=== PATIENT | male | born 1945 | race Caucasian/White ===

== ENCOUNTER 2016-03-20 11:33 | Emergency (ER) | payer OTHER ==
[~2016-03-20] VITALS: Ht 190.5 cm; Wt 101.6 kg
[~2016-03-20 11:33] MED LIST: ALL300 PO; ATOR-26 PO; CARB25TA16 PO; DILT180C9 PO; FISH1CAP3 PO; FURO-85 PO; GABA-112 PO; MCRK20 PO; MULT-506 PO; PRLSR20 PO; SPIR25TA PO; [UNRECOGNIZED DRUG - CODE] PO
[2016-03-20 11:39] VITALS: TEMP 36.5; Ht 190.5 cm; Wt 101.6 kg
--- NOTE | 2016-03-20 12:37 | EMERGENCY ROOM VISIT NOTE ---
History Report prepared by Ayala: Jesusita Petty Under the Supervision of: Dr. Lachelle Bull D.O. First contact with patient: 12:10 Chief Complaint: LEG PAIN,LEG INJURY Stated Complaint: SWELLING/PAIN TO LEGS HX: EDEMA History of Present Illness The patient is a 70 year old male who presents to the Emergency Room with complaints of worsened bilateral leg swelling over the past 4-5 days. The swelling is worse on the right leg to the point that he had trouble putting on his right shoe. He also complains of some bilateral leg pain. The patient has a history of neuropathy and edema. [facility], he told them about his symptoms and they recommended that he be seen at a hospital. Denies cough, chest pain, shortness of breath, or other complaints. Source of History: patient Onset: 4-5 days ago Position: leg (bilateral, right worse than left) Timing: worsening Associated Symptoms: No SOB, No chest pain, No cough Note: Other symptoms: leg swelling Review of Systems See HPI for pertinent positives & negatives. A total of 10 systems reviewed and were otherwise negative. Past Medical & Surgical Medical Problems: (1) Hypertension Family History Diabetes mellitus Social History Smoking Status: Former Smoker Alcohol Use: occasionally Marital Status: Housing Status: lives with family Occupation Status: retired Current/Historical Medications Scheduled Allopurinol (Allopurinol), 300 MG PO DAILY Amantadine Hcl (Amantadine Hcl), 100 MG PO BID Atorvastatin (Lipitor), 40 MG PO DAILY Carbidopa/Levodopa (Sinemet 25MG/100MG), 1 TAB PO DAILY Diltiazem Hcl (Tiazac), 180 MG PO BID Fish Oil-Cholecalciferol (Fish Oil + D3), 1 CAP PO DAILY Furosemide (Lasix), 20 MG PO DAILY Gabapentin (Neurontin), 300 MG PO TID Multivitamin (Multivitamin), 1 TAB PO DAILY Omeprazole (Prilosec), 20 MG PO DAILY Potassium Ext Rel (Klor-Con), 20 MEQ PO BID Rosuvastatin Calcium (Crestor), 20 MG PO DAILY Spironolactone (Aldactone), 25 MG PO DAILY Allergies Coded Allergies: No Known Allergies (Verified , 03/20/16) Physical Exam Vital Signs Date Time Temp Pulse Resp B/P Pulse Ox O2 Delivery O2 Flow Rate FiO2 03/20/16 14:35 65 18 134/78 98 03/20/16 13:29 65 17 131/87 97 Room Air 03/20/16 12:47 73 03/20/16 11:39 36.5 91 20 126/76 95 Room Air Physical Exam HEENT: Head - normocephalic and atraumatic Pupils are equal, round, and reactive to light. Extraocular eye muscles are intact, and sclera are anicteric. Nose - moist nasal mucosa without discharge. Mouth - moist buccal mucosa. Oropharynx is nonerythematous and there is no tonsillar exudate or edema noted. Neck: Supple; no JVD, nuchal rigidity, cervical lymphadenopathy. Heart: Regular rate and rhythm. There is a normal S1 and S2 with no murmurs, clicks, or gallops appreciated. Lungs: Clear to auscultation bilaterally with no wheezes, rales, or rhonchi. Abdomen: Soft, completely nontender, nondistended, with good bowel sounds. There are no palpable pulsatile masses or hepatosplenomegaly. There is no guarding, rigidity, or rebound noted. Extremities: No evidence of cyanosis or clubbing. Swelling to both legs, right worse than left. Small red area proximal right lateral fibula. This is on the anterior surface of the right lower extremity and does not appear cellulitic. There are easily palpable peripheral pulses. Skin: warm and dry with good turgor. Medical Decision & Procedures ER Provider Diagnostic Interpretation: Radiology results as stated below per my review and the radiologist's interpretation: ULTRASOUND RIGHT VENOUS DOPP LOWER EXT UNILAT CLINICAL HISTORY: Right leg swelling COMPARISON STUDY: No previous studies for comparison. FINDINGS: Real-time and color flow Doppler imaging were performed. Flow was seen within the femoral, popliteal and calf veins with no intraluminal thrombus demonstrated. The saphenous vein is patent. IMPRESSION: No evidence of right lower extremity DVT. Electronically signed by: Anup Dempsey M.D. 03/20/2016 1:27 PM Dictated Date/Time: 03/20/2016 1:27 PM ECG Indication: other (leg swelling) Rate (beats per minute): 69 Rhythm: normal sinus Findings: no acute ischemic change, no ectopy ED Course 1229: Past medical records reviewed. The patient was evaluated in room C7. A complete history and physical exam was performed. The patient will go for ultrasound of the right lower extremity to rule out DVT. 1349: Upon reevaluation, the patient was doing well. I discussed findings and results with the patient. I strongly encouraged him to use a walker or a cane due to the pain and neuropathy in his legs. He verbalized agreement of the treatment plan. The patient was discharged home. Medical Decision The patient is a 70 year old male who presents to the ED with leg swelling. Differential diagnosis includes DVT, CHF, peripheral artery disease, venostasis. The patient does have some increased swelling of the right leg. Ultrasound of that extremity shows no evidence of DVT. I've encouraged the patient to keep the leg elevated to minimize swelling. He should watch his salt intake. I've asked him to please use his cane or walker because of his neuropathy. He can follow-up with his PCP if symptoms persist. Impression Primary Impression: Lower extremity edema Scribe Attestation The scribe's documentation has been prepared under my direction and personally reviewed by me in its entirety. I confirm that the note above accurately reflects all work, treatment, procedures, and medical decision making performed by me. Departure Information Dispostion Home / Self-Care Referrals Diana Witt (PCP) Patient Instructions My [facility] Additional Instructions Rest with your legs elevated. Use your walker or cane to avoid falls Follow up with PCP if symptoms are worsening. Problem Qualifiers Primary Impression: Lower extremity edema Laterality: bilateral Qualified Codes: R60.0 - Localized edema
[2016-03-20] MEDS ORDERED: CARB25TA12 PO (12:42)
[2016-03-20] MEDS ORDERED: ALL300 PO (12:42)
[2016-03-20] MEDS ORDERED: ROSU20TA PO (12:42)
[2016-03-20] MEDS ORDERED: POTA20TA16 PO (12:45)
[2016-03-20] MEDS ORDERED: AMAN100C18 PO (12:46)
--- NOTE | 2016-03-20 13:29 | DIAGNOSTIC IMAGING REPORT ---
ULTRASOUND RIGHT VENOUS DOPP LOWER EXT UNILAT CLINICAL HISTORY: Right leg swelling COMPARISON STUDY: No previous studies for comparison. FINDINGS: Real-time and color flow Doppler imaging were performed. Flow was seen within the femoral, popliteal and calf veins with no intraluminal thrombus demonstrated. The saphenous vein is patent. IMPRESSION: No evidence of right lower extremity DVT. Electronically signed by: Anup Dempsey M.D. 03/20/2016 1:27 PM Dictated Date/Time: 03/20/2016 1:27 PM
[2016-03-20 14:35] VITALS: BP 134/78; PULSE 65; O2SAT 98
== END 2016-03-20 14:35 | disposition home or self-care (01) ==
LOC: C.EDB 11:37 → C.EDC 14:35
DX: R60.0 Localized edema (principal); M79.604 Pain in right leg; M79.605 Pain in left leg; L53.9 Erythematous condition, unspecified; G62.9 Polyneuropathy, unspecified; I10 Essential (primary) hypertension; Z83.3 Family history of diabetes mellitus; Z87.891 Personal history of nicotine dependence

== ENCOUNTER 2016-12-12 04:37 | Inpatient (IN) | payer OTHER ==
[2016-12-12] VITALS (7 sets, daily range): BP systolic 124–156; BP diastolic 89–95; PULSE 83–117; TEMP 36.7–37.2; O2SAT 94–98; Ht 190.5 cm; Wt 99.8 kg
[~2016-12-12] VITALS: Ht 190.5 cm; Wt 99.8 kg
[~2016-12-12 04:37] MED LIST changes: +AMAN100C18 PO; +CARB25TA12 PO; -CARB25TA16 PO; -MCRK20 PO; +POTA20TA16 PO; +ROSU20TA PO; -[UNRECOGNIZED DRUG - CODE] PO
--- NOTE | 2016-12-12 05:10 | EMERGENCY ROOM VISIT NOTE ---
History Report prepared by Ayala: Papito Antonio Under the Supervision of: Dr. Lachelle Bull D.O. First contact with patient: 04:54 Chief Complaint: ABDOMINAL PAIN Stated Complaint: ABD PAIN,DIARRHEA Nursing Triage Summary: mid upper abdominal pain. 12/09. started this evening around 2100 History of Present Illness The patient is a 71 year old male who presents to the Emergency Room with complaints of worsening abdominal pain that started at 1800. He rates his pain as a 10/10 in severity. The patient states that he did not feel well yesterday. He reports that he started to experience diarrhea, a cough, and abdominal pain that worsened throughout the day. He reports that it feels "like a gallbladder attack", even though he had a cholecystectomy 4 years ago. The patient states that he also has a history of C. Diff. and is worried that is what is causing his symptoms. Source of History: patient Onset: 1800 yesterday Position: abdomen Symptom Intensity: 12/09 Timing: worsening Associated Symptoms: + cough, + diarrhea Review of Systems See HPI for pertinent positives & negatives. A total of 10 systems reviewed and were otherwise negative. Past Medical & Surgical Medical Problems: (1) Hypertension Family History Diabetes mellitus Social History Smoking Status: Never Smoker Alcohol Use: occasionally Marital Status: Housing Status: lives with family Occupation Status: retired Current/Historical Medications Scheduled Allopurinol (Allopurinol), 300 MG PO DAILY Amantadine Hcl (Amantadine Hcl), 100 MG PO BID Atorvastatin (Lipitor), 40 MG PO DAILY Carbidopa-Levodopa (Sinemet Cr 50-200 mg), 1 TAB PO HS Carbidopa/Levodopa (Sinemet 25MG/100MG), 3 TABS PO BID AT 0600 & 1100 Carbidopa/Levodopa (Sinemet 25MG/100MG), 2 TABS DAILY AT 1600 Diltiazem Hcl (Tiazac), 180 MG PO BID Fish Oil-Cholecalciferol (Fish Oil + D3), 1 CAP PO DAILY Furosemide (Lasix), 20 MG PO DAILY Gabapentin (Neurontin), 300 MG PO TID Multivitamin (Multivitamin), 1 TAB PO DAILY Omeprazole (Prilosec), 20 MG PO DAILY Potassium Ext Rel (Klor-Con), 20 MEQ PO BID Rosuvastatin Calcium (Crestor), 20 MG PO DAILY Spironolactone (Aldactone), 25 MG PO DAILY Allergies Coded Allergies: No Known Allergies (Verified , 12/12/16) Physical Exam Vital Signs Date Time Temp Pulse Resp B/P (MAP) Pulse Ox O2 Delivery O2 Flow Rate FiO2 12/12/16 05:03 92 18 128/99 95 Room Air 12/12/16 05:00 93 12/12/16 04:40 36.7 106 18 112/73 95 Room Air Physical Exam HEENT: Head - normocephalic and atraumatic Pupils are equal, round, and reactive to light. Extraocular eye muscles are intact, and sclera are anicteric. Nose - moist nasal mucosa without discharge. Mouth - moist buccal mucosa. Oropharynx is nonerythematous and there is no tonsillar exudate or edema noted. Neck: Supple; no JVD, nuchal rigidity, cervical lymphadenopathy. Heart: Regular rate and rhythm. There is a normal S1 and S2 with no murmurs, clicks, or gallops appreciated. Lungs: Clear to auscultation bilaterally with no wheezes, rales, or rhonchi. Abdomen: Completely nontender, significantly distended, with absent bowel sounds. There are no palpable pulsatile masses or hepatosplenomegaly. There is no guarding, rigidity, or rebound noted. Extremities: No evidence of cyanosis, clubbing, or edema. There are easily palpable peripheral pulses. Skin: warm and dry with good turgor and no rashes. Medical Decision & Procedures ER Provider Diagnostic Interpretation: X-ray results as stated below per interpretation by me: OBSTRUCTION SERIES Multiple dilated loops of small bowel with air fluid levels. Laboratory Results 12/12/16 04:55 Red Blood Count 5.25, Mean Corpuscular Volume 92.8, Mean Corpuscular Hemoglobin 33.3, Mean Corpuscular Hemoglobin Concent 35.9, Mean Platelet Volume 11.7, Neutrophils (%) (Auto) 77.3, Lymphocytes (%) (Auto) 14.4, Monocytes (%) (Auto) 7.3, Eosinophils (%) (Auto) 0.5, Basophils (%) (Auto) 0.2, Neutrophils # (Auto) 11.57, Lymphocytes # (Auto) 2.16, Monocytes # (Auto) 1.09, Eosinophils # (Auto) 0.08, Basophils # (Auto) 0.03 12/12/16 04:55 Test 12/12/16 04:55 12/12/16 05:35 White Blood Count 14.98 K/uL (4.8-10.8) Red Blood Count 5.25 M/uL (4.7-6.1) Hemoglobin 17.5 g/dL (14.0-18.0) Hematocrit 48.7 % (42-52) Mean Corpuscular Volume 92.8 fL (80-100) Mean Corpuscular Hemoglobin 33.3 pg (25-34) Mean Corpuscular Hemoglobin Concent 35.9 g/dl (32-36) Platelet Count 211 K/uL (130-400) Mean Platelet Volume 11.7 fL (7.4-10.4) Neutrophils (%) (Auto) 77.3 % Lymphocytes (%) (Auto) 14.4 % Monocytes (%) (Auto) 7.3 % Eosinophils (%) (Auto) 0.5 % Basophils (%) (Auto) 0.2 % Neutrophils # (Auto) 11.57 K/uL (1.4-6.5) Lymphocytes # (Auto) 2.16 K/uL (1.2-3.4) Monocytes # (Auto) 1.09 K/uL (0.11-0.59) Eosinophils # (Auto) 0.08 K/uL (0-0.5) Basophils # (Auto) 0.03 K/uL (0-0.2) RDW Standard Deviation 45.8 fL (36.4-46.3) RDW Coefficient of Variation 13.5 % (11.5-14.5) Immature Granulocyte % (Auto) 0.3 % Immature Granulocyte # (Auto) 0.05 K/uL (0.00-0.02) Anion Gap 9.0 mmol/L (3-11) Est Creatinine Clear Calc Drug Dose 59.4 ml/min Estimated GFR () 53.9 Estimated GFR (Non- 46.5 BUN/Creatinine Ratio 15.4 (10-20) Calcium Level 9.0 mg/dl (8.5-10.1) Total Bilirubin 1.4 mg/dl (0.2-1) Direct Bilirubin 0.4 mg/dl (0-0.2) Aspartate Amino Transf (AST/SGOT) 51 U/L (15-37) Alanine Aminotransferase (ALT/SGPT) 52 U/L (12-78) Alkaline Phosphatase 159 U/L (45-117) Total Protein 7.9 gm/dl (6.4-8.2) Albumin 4.0 gm/dl (3.4-5.0) Lipase 280 U/L (73-393) Urine Color ORANGE Urine Appearance CLOUDY (CLEAR) Urine pH 5.0 (4.5-7.5) Urine Specific [place] 1.039 (1.000-1.030) Urine Protein 1+ (NEG) Urine Glucose (UA) NEG (NEG) Urine Ketones 1+ (NEG) Urine Occult Blood NEG (NEG) Urine Nitrite POS (NEG) Urine Bilirubin NEG (NEG) Urine Urobilinogen NEG (NEG) Urine Leukocyte Esterase SMALL (NEG) Urine WBC (Auto) 5-10 /hpf (0-5) Urine RBC (Auto) 0-4 /hpf (0-4) Urine Hyaline Casts (Auto) 10-30 /lpf (0-5) Urine Epithelial Cells (Auto) >30 /lpf (0-5) Urine Bacteria (Auto) NEG (NEG) Urine Pathogenic Casts 0-3 GRANULAR CASTS /lpf (0) Urine Mucus PRESENT (NONE PRSENT) Laboratory results per my review. Medications Administered Medications (Trade) Dose Ordered Sig/Sylvia Route Start Time Stop Time Status Last Admin Dose Admin Sodium Chloride 1,000 ml @ 200 mls/hr Q5H STAT IV 12/12/16 05:36 12/12/16 10:35 12/12/16 06:29 200 MLS/HR Procedure Medications administered include: Sodium Chloride 1000 ml @ 200 mls/hr IV. ECG Indication: abdominal pain (epigastric) Rate (beats per minute): 96 Rhythm: normal sinus Findings: no acute ischemic change, no ectopy ED Course 0501: The patient was evaluated in room B09. A complete history and physical examination were performed. Nursing notes and previous electronic medical records were reviewed. IV lock was established and labs were drawn as above. A urine specimen was collected. 0536: Ordered Sodium Chloride 1000 ml @ 200 mls/hr IV. The patient declined wanting anything for pain. He went for CT of the abdomen/pelvis an obstruction series. This showed evidence of a small bowel obstruction with dilated loops of small bowel and air-fluid levels. 0542: I reevaluated the patient and updated him on his results. I discussed the treatment plan. He will be receiving an NG tube. The patient agrees to the plan and will be further evaluated. 0546: I discussed the patient's case with Joaquin Centeno. He understands the patient's condition and agrees to accept the patient. The patient will be further evaluated. 0631: Nursing informed me that the patient was unable to tolerate the NG tube placement. Medical Decision The patient is a 71 year old male who presents to the ED with worsening abdominal pain that began at 1800 yesterday. Differential diagnosis includes pancreatitis, SBO, Clostridium Difficile, colitis, urinary obstruction. Lab results show: White blood count14.9 stable H&H, BUN 23, Creatinine 1.5 elevated compared to previous labs, Glucose 146, total bilirubin 1.4, Direct bilirubin 0.4. alkaline phosphatase 159, 1+ ketones, positive nitrite, small leukocyte esterase, 5-10 WBC, negative bacteria. This is a 71-year-old male patient presents to the emergency department with epigastric and right upper quadrant abdominal pain since last evening. His abdomen is significantly distended and tender to palpation. Obstruction series shows no evidence of free air but does reveal dilated loops of small bowel with air-fluid levels consistent with a bowel obstruction. Patient has had an episode of stooling. The stool is partially formed and was not diarrhea. I do not suspect C. difficile. [facility] will [facility] for further management. Medication Reconcilliation Current Medication List: was personally reviewed by me Blood Pressure Screening Patient's blood pressure: Normal blood pressure Consults Time Called: 05 Consulting Physician: Joaquin Centeno Returned Call: [phone] [facility] understands the patient's condition and agrees to accept the patient. The patient will be further evaluated. Impression Primary Impression: Partial small bowel obstruction Scribe Attestation The scribe's documentation has been prepared under my direction and personally reviewed by me in its entirety. I confirm that the note above accurately reflects all work, treatment, procedures, and medical decision making performed by me. Departure Information Dispostion Being Evaluated By Hospitalist Referrals No Doctor, Assigned (PCP) Patient Instructions My [facility] [address]
[2016-12-12] MEDS ORDERED: CARB1TAB59 PO (05:12)
[2016-12-12] MEDS ORDERED: NRN/300 PO (05:12)
[2016-12-12] MEDS ORDERED: CARB25TA12 (05:12)
[2016-12-12 05:28] LABS: BASO % 0.2 %; BASO ABS # 0.03 K/uL (0-0.2); COMPLETE YES; EOS % 0.5 %; HEMATOCRIT 48.7 % (42-52); IG% 0.3 %; LYMPH % 14.4 %; LYMPH ABS # 2.16 K/uL (1.2-3.4); MEAN CELL VOLUME 92.8 fL (80-100); MEAN CORPUSCULAR HEMOGLOBIN 33.3 pg (25-34); MEAN CORPUSCULAR HGB CONC 35.9 g/dl (32-36); MEAN PLATELET VOLUME 11.7 fL (7.4-10.4); MONO % 7.3 %; NEUT % 77.3 %; PLATELET COUNT 211 K/uL (130-400); RED BLOOD COUNT 5.25 M/uL (4.7-6.1); WHITE BLOOD COUNT 14.98 K/uL (4.8-10.8)
[2016-12-12 05:35] LABS: BUN/CREATININE RATIO 15.4 (10-20); CREATININE 1.5 mg/dl (0.60-1.40); POTASSIUM 4.2 mmol/L (3.5-5.1)
[2016-12-12] MEDS ORDERED: SODIUM CHLORIDE 0.9% 1000ML 1,000 ML IV STA (05:36)
[2016-12-12] MEDS ORDERED: ONDANSETRON INJ 2 MG/ML 2 ML VIAL IV PRN (06:30)
[2016-12-12] MEDS ORDERED: ACETAMINOPHEN 325 MG TAB PO PRN (06:30)
[2016-12-12 06:33] LABS: URINE APPEARANCE CLOUDY (CLEAR); URINE COLOR ORANGE; URINE EPITHELIAL CELL AUTO >30 /lpf (0-5); URINE NITRITE POS (NEG); URINE SPECIFIC GRAVITY 1.039 (1.000-1.030); UROBILINOGEN NEG (NEG)
[2016-12-12 06:34] LABS: MANUAL MICROSCOPIC REQUIRED? NO; REVIEW REQ? YES
[2016-12-12 06:35] LABS: URINE BILIRUBIN NEG (NEG)
[2016-12-12] MEDS ORDERED: MoRPHine SULFATE 2 MG/ML CARP IV PRN (06:45)
[2016-12-12 06:47] LABS: URINE PATH CASTS 0-3 GRANULAR CASTS /lpf (0)
[2016-12-12 06:49] LABS: URINE MUCUS PRESENT (NONE PRSENT)
--- NOTE | 2016-12-12 06:53 | DIAGNOSTIC IMAGING REPORT ---
PA CHEST RADIOGRAPH AND UPRIGHT AND SUPINE AP RADIOGRAPHS OF THE ABDOMEN CLINICAL HISTORY: Nausea and vomiting. Evaluate for small bowel obstruction. COMPARISON STUDY: Chest radiograph June 03, [address] of the abdomen and pelvis July 18, 2014. FINDINGS: Moderate elevation of the right hemidiaphragm is unchanged. Linear bibasilar opacities suggest atelectasis. There is no evidence of pulmonary edema. No pneumothorax or pleural effusion is present. There is no free air. Numerous loops of moderately dilated small bowel measure up to 4.8 cm in caliber. These are clustered within the right aspect of the abdomen. There are pelvic surgical clips. There are cholecystectomy clips. IMPRESSION: 1. Numerous loops of moderately dilated small bowel consistent with a small bowel obstruction. 2. No free air. 3. No acute cardiopulmonary findings. Electronically signed by: Jaiden Diggs M.D. 12/12/2016 6:52 AM Dictated Date/Time: 12/12/2016 6:49 AM
--- NOTE | 2016-12-12 07:16 | History and Physical ---
History & Physical Date & Time of Service: Dec 12, 2016 at 06:50 Chief Complaint: Abd Pain,Diarrhea Primary Care Physician: Diana Witt History of Present Illness Source: patient Patient is a 71 yr male with PMH of Parkinson's disease, HTN, HLP, Gout, GERD, peripheral Neuropathy, SBO and history of C.diff presents with history of worsening abdominal pain associated with nausea, vomiting and diarrhea since yesterday. Reports abdominal pain is diffuse, constant, sharp to dull, 9/10, non radiating and with out any aggravating/relieving factors. Also reports diarrhea, non bloody yesterday which has subsided today after use of pepto- bismol. States he had 2 episodes of watery, non bloody vomitus as well and has intermittent dizziness. He had cholecystectomy, prostatectomy and appendectomy in the past. Denies any history of fever, chills, chest pain, SOB, headache, change in vision, dysuria, cough, wheezing, recent change in medications. Past Medical/Surgical History Medical Problems: (1) Hypertension Status: Chronic Family History Diabetes mellitus Reviewed, Not contributory Social History Smoking Status: Former Smoker Alcohol Use: socially Drug Use: none Marital Status: Housing status: lives with family Occupational Status: retired Immunizations History of Influenza Vaccine: Yes Influenza Vaccine Date: Dec 06, 2009 History of Tetanus Vaccine?: Yes Tetanus Immunization Date: Dec 07, 2002 History of Pneumococcal: No History of Hepatitis B Vaccine: No Multi-Drug Resistant Organisms History of MDRO: No Allergies Coded Allergies: No Known Allergies (Verified , 12/12/16) Home Medications Scheduled Allopurinol (Allopurinol), 300 MG PO DAILY Amantadine Hcl (Amantadine Hcl), 100 MG PO BID Atorvastatin (Lipitor), 40 MG PO DAILY Carbidopa-Levodopa (Sinemet Cr 50-200 mg), 1 TAB PO HS Carbidopa/Levodopa (Sinemet 25MG/100MG), 3 TABS PO BID AT 0600 & 1100 Carbidopa/Levodopa (Sinemet 25MG/100MG), 2 TABS DAILY AT 1600 Diltiazem Hcl (Tiazac), 180 MG PO BID Fish Oil-Cholecalciferol (Fish Oil + D3), 1 CAP PO DAILY Furosemide (Lasix), 20 MG PO DAILY Gabapentin (Neurontin), 300 MG PO TID Multivitamin (Multivitamin), 1 TAB PO DAILY Omeprazole (Prilosec), 20 MG PO DAILY Potassium Ext Rel (Klor-Con), 20 MEQ PO BID Rosuvastatin Calcium (Crestor), 20 MG PO DAILY Spironolactone (Aldactone), 25 MG PO DAILY Review of Systems See HPI for pertinent positives & negatives. A total of 10 systems reviewed and were otherwise negative. Physical Exam Vital Signs Date Time Temp Pulse Resp B/P (MAP) Pulse Ox O2 Delivery O2 Flow Rate FiO2 12/12/16 05:03 92 18 128/99 95 Room Air 12/12/16 05:00 93 12/12/16 04:40 36.7 106 18 112/73 95 Room Air General Appearance: WD/WN, no apparent distress Head: normocephalic, atraumatic Eyes: normal inspection, PERRL, EOMI, sclerae normal ENT: normal ENT inspection, hearing grossly normal Neck: supple, no JVD, trachea midline Respiratory/Chest: chest non-tender, lungs clear, no accessory muscle use, + decreased breath sounds Cardiovascular: regular rate, rhythm, no edema, no JVD, no murmur Abdomen/GI: soft, + tenderness (Epigastric, LUQ), + pertinent finding ( Distended, decreased bowel sounds) Back: normal inspection Extremities/Musculoskelatal: normal inspection, no pedal edema 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, no motor/sensory deficits, alert, normal mood/affect, oriented x 3 Skin: normal color, warm/dry Diagnostics Laboratory Results Results Past 24 Hours Test 12/12/16 04:55 12/12/16 05:35 Range/Units White Blood Count 14.98 4.8-10.8 K/uL Red Blood Count 5.25 4.7-6.1 M/uL Hemoglobin 17.5 14.0-18.0 g/dL Hematocrit 48.7 42-52 % Mean Corpuscular Volume 92.8 80-100 fL Mean Corpuscular Hemoglobin 33.3 25-34 pg Mean Corpuscular Hemoglobin Concent 35.9 32-36 g/dl Platelet Count 211 130-400 K/uL Mean Platelet Volume 11.7 7.4-10.4 fL Neutrophils (%) (Auto) 77.3 % Lymphocytes (%) (Auto) 14.4 % Monocytes (%) (Auto) 7.3 % Eosinophils (%) (Auto) 0.5 % Basophils (%) (Auto) 0.2 % Neutrophils # (Auto) 11.57 1.4-6.5 K/uL Lymphocytes # (Auto) 2.16 1.2-3.4 K/uL Monocytes # (Auto) 1.09 0.11-0.59 K/uL Eosinophils # (Auto) 0.08 0-0.5 K/uL Basophils # (Auto) 0.03 0-0.2 K/uL RDW Standard Deviation 45.8 36.4-46.3 fL RDW Coefficient of Variation 13.5 11.5-14.5 % Immature Granulocyte % (Auto) 0.3 % Immature Granulocyte # (Auto) 0.05 0.00-0.02 K/uL Sodium Level 139 136-145 mmol/L Potassium Level 4.2 3.5-5.1 mmol/L Chloride Level 105 98-107 mmol/L Carbon Dioxide Level 25 21-32 mmol/L Anion Gap 9.0 3-11 mmol/L Blood Urea Nitrogen 23 7-18 mg/dl Creatinine 1.50 0.60-1.40 mg/dl Est Creatinine Clear Calc Drug Dose 59.4 ml/min Estimated GFR () 53.9 Estimated GFR (Non- 46.5 BUN/Creatinine Ratio 15.4 10-20 Random Glucose 146 70-99 mg/dl Calcium Level 9.0 8.5-10.1 mg/dl Total Bilirubin 1.4 0.2-1 mg/dl Direct Bilirubin 0.4 0-0.2 mg/dl Aspartate Amino Transf (AST/SGOT) 51 15-37 U/L Alanine Aminotransferase (ALT/SGPT) 52 12-78 U/L Alkaline Phosphatase 159 45-117 U/L Total Protein 7.9 6.4-8.2 gm/dl Albumin 4.0 3.4-5.0 gm/dl Lipase 280 73-393 U/L Urine Color ORANGE Urine Appearance CLOUDY CLEAR Urine pH 5.0 4.5-7.5 Urine Specific [place] 1.039 1.000-1.030 Urine Protein 1+ NEG Urine Glucose (UA) NEG NEG Urine Ketones 1+ NEG Urine Occult Blood NEG NEG Urine Nitrite POS NEG Urine Bilirubin NEG NEG Urine Urobilinogen NEG NEG Urine Leukocyte Esterase SMALL NEG Urine WBC (Auto) 5-10 0-5 /hpf Urine RBC (Auto) 0-4 0-4 /hpf Urine Hyaline Casts (Auto) 10-30 0-5 /lpf Urine Epithelial Cells (Auto) >30 0-5 /lpf Urine Bacteria (Auto) NEG NEG Urine Pathogenic Casts 0-3 GRANULAR CASTS 0 /lpf Urine Mucus PRESENT NONE PRSENT Microbiology Results 12/12/16 C.difficile Toxin B Gene (PCR), Received Pending Diagnostic Radiology Abdominal X ray: findings showed Multiple dilated loops of small bowel with air fluid levels suggestive of SBO Official read is pending EKG EKG: NSR, LAFB Impression Assessment and Plan Abdominal pain secondary to SBO: h/o SBO and cholecystectomy, prostatectomy and appendectomy NG tube, IV fluids, pain control Surgery consulted NPO for now Diarrhea: Likely secondary to above H/O C.diff Check stool for C.diff LLUVIA: likely prerenal Cr: 1.5 on admission IV fluids Hold diuretics for now monitor renal function avoid nephrotoxic meds as able Leukocytosis: Likely reactive Contaminated Urine sample Afebrile, denies dysuria Urine culture Hold Abx for now check lactate, procalcitonin Parkinson's disease: continue home meds HTN: Continue BB Diuretics held secondary to LLUVIA monitor Gout: on allopurinol GERD: continue PPI Peripheral Neuropathy: continue gabapentin DVT Px: Heparin SQ Code Status: Full Code VTE Prophylaxis VTE Risk Assessment Done? Y/N: Yes Risk Level: Low
[2016-12-12 08:27] LABS: INR 1.1 (0.9-1.1); PROTHROMBIN TIME (PATIENT) 11.3 SECONDS (9.0-12.0)
[2016-12-12] MEDS ORDERED: INFLUENZA VACCINE HIGH DOSE 65+ 0.5 ML SYR IM. ONE (08:45)
[2016-12-12] MEDS ORDERED: INFLUENZA ADMINISTRATION CHARGE ONE (08:45)
[2016-12-12] MEDS ORDERED: DILTIAZEM HCL (TIAzac) 180 MG CAPCR PO SCH (09:00)
[2016-12-12] MEDS ORDERED: ALLOPURINOL 300 MG TAB PO SCH (09:00)
[2016-12-12] MEDS: SODIUM CHLORIDE 0.9% 1000ML 1,000 ML IV SCH ×3 (09:02→23:33)
--- NOTE | 2016-12-12 09:05 | SURGICAL CONSULTATION ---
DATE OF ADMISSION: 12/12/2016 REASON FOR CONSULTATION: Bowel obstruction. HISTORY OF PRESENT ILLNESS: The patient is a 71-year-old male who has had prior surgeries including cholecystectomy, prostatectomy and appendectomy who presents to the Emergency Room with abdominal pain, nausea and vomiting and some diarrhea. He has a remote history of C. difficile also on note is that he is dehydrated with elevated white blood cell count, H&H, and BUN and creatinine. He did have an abdominal film which does show dilated loops of small bowel. I did attempt NG tube placement in the Emergency Room with no success apparently and it was coming out of his mouth. REVIEW OF SYSTEMS: He does not have any evidence of fever, chills, chest pain, shortness of breath, headache, change in vision, dysuria, cough, wheezing. Other review of systems including 10 systems is negative. FAMILY AND SOCIAL HISTORY: Noncontributory. ALLERGIES: He has no known drug allergies. MEDICATIONS: Please see list for his medications. PHYSICAL EXAMINATION: GENERAL: He is well-developed, well-nourished male. HEAD: His head is atraumatic. EYES: His sclerae are normal. NECK: Supple. SKIN: Normal color without rashes. CHEST: Clear. HEART: Regular rate and rhythm. ABDOMEN: Distended. He has minimal tenderness, some to deep palpation in the upper abdomen. He does have some bowel sounds but diminished. EXTREMITIES: Without significant edema. SKIN: Normal color. IMAGING DATA: I did review his abdominal film. ASSESSMENT AND PLAN: A 71-year-old male with what appears to be a partial small bowel obstruction. He would benefit from an NG tube and we will try to place the tube. I have also discussed with ENT helping us if we could not place it. We will try to see how the patient does with nonoperative management; however, if he does worsen, he may need a laparotomy with lysis of adhesions.
[2016-12-12] MEDS ORDERED: RASPBERRY SYRUP 5 ML UDP PO SCH (10:30)
[2016-12-12] MEDS ORDERED: VANCOMYCIN HCL 125 MG/2.5ML SOLN PO SCH (10:30)
[2016-12-12] MEDS: CARBIDOPA/LEVODOPA 25/100MG TAB PO SCH ×3 (11:00→15:36)
[2016-12-12] MEDS: AMANTADINE HCL 100 MG CAP PO SCH ×2 (11:12→21:31)
[2016-12-12] MEDS: GABAPENTIN 300 MG CAP PO SCH ×3 (11:12→21:31)
[2016-12-12] MEDS: PANTOprazole INJ 40 MG in SYRINGE 0 ML IV SCH (11:13)
[2016-12-12] MEDS ORDERED: DILTIAZEM HCL 60 MG TAB NG SCH (14:00)
[2016-12-12] MEDS: HEPARIN SOD 5000 UNIT/0.5 ML CARP SQ SCH ×2 (14:42→21:40)
[2016-12-12] MEDS: VANCOMYCIN HCL 125 MG/2.5ML SOLN NG SCH ×2 (15:35→21:40)
[2016-12-12] MEDS: RASPBERRY SYRUP 5 ML UDP NG SCH ×2 (15:36→21:40)
[2016-12-12 16:35] LABS: BUN/CREATININE RATIO 22.4 (10-20); CALCIUM 8.4 mg/dl (8.5-10.1); CREATININE 1.1 mg/dl (0.60-1.40); POTASSIUM 3.8 mmol/L (3.5-5.1)
[2016-12-12] MEDS: DILTIAZEM HCL 60 MG TAB NG SCH ×2 (18:27→23:35)
--- NOTE | 2016-12-12 18:49 | Progress Note ---
Medicine Progress Note Date & Time of Visit: Dec 12, 2016 at 18:33. Subjective Patient reports feeling miserable; states his throat is sore from the NG tube and wants to know when he can have it removed and drink some water. Family at the bedside and updated. No overnight events noted. It took several attempts to get NG tube placed this AM. Patient states he has not been passing flatus but has been burping. He also reports having a small BM. Objective Last 8 Hrs Date Time Temp Pulse Resp B/P (MAP) Pulse Ox O2 Delivery O2 Flow Rate FiO2 12/12/16 18:25 109 156/95 (115) 12/12/16 15:16 37.2 117 18 134/91 (105) 94 Room Air 12/12/16 14:38 108 95 Room Air 12/12/16 12:54 115 22 147/92 (110) 94 Room Air Physical Exam: GENERAL: Patient is in no acute distress. HEENT: No acute trauma, normocephalic atraumatic, mucous membranes moist, no nasal congestion, no scleral icterus. Hearing grossly intact. Conjunctivae clear. NECK: No stridor, trachea is midline. LUNGS: Clear to auscultation bilaterally, no wheeze, no rhonchi, breath sounds equal. HEART: Without murmurs gallops or rubs, regular rate and rhythm. ABDOMEN: Soft, nontender, bowel sounds hypoactive, slightly distended EXTREMITIES: No cyanosis or edema, no joint swelling, moving all 4 extremities NEUROLOGIC: Oriented x 3, no acute motor or sensory deficits, no focal weakness. SKIN: No rash, no jaundice, no diaphoresis. Laboratory Results: Last 24 Hours Test 12/12/16 04:55 12/12/16 05:35 12/12/16 07:53 12/12/16 08:00 White Blood Count 14.98 K/uL Red Blood Count 5.25 M/uL Hemoglobin 17.5 g/dL Hematocrit 48.7 % Mean Corpuscular Volume 92.8 fL Mean Corpuscular Hemoglobin 33.3 pg Mean Corpuscular Hemoglobin Concent 35.9 g/dl Platelet Count 211 K/uL Mean Platelet Volume 11.7 fL Neutrophils (%) (Auto) 77.3 % Lymphocytes (%) (Auto) 14.4 % Monocytes (%) (Auto) 7.3 % Eosinophils (%) (Auto) 0.5 % Basophils (%) (Auto) 0.2 % Neutrophils # (Auto) 11.57 K/uL Lymphocytes # (Auto) 2.16 K/uL Monocytes # (Auto) 1.09 K/uL Eosinophils # (Auto) 0.08 K/uL Basophils # (Auto) 0.03 K/uL RDW Standard Deviation 45.8 fL RDW Coefficient of Variation 13.5 % Immature Granulocyte % (Auto) 0.3 % Immature Granulocyte # (Auto) 0.05 K/uL Sodium Level 139 mmol/L Potassium Level 4.2 mmol/L Chloride Level 105 mmol/L Carbon Dioxide Level 25 mmol/L Anion Gap 9.0 mmol/L Blood Urea Nitrogen 23 mg/dl Creatinine 1.50 mg/dl Est Creatinine Clear Calc Drug Dose 59.4 ml/min Estimated GFR () 53.9 Estimated GFR (Non- 46.5 BUN/Creatinine Ratio 15.4 Random Glucose 146 mg/dl Calcium Level 9.0 mg/dl Total Bilirubin 1.4 mg/dl Direct Bilirubin 0.4 mg/dl Aspartate Amino Transf (AST/SGOT) 51 U/L Alanine Aminotransferase (ALT/SGPT) 52 U/L Alkaline Phosphatase 159 U/L Total Protein 7.9 gm/dl Albumin 4.0 gm/dl Lipase 280 U/L Urine Color ORANGE Urine Appearance CLOUDY Urine pH 5.0 Urine Specific [place] 1.039 Urine Protein 1+ Urine Glucose (UA) NEG Urine Ketones 1+ Urine Occult Blood NEG Urine Nitrite POS Urine Bilirubin NEG Urine Urobilinogen NEG Urine Leukocyte Esterase SMALL Urine WBC (Auto) 5-10 /hpf Urine RBC (Auto) 0-4 /hpf Urine Hyaline Casts (Auto) 10-30 /lpf Urine Epithelial Cells (Auto) >30 /lpf Urine Bacteria (Auto) NEG Urine Pathogenic Casts 0-3 GRANULAR CASTS /lpf Urine Mucus PRESENT Lactic Acid Level 1.9 mmol/L Procalcitonin 0.12 ng/ml Prothrombin Time 11.3 SECONDS Prothromb Time International Ratio 1.1 Activated Partial Thromboplast Time 26.4 SECONDS Partial Thromboplastin Ratio 1.0 Test 12/12/16 16:06 Sodium Level 140 mmol/L Potassium Level 3.8 mmol/L Chloride Level 108 mmol/L Carbon Dioxide Level 22 mmol/L Anion Gap 10.0 mmol/L Blood Urea Nitrogen 25 mg/dl Creatinine 1.10 mg/dl Est Creatinine Clear Calc Drug Dose 74.7 ml/min Estimated GFR () 78.4 Estimated GFR (Non- 67.7 BUN/Creatinine Ratio 22.4 Random Glucose 115 mg/dl Calcium Level 8.4 mg/dl Date/Time Source Procedure Growth Status 12/12/16 05:35 Stool C.difficile Toxin B Gene (PCR) - Final Positive for C. difficile toxin B gene Complete 12/12/16 10:02 Urine , Clean Catch Urine Culture Pending Received Assessment & Plan PARTIAL SBO: -has prior hx of SBO -surgical history: cholecystectomy, prostatectomy and appendectomy -NG tube placed this AM, draining moderate amounts of bilious gastric contents -IV fluids -PRN pain control and anti emetics -Surgery consulted, appreciate recs -NPO for now -meds being given via NG with clamping NG afterwards C DIFF COLITIS: -started PO vancomycin day #1 (administer via NG) -2nd lifetime occurrence -patient with diarrhea prior to SBO; could also be the cause of patients SBO LLUVIA: -likely prerenal from hypovolemia and above -Cr: 1.5 on admission; now 1.1 -continued on IV fluids -hold diuretics -avoid nephrotoxic meds POSSIBLE UTI: -has leukocytosis which could just be due to the C diff colitis -Urine sample appears contaminated; obtain culture -afebrile, asymptomatic -await culture to decide whether abx are truly needed -lactate and procalcitonin negative PARKINSONS DISEASE: -continue home meds; if unable to crush sinemet, can hold until NG tube out HTN: -continue cardizem -diuretics on hold for now; secondary to LLUVIA GOUT: -continue on allopurinol GERD: -continue PPI IV PERIPHERAL NEUROPATHY: -continue gabapentin -ok to open capsules and give this medication via NG tube Current Inpatient Medications: Current Inpatient Medications Medications (Trade) Dose Ordered Sig/Sylvia Route Start Time Stop Time Status Last Admin Dose Admin Heparin Sodium (Porcine) (Heparin Sq 5000 Unit/0.5ml) 5,000 unit Q8H SQ 12/12/16 14:00 01/11/17 13:59 12/12/16 14:42 5,000 UNIT Acetaminophen (Tylenol Tab) 650 mg Q4H PRN PO 12/12/16 06:30 01/11/17 06:29 12/12/16 18:27 650 MG Ondansetron HCl (Zofran Inj) 4 mg Q6H PRN IV 12/12/16 06:30 01/11/17 06:29 Sodium Chloride 1,000 ml @ 125 mls/hr Q8H IV 12/12/16 08:00 01/11/17 07:59 12/12/16 15:38 125 MLS/HR Morphine Sulfate (MoRPHine SULFATE INJ) 2 mg Q3H PRN IV 12/12/16 06:45 12/26/16 06:44 Pantoprazole Sodium 40 mg/ Syringe 10 ml @ 5 mls/min DAILY@11 IV 12/12/16 11:00 01/11/17 10:59 12/12/16 11:13 5 MLS/MIN Amantadine HCl (Symmetrel Cap) 100 mg BID PO 12/12/16 09:00 01/11/17 08:59 Diltiazem HCl (TIAzac CAP) 180 mg BID PO 12/12/16 09:00 01/11/17 08:59 Future Hold Gabapentin (Neurontin Cap) 300 mg TID PO 12/12/16 09:00 01/11/17 08:59 12/12/16 14:40 300 MG Carbidopa/Levodopa (Sinemet Cr 50/ 200MG Tab) 1 tab HS PO 12/12/16 21:00 01/11/17 20:59 Carbidopa/Levodopa (Sinemet 25/ 100MG Tab) 3 tab BID@0600,1100 PO 12/12/16 07:00 01/11/17 06:59 Carbidopa/Levodopa (Sinemet 25/ 100MG Tab) 2 tab DAILY@1600 PO 12/12/16 16:00 01/11/17 15:59 12/12/16 15:36 2 TAB Vancomycin HCl (Vancomycin Oral Soln) 125 mg Q6@0400,1000,1600,2200 NG 12/12/16 16:00 12/22/16 15:59 12/12/16 15:35 125 MG Allopurinol (Zyloprim Tab) 300 mg DAILY NG 12/13/16 09:00 01/11/17 08:59 Raspberry (Raspberry Syrup 5ml Cup) 5 ml Q6@0400,1000,1600,2200 NG 12/12/16 16:00 12/26/16 15:59 Diltiazem HCl (Cardizem Tab) 60 mg Q6 NG 12/12/16 18:00 01/11/17 13:59 12/12/16 18:27 60 MG
[2016-12-12] MEDS: CARBIDOPA/LEVODOPA 50/200MG EXT REL TAB PO SCH (21:31)
[2016-12-13] VITALS (7 sets, daily range): BP systolic 151–172; BP diastolic 88–103; PULSE 76–88; TEMP 36.6–36.9; O2SAT 96–97
[2016-12-13] MEDS: RASPBERRY SYRUP 5 ML UDP NG SCH (03:18)
[2016-12-13] MEDS: VANCOMYCIN HCL 125 MG/2.5ML SOLN NG SCH ×4 (03:19→21:21)
[2016-12-13] MEDS: METRONIDAZOLE / NSS 500 MG in PREMIXED NSS 100 ML IV SCH ×3 (05:39→21:21)
[2016-12-13] MEDS: DILTIAZEM HCL 60 MG TAB NG SCH ×3 (05:40→18:33)
[2016-12-13] MEDS: HEPARIN SOD 5000 UNIT/0.5 ML CARP SQ SCH ×3 (05:49→21:23)
[2016-12-13] MEDS: CARBIDOPA/LEVODOPA 25/100MG TAB PO SCH ×3 (05:50→16:35)
[2016-12-13 06:19] LABS: BASO % 0.6 %; BASO ABS # 0.04 K/uL (0-0.2); COMPLETE YES; EOS % 3.6 %; HEMATOCRIT 40.5 % (42-52); IG% 0.2 %; LYMPH ABS # 1.65 K/uL (1.2-3.4); MEAN CELL VOLUME 94.2 fL (80-100); MEAN CORPUSCULAR HEMOGLOBIN 33.5 pg (25-34); MEAN CORPUSCULAR HGB CONC 35.6 g/dl (32-36); MEAN PLATELET VOLUME 11.1 fL (7.4-10.4); MONO % 10.6 %; PLATELET COUNT 145 K/uL (130-400)
[2016-12-13 06:40] LABS: BUN/CREATININE RATIO 24.1 (10-20); CREATININE 0.88 mg/dl (0.60-1.40); MAGNESIUM 2.1 mg/dl (1.8-2.4); PHOSPHORUS 2.3 mg/dl (2.5-4.9); POTASSIUM 3.7 mmol/L (3.5-5.1)
--- NOTE | 2016-12-13 07:12 | DIAGNOSTIC IMAGING REPORT ---
ABDOMEN 2 VIEWS CLINICAL HISTORY: Small bowel obstruction. FINDINGS: Portable supine and decubitus abdominal radiographs are compared to study dated 12/12/2016 and correlated with abdominal CT dated 07/18/2014. An enteric tube has been placed and projects over the proximal stomach. Cholecystectomy clips are noted. Surgical clips are also seen in the pelvis. Again seen are distended and gas-filled loops of small bowel. These measure up to 4.7 cm in diameter. The appearance remains consistent with a small bowel obstruction. No evidence of intraperitoneal free air is seen on the decubitus view. There are no abnormal abdominal calcifications. Bibasilar airspace opacities likely represent atelectasis. The skeletal structures are osteopenic. Lumbosacral spondylosis is observed. IMPRESSION: 1. An enteric tube has been placed. The tip projects over the proximal stomach. 2. There is evidence of persistent small bowel obstruction. Electronically signed by: Ti Mathews M.D. 12/13/2016 7:11 AM Dictated Date/Time: 12/13/2016 7:09 AM
[2016-12-13] MEDS: SODIUM CHLORIDE 0.9% 1000ML 1,000 ML IV SCH ×2 (08:08→16:33)
--- NOTE | 2016-12-13 08:34 | Surgery Progress Note ---
Surgery Progress Note Date of Service Dec 13, 2016. Subjective had 2 normal bms last pm and yesterday, less pain NG output much less, labs ok, wbc normal film shows dilated sm bowel- not worse Objective Vital Signs: Date Time Temp Pulse Resp B/P (MAP) Pulse Ox O2 Delivery O2 Flow Rate FiO2 12/13/16 07:45 36.7 80 16 157/88 (111) 96 Room Air 12/12/16 23:35 37.0 83 16 151/89 (109) 95 Room Air 12/12/16 23:29 Room Air 12/12/16 18:25 109 156/95 (115) 12/12/16 15:50 Room Air 12/12/16 15:16 37.2 117 18 134/91 (105) 94 Room Air 12/12/16 14:38 108 95 Room Air 12/12/16 12:54 115 22 147/92 (110) 94 Room Air General Appearance: no apparent distress Respiratory/Chest: no respiratory distress Abdomen: soft (some bowel ounds) Laboratory Results: Results Past 24 Hours Test 12/12/16 16:06 12/13/16 05:57 Range/Units Sodium Level 140 141 136-145 mmol/L Potassium Level 3.8 3.7 3.5-5.1 mmol/L Chloride Level 108 110 98-107 mmol/L Carbon Dioxide Level 22 25 21-32 mmol/L Anion Gap 10.0 6.0 3-11 mmol/L Blood Urea Nitrogen 25 21 7-18 mg/dl Creatinine 1.10 0.88 0.60-1.40 mg/dl Est Creatinine Clear Calc Drug Dose 74.7 93.4 ml/min Estimated GFR () 78.4 100.9 Estimated GFR (Non- 67.7 87.0 BUN/Creatinine Ratio 22.4 24.1 10-20 Random Glucose 115 91 70-99 mg/dl Calcium Level 8.4 8.0 8.5-10.1 mg/dl White Blood Count 6.60 4.8-10.8 K/uL Red Blood Count 4.30 4.7-6.1 M/uL Hemoglobin 14.4 14.0-18.0 g/dL Hematocrit 40.5 42-52 % Mean Corpuscular Volume 94.2 80-100 fL Mean Corpuscular Hemoglobin 33.5 25-34 pg Mean Corpuscular Hemoglobin Concent 35.6 32-36 g/dl Platelet Count 145 130-400 K/uL Mean Platelet Volume 11.1 7.4-10.4 fL Neutrophils (%) (Auto) 60.0 % Lymphocytes (%) (Auto) 25.0 % Monocytes (%) (Auto) 10.6 % Eosinophils (%) (Auto) 3.6 % Basophils (%) (Auto) 0.6 % Neutrophils # (Auto) 3.96 1.4-6.5 K/uL Lymphocytes # (Auto) 1.65 1.2-3.4 K/uL Monocytes # (Auto) 0.70 0.11-0.59 K/uL Eosinophils # (Auto) 0.24 0-0.5 K/uL Basophils # (Auto) 0.04 0-0.2 K/uL RDW Standard Deviation 46.4 36.4-46.3 fL RDW Coefficient of Variation 13.5 11.5-14.5 % Immature Granulocyte % (Auto) 0.2 % Immature Granulocyte # (Auto) 0.01 0.00-0.02 K/uL Phosphorus Level 2.3 2.5-4.9 mg/dl Magnesium Level 2.1 1.8-2.4 mg/dl Microbiology Results 12/12/16 Urine Culture - Final, Complete THREE TYPES OF ORGANSIMS PRESENT, ALL... Assessment & Plan 12/13/16- will continue with nonoperative mgt- NG, IV fluids add IV flagyl for c diff- with sbo , don't know how much Vanco absorbed- depending on progress- may consider CT w/ contrast tomorrow am.
[2016-12-13] MEDS ORDERED: POTASSIUM PHOSPHATE INJ 15 MMOL in SODIUM CHLORIDE 0.9% 250ML 250 ML IV ONE (09:00)
[2016-12-13] MEDS: GABAPENTIN 300 MG CAP PO SCH ×3 (09:32→21:20)
[2016-12-13] MEDS: AMANTADINE HCL 100 MG CAP PO SCH ×2 (09:33→21:21)
[2016-12-13] MEDS: ALLOPURINOL 300 MG TAB NG SCH (09:37)
[2016-12-13] MEDS: PANTOprazole INJ 40 MG in SYRINGE 0 ML IV SCH (12:06)
--- NOTE | 2016-12-13 17:42 | Progress Note ---
Medicine Progress Note Date & Time of Visit: Dec 13, 2016 at 17:42. Subjective Patient states his pain is better today. States he had a formed BM this AM and continues to pass flatus without difficulty. No overnight events noted. Still has discomfort related to the NG tube but the abdominal pain is better. He has been requesting pain medication as well. Objective Last 8 Hrs Date Time Temp Pulse Resp B/P (MAP) Pulse Ox O2 Delivery O2 Flow Rate FiO2 12/13/16 16:00 Room Air 12/13/16 15:06 151/99 (116) 12/13/16 15:05 36.6 88 20 170/103 (125) 97 Room Air Physical Exam: GENERAL: Patient is in no acute distress. NG tube present HEENT: No acute trauma, normocephalic atraumatic, mucous membranes moist, no nasal congestion, no scleral icterus. Hearing grossly intact. Conjunctivae clear. NECK: No stridor, trachea is midline. LUNGS: Clear to auscultation bilaterally, no wheeze, no rhonchi, breath sounds equal. HEART: Without murmurs gallops or rubs, regular rate and rhythm. ABDOMEN: Soft, nontender, bowel sounds hypoactive, slightly distended EXTREMITIES: No cyanosis or edema, no joint swelling, moving all 4 extremities NEUROLOGIC: Oriented x 3, no acute motor or sensory deficits, no focal weakness. SKIN: No rash, no jaundice, no diaphoresis. Laboratory Results: Last 24 Hours Test 12/13/16 05:57 White Blood Count 6.60 K/uL Red Blood Count 4.30 M/uL Hemoglobin 14.4 g/dL Hematocrit 40.5 % Mean Corpuscular Volume 94.2 fL Mean Corpuscular Hemoglobin 33.5 pg Mean Corpuscular Hemoglobin Concent 35.6 g/dl Platelet Count 145 K/uL Mean Platelet Volume 11.1 fL Neutrophils (%) (Auto) 60.0 % Lymphocytes (%) (Auto) 25.0 % Monocytes (%) (Auto) 10.6 % Eosinophils (%) (Auto) 3.6 % Basophils (%) (Auto) 0.6 % Neutrophils # (Auto) 3.96 K/uL Lymphocytes # (Auto) 1.65 K/uL Monocytes # (Auto) 0.70 K/uL Eosinophils # (Auto) 0.24 K/uL Basophils # (Auto) 0.04 K/uL RDW Standard Deviation 46.4 fL RDW Coefficient of Variation 13.5 % Immature Granulocyte % (Auto) 0.2 % Immature Granulocyte # (Auto) 0.01 K/uL Sodium Level 141 mmol/L Potassium Level 3.7 mmol/L Chloride Level 110 mmol/L Carbon Dioxide Level 25 mmol/L Anion Gap 6.0 mmol/L Blood Urea Nitrogen 21 mg/dl Creatinine 0.88 mg/dl Est Creatinine Clear Calc Drug Dose 93.4 ml/min Estimated GFR () 100.9 Estimated GFR (Non- 87.0 BUN/Creatinine Ratio 24.1 Random Glucose 91 mg/dl Calcium Level 8.0 mg/dl Phosphorus Level 2.3 mg/dl Magnesium Level 2.1 mg/dl Assessment & Plan PARTIAL SBO: -has prior hx of SBO -surgical history: cholecystectomy, prostatectomy and appendectomy -NG tube present, draining bilious gastric contents -IV fluids continued, can decrease the rate -PRN pain control and anti emetics -Surgery consulted, appreciate recs -NPO for now -meds being given via NG with clamping NG afterwards C DIFF COLITIS: -started PO vancomycin day #2 (administer via NG) -2nd lifetime occurrence -patient with diarrhea prior to SBO; could also be the cause of patients SBO -Surgery added IV flagyl -if unable to take the vanco via NG, vanco enemas can be administered LLUVIA: -likely prerenal from hypovolemia and above -Cr: 1.5 on admission; now 0.88 -continued on IV fluids -hold diuretics -avoid nephrotoxic meds POSSIBLE UTI: -has leukocytosis which could just be due to the C diff colitis -Urine sample appears contaminated; obtain culture -afebrile, asymptomatic -await culture to decide whether abx are truly needed -lactate and procalcitonin negative PARKINSONS DISEASE: -continue home meds; if unable to crush sinemet, can hold until NG tube out HTN: -continue cardizem -diuretics on hold for now; secondary to LLUVIA GOUT: -continue on allopurinol GERD: -continue PPI IV PERIPHERAL NEUROPATHY: -continue gabapentin -ok to open capsules and give this medication via NG tube Current Inpatient Medications: Current Inpatient Medications Medications (Trade) Dose Ordered Sig/Sylvia Route Start Time Stop Time Status Last Admin Dose Admin Heparin Sodium (Porcine) (Heparin Sq 5000 Unit/0.5ml) 5,000 unit Q8H SQ 12/12/16 14:00 01/11/17 13:59 12/13/16 13:54 5,000 UNIT Acetaminophen (Tylenol Tab) 650 mg Q4H PRN PO 12/12/16 06:30 01/11/17 06:29 12/12/16 18:27 650 MG Ondansetron HCl (Zofran Inj) 4 mg Q6H PRN IV 12/12/16 06:30 01/11/17 06:29 Sodium Chloride 1,000 ml @ 125 mls/hr Q8H IV 12/12/16 08:00 01/11/17 07:59 12/13/16 16:33 125 MLS/HR Morphine Sulfate (MoRPHine SULFATE INJ) 2 mg Q3H PRN IV 12/12/16 06:45 12/26/16 06:44 Pantoprazole Sodium 40 mg/ Syringe 10 ml @ 5 mls/min DAILY@11 IV 12/12/16 11:00 01/11/17 10:59 12/13/16 12:06 5 MLS/MIN Amantadine HCl (Symmetrel Cap) 100 mg BID PO 12/12/16 09:00 01/11/17 08:59 12/13/16 09:33 100 MG Diltiazem HCl (TIAzac CAP) 180 mg BID PO 12/12/16 09:00 01/11/17 08:59 Future Hold Gabapentin (Neurontin Cap) 300 mg TID PO 12/12/16 09:00 01/11/17 08:59 12/13/16 13:51 300 MG Carbidopa/Levodopa (Sinemet Cr 50/ 200MG Tab) 1 tab HS PO 12/12/16 21:00 01/11/17 20:59 12/12/16 21:31 1 TAB Carbidopa/Levodopa (Sinemet 25/ 100MG Tab) 3 tab BID@0600,1100 PO 12/12/16 07:00 01/11/17 06:59 12/13/16 12:05 3 TAB Carbidopa/Levodopa (Sinemet 25/ 100MG Tab) 2 tab DAILY@1600 PO 12/12/16 16:00 01/11/17 15:59 12/13/16 16:35 2 TAB Vancomycin HCl (Vancomycin Oral Soln) 125 mg Q6@0400,1000,1600,2200 NG 12/12/16 16:00 12/22/16 15:59 12/13/16 16:41 125 MG Allopurinol (Zyloprim Tab) 300 mg DAILY NG 12/13/16 09:00 01/11/17 08:59 12/13/16 09:37 300 MG Diltiazem HCl (Cardizem Tab) 60 mg Q6 NG 12/12/16 18:00 01/11/17 13:59 12/13/16 12:06 60 MG Metronidazole 500 mg/Prmx 100 ml @ 100 mls/hr Q8H IV 12/13/16 06:00 12/27/16 05:59 12/13/16 13:51 100 MLS/HR
[2016-12-13] MEDS: CARBIDOPA/LEVODOPA 50/200MG EXT REL TAB PO SCH (21:20)
[2016-12-14] VITALS (7 sets, daily range): BP systolic 152–175; BP diastolic 78–96; PULSE 72–81; TEMP 36.5–36.8; O2SAT 96–98
[2016-12-14] MEDS: SODIUM CHLORIDE 0.9% 1000ML 1,000 ML IV SCH ×3 (00:02→15:31)
[2016-12-14] MEDS: DILTIAZEM HCL 60 MG TAB NG SCH ×4 (00:02→17:51)
[2016-12-14] MEDS: HEPARIN SOD 5000 UNIT/0.5 ML CARP SQ SCH ×3 (05:19→21:23)
[2016-12-14] MEDS: METRONIDAZOLE / NSS 500 MG in PREMIXED NSS 100 ML IV SCH ×3 (05:21→21:24)
[2016-12-14] MEDS: VANCOMYCIN HCL 125 MG/2.5ML SOLN NG SCH ×4 (05:21→21:24)
[2016-12-14] MEDS: CARBIDOPA/LEVODOPA 25/100MG TAB PO SCH ×3 (05:22→15:31)
--- NOTE | 2016-12-14 05:40 | Surgery Progress Note ---
Surgery Progress Note Date of Service Dec 14, 2016. Subjective loose bm- passing flatus NG- clear bilious output- moderate- some ice Objective Vital Signs: Date Time Temp Pulse Resp B/P (MAP) Pulse Ox O2 Delivery O2 Flow Rate FiO2 12/14/16 05:23 81 152/92 (112) 12/13/16 23:58 Room Air 12/13/16 22:58 36.9 77 16 163/90 (114) 96 Room Air 12/13/16 22:27 76 163/91 (115) 12/13/16 21:30 172/91 (118) 12/13/16 18:32 85 165/97 (119) 12/13/16 16:00 Room Air 12/13/16 15:06 151/99 (116) 12/13/16 15:05 36.6 88 20 170/103 (125) 97 Room Air 12/13/16 08:00 Room Air 12/13/16 07:45 36.7 80 16 157/88 (111) 96 Room Air General Appearance: no apparent distress Respiratory/Chest: no respiratory distress Abdomen: + pertinent finding (some bowel sounds, mild distention) Laboratory Results: Results Past 24 Hours Test 12/13/16 05:57 12/14/16 05:11 Range/Units White Blood Count 6.60 4.8-10.8 K/uL Red Blood Count 4.30 4.7-6.1 M/uL Hemoglobin 14.4 14.0-18.0 g/dL Hematocrit 40.5 42-52 % Mean Corpuscular Volume 94.2 80-100 fL Mean Corpuscular Hemoglobin 33.5 25-34 pg Mean Corpuscular Hemoglobin Concent 35.6 32-36 g/dl Platelet Count 145 130-400 K/uL Mean Platelet Volume 11.1 7.4-10.4 fL Neutrophils (%) (Auto) 60.0 % Lymphocytes (%) (Auto) 25.0 % Monocytes (%) (Auto) 10.6 % Eosinophils (%) (Auto) 3.6 % Basophils (%) (Auto) 0.6 % Neutrophils # (Auto) 3.96 1.4-6.5 K/uL Lymphocytes # (Auto) 1.65 1.2-3.4 K/uL Monocytes # (Auto) 0.70 0.11-0.59 K/uL Eosinophils # (Auto) 0.24 0-0.5 K/uL Basophils # (Auto) 0.04 0-0.2 K/uL RDW Standard Deviation 46.4 36.4-46.3 fL RDW Coefficient of Variation 13.5 11.5-14.5 % Immature Granulocyte % (Auto) 0.2 % Immature Granulocyte # (Auto) 0.01 0.00-0.02 K/uL Sodium Level 141 136-145 mmol/L Potassium Level 3.7 3.5-5.1 mmol/L Chloride Level 110 98-107 mmol/L Carbon Dioxide Level 25 21-32 mmol/L Anion Gap 6.0 3-11 mmol/L Blood Urea Nitrogen 21 7-18 mg/dl Creatinine 0.88 0.60-1.40 mg/dl Est Creatinine Clear Calc Drug Dose 93.4 ml/min Estimated GFR () 100.9 Estimated GFR (Non- 87.0 BUN/Creatinine Ratio 24.1 10-20 Random Glucose 91 70-99 mg/dl Calcium Level 8.0 8.5-10.1 mg/dl Phosphorus Level 2.3 2.5-4.9 mg/dl Magnesium Level 2.1 1.8-2.4 mg/dl Assessment & Plan 12/14/16- diarrhea/ c diff- on vanco per NG and flagyl IV will check CT w/ contrast via NG to assess transit. consider [facility] eval to help with c diff mgt 12/13/16- will continue with nonoperative mgt- NG, IV fluids add IV flagyl for c diff- with sbo , don't know how much Vanco absorbed- depending on progress- may consider CT w/ contrast tomorrow am. 12/13/16- will continue with nonoperative mgt- NG, IV fluids add IV flagyl for c diff- with sbo , don't know how much Vanco absorbed- depending on progress- may consider CT w/ contrast tomorrow am.
[2016-12-14 06:25] LABS: BASO % 0.7 %; BASO ABS # 0.04 K/uL (0-0.2); COMPLETE YES; EOS % 3.4 %; HEMATOCRIT 38.9 % (42-52); IG% 0.2 %; LYMPH % 24.5 %; LYMPH ABS # 1.49 K/uL (1.2-3.4); MEAN CELL VOLUME 93.5 fL (80-100); MEAN CORPUSCULAR HEMOGLOBIN 32.2 pg (25-34); MEAN CORPUSCULAR HGB CONC 34.4 g/dl (32-36); MEAN PLATELET VOLUME 11.4 fL (7.4-10.4); NEUT % 61.2 %; PLATELET COUNT 143 K/uL (130-400); RED BLOOD COUNT 4.16 M/uL (4.7-6.1); WHITE BLOOD COUNT 6.09 K/uL (4.8-10.8)
[2016-12-14] MEDS ORDERED: OPTIRAY 320 IV PRN (06:45)
[2016-12-14 06:57] LABS: BUN/CREATININE RATIO 16.8 (10-20); CALCIUM 8.2 mg/dl (8.5-10.1); CREATININE 0.73 mg/dl (0.60-1.40); MAGNESIUM 1.8 mg/dl (1.8-2.4); POTASSIUM 3.6 mmol/L (3.5-5.1)
[2016-12-14] MEDS: AMANTADINE HCL 100 MG CAP PO SCH ×2 (09:40→21:20)
[2016-12-14] MEDS: GABAPENTIN 300 MG CAP PO SCH ×3 (09:40→21:21)
[2016-12-14] MEDS: ALLOPURINOL 300 MG TAB NG SCH (09:40)
--- NOTE | 2016-12-14 09:46 | DIAGNOSTIC IMAGING REPORT ---
ABDOMEN AND PELVIS CT WITH IV AND ORAL CONTRAST CT DOSE: 828.57 mGy.cm HISTORY: Abnormal abdominal series. Small bowel obstruction. Nausea. Vomiting. r/o sbo, contrast via NG, this am please TECHNIQUE: Multiaxial CT images of the abdomen and pelvis were performed following the use of intravenous and oral contrast. A dose lowering technique was utilized adhering to the principles of ALARA. COMPARISON STUDY: Abdomen and pelvis CT 07/18/2014. FINDINGS: Bibasilar linear densities consistent with subsegmental atelectasis. No pneumoperitoneum. No pneumatosis. Nasogastric tube terminates in the stomach. Tiny diverticulum at the second portion of the duodenum. Multiple distended loops of mid to distal small bowel within the abdomen. These measure up to 4.2 cm in diameter. The distal ileal loops within the right lower quadrant are decompressed. However, contrast extends through the distal ileal loops and into the colon. Therefore, these findings favor a partial small bowel obstruction. Possible transition point seen within the right lower quadrant on image 350. Bladder is mildly thickened. Trace fluid within the right lower quadrant. The prostate gland is surgically absent. Trace fluid within the deep pelvis. Extensive colonic diverticulosis. No bowel wall thickening. Mild hepatic steatosis. Cholecystectomy. The spleen, adrenal glands, and pancreas are unremarkable. Stable bilateral renal hypodense lesions. These likely represent cysts. No hydronephrosis. IMPRESSION: 1. Above findings consistent with a partial small bowel obstruction. There may be a transition point within the right lower quadrant within the distal ileum as described above. 2. Mild bladder wall thickening. Recommend correlation with urinalysis to exclude a cystitis. 3. Trace pelvic free fluid. 4. Colonic diverticulosis. 5. Nasogastric tube terminates in the stomach. 6. Additional findings as described above. Electronically signed by: Erick Nina M.D. 12/14/2016 9:44 AM Dictated Date/Time: 12/14/2016 8:59 AM
[2016-12-14] MEDS: PANTOprazole INJ 40 MG in SYRINGE 0 ML IV SCH (11:44)
--- NOTE | 2016-12-14 17:47 | Progress Note ---
Medicine Progress Note Date & Time of Visit: Dec 14, 2016 at 17:47. Subjective Patient complains of some residual abdominal pain, but most of his discomfort is directed at the NG tube. He also states he developed frequent watery diarrhea last night and it has continued today. Has been sitting with NG tube clamped and no reports of nausea or worsening pain. No other overnight events noted. Objective Last 8 Hrs Date Time Temp Pulse Resp B/P (MAP) Pulse Ox O2 Delivery O2 Flow Rate FiO2 12/14/16 15:30 Room Air 12/14/16 15:04 36.6 73 18 165/89 (114) 97 Room Air 12/14/16 12:38 167/78 (107) Physical Exam: GENERAL: Patient is in no acute distress. NG tube present HEENT: No acute trauma, normocephalic atraumatic, mucous membranes moist, no nasal congestion, no scleral icterus. Hearing grossly intact. Conjunctivae clear. NECK: No stridor, trachea is midline. LUNGS: Clear to auscultation bilaterally, no wheeze, no rhonchi, breath sounds equal. HEART: Without murmurs gallops or rubs, regular rate and rhythm. ABDOMEN: Soft, nontender, bowel sounds hypoactive, slightly distended EXTREMITIES: No cyanosis or edema, no joint swelling, moving all 4 extremities NEUROLOGIC: Oriented x 3, no acute motor or sensory deficits, no focal weakness. SKIN: No rash, no jaundice, no diaphoresis. Laboratory Results: Last 24 Hours Test 12/14/16 05:11 White Blood Count 6.09 K/uL Red Blood Count 4.16 M/uL Hemoglobin 13.4 g/dL Hematocrit 38.9 % Mean Corpuscular Volume 93.5 fL Mean Corpuscular Hemoglobin 32.2 pg Mean Corpuscular Hemoglobin Concent 34.4 g/dl Platelet Count 143 K/uL Mean Platelet Volume 11.4 fL Neutrophils (%) (Auto) 61.2 % Lymphocytes (%) (Auto) 24.5 % Monocytes (%) (Auto) 10.0 % Eosinophils (%) (Auto) 3.4 % Basophils (%) (Auto) 0.7 % Neutrophils # (Auto) 3.73 K/uL Lymphocytes # (Auto) 1.49 K/uL Monocytes # (Auto) 0.61 K/uL Eosinophils # (Auto) 0.21 K/uL Basophils # (Auto) 0.04 K/uL RDW Standard Deviation 45.2 fL RDW Coefficient of Variation 13.1 % Immature Granulocyte % (Auto) 0.2 % Immature Granulocyte # (Auto) 0.01 K/uL Sodium Level 140 mmol/L Potassium Level 3.6 mmol/L Chloride Level 108 mmol/L Carbon Dioxide Level 23 mmol/L Anion Gap 9.0 mmol/L Blood Urea Nitrogen 12 mg/dl Creatinine 0.73 mg/dl Est Creatinine Clear Calc Drug Dose 112.5 ml/min Estimated GFR () 108.9 Estimated GFR (Non- 94.0 BUN/Creatinine Ratio 16.8 Random Glucose 73 mg/dl Calcium Level 8.2 mg/dl Magnesium Level 1.8 mg/dl Assessment & Plan PARTIAL SBO: -has prior hx of SBO -surgical history: cholecystectomy, prostatectomy and appendectomy -NG tube present, draining bilious gastric contents -IV fluids continued, can decrease the rate -PRN pain control and anti emetics -Surgery consulted, appreciate recs -NPO for now except meds and ice chips -meds being given via NG with clamping NG afterwards -CT scan results show some contrast distal to the point of obstruction but still showing signs of a partial small bowel obstruction C DIFF COLITIS: -started PO vancomycin day #3 (administered via NG) -2nd lifetime occurrence -patient with diarrhea prior to SBO, now again has started with diarrhea even before barium contrast was given -Surgery added IV flagyl -if unable to take the vanco via NG, vanco enemas can be administered -GI consulted per Surgery LLUVIA: -likely prerenal from hypovolemia and above -Cr: 1.5 on admission; now 0.73 -continued on IV fluids, will decrease rate -hold diuretics -avoid nephrotoxic meds POSSIBLE UTI: -has leukocytosis which could just be due to the C diff colitis -Urine sample appears contaminated; obtain culture -afebrile, asymptomatic -await culture to decide whether abx are truly needed -lactate and procalcitonin negative PARKINSONS DISEASE: -continue home meds; if unable to crush sinemet, can hold until NG tube out HTN: -continue cardizem -diuretics on hold for now; secondary to LLUVIA GOUT: -continue on allopurinol GERD: -continue PPI IV PERIPHERAL NEUROPATHY: -continue gabapentin -ok to open capsules and give this medication via NG tube Current Inpatient Medications: Current Inpatient Medications Medications (Trade) Dose Ordered Sig/Sylvia Route Start Time Stop Time Status Last Admin Dose Admin Heparin Sodium (Porcine) (Heparin Sq 5000 Unit/0.5ml) 5,000 unit Q8H SQ 12/12/16 14:00 01/11/17 13:59 12/13/16 21:23 5,000 UNIT Acetaminophen (Tylenol Tab) 650 mg Q4H PRN PO 12/12/16 06:30 01/11/17 06:29 12/12/16 18:27 650 MG Ondansetron HCl (Zofran Inj) 4 mg Q6H PRN IV 12/12/16 06:30 01/11/17 06:29 Sodium Chloride 1,000 ml @ 125 mls/hr Q8H IV 12/12/16 08:00 01/11/17 07:59 12/14/16 15:31 125 MLS/HR Morphine Sulfate (MoRPHine SULFATE INJ) 2 mg Q3H PRN IV 12/12/16 06:45 12/26/16 06:44 Pantoprazole Sodium 40 mg/ Syringe 10 ml @ 5 mls/min DAILY@11 IV 12/12/16 11:00 01/11/17 10:59 12/14/16 11:44 5 MLS/MIN Amantadine HCl (Symmetrel Cap) 100 mg BID PO 12/12/16 09:00 01/11/17 08:59 12/14/16 09:40 100 MG Diltiazem HCl (TIAzac CAP) 180 mg BID PO 12/12/16 09:00 01/11/17 08:59 Future Hold Gabapentin (Neurontin Cap) 300 mg TID PO 12/12/16 09:00 01/11/17 08:59 12/14/16 13:32 300 MG Carbidopa/Levodopa (Sinemet Cr 50/ 200MG Tab) 1 tab HS PO 12/12/16 21:00 01/11/17 20:59 12/13/16 21:20 1 TAB Carbidopa/Levodopa (Sinemet 25/ 100MG Tab) 3 tab BID@0600,1100 PO 12/12/16 07:00 01/11/17 06:59 12/14/16 11:44 3 TAB Carbidopa/Levodopa (Sinemet 25/ 100MG Tab) 2 tab DAILY@1600 PO 12/12/16 16:00 01/11/17 15:59 12/14/16 15:31 2 TAB Vancomycin HCl (Vancomycin Oral Soln) 125 mg Q6@0400,1000,1600,2200 NG 12/12/16 16:00 12/22/16 15:59 12/14/16 15:31 125 MG Allopurinol (Zyloprim Tab) 300 mg DAILY NG 12/13/16 09:00 01/11/17 08:59 12/14/16 09:40 300 MG Diltiazem HCl (Cardizem Tab) 60 mg Q6 NG 12/12/16 18:00 01/11/17 13:59 12/14/16 11:44 60 MG Metronidazole 500 mg/Prmx 100 ml @ 100 mls/hr Q8H IV 12/13/16 06:00 12/27/16 05:59 12/14/16 13:32 100 MLS/HR Ioversol (Optiray 320) 100 ml UD PRN IV 12/14/16 06:45 12/18/16 06:44
[2016-12-14] MEDS: CARBIDOPA/LEVODOPA 50/200MG EXT REL TAB PO SCH (21:21)
[2016-12-15] MEDS: VANCOMYCIN HCL 125 MG/2.5ML SOLN NG SCH ×3 (03:58→16:11)
[2016-12-15 04:00] VITALS: BP 164/83
--- NOTE | 2016-12-15 05:15 | Surgery Progress Note ---
Surgery Progress Note Date of Service Dec 15, 2016. Subjective loose bowel movements CT- showed mildly dilated small bowel- contrast went into colon relatively quickly NG clamped- chun well- minimal output Objective Vital Signs: Date Time Temp Pulse Resp B/P (MAP) Pulse Ox O2 Delivery O2 Flow Rate FiO2 12/14/16 23:55 Room Air 12/14/16 23:24 36.5 74 16 171/92 (118) 96 Room Air 12/14/16 19:24 76 163/83 (109) 12/14/16 17:45 79 169/96 (120) 12/14/16 15:30 Room Air 12/14/16 15:04 36.6 73 18 165/89 (114) 97 Room Air 12/14/16 12:38 167/78 (107) 12/14/16 08:00 Room Air 12/14/16 07:15 36.8 72 18 175/84 (114) 98 Room Air 12/14/16 05:23 81 152/92 (112) General Appearance: no apparent distress Respiratory/Chest: no respiratory distress Abdomen: soft Laboratory Results: Results Past 24 Hours Test 12/15/16 04:44 Range/Units Assessment & Plan 12/15/16- will d/c NG and try liquids- If he fails trial of po- will need abd exploration- likely adhesions- also will ask [facility] to see re- recurrent c diff 12/14/16- diarrhea/ c diff- on vanco per NG and flagyl IV will check CT w/ contrast via NG to assess transit. consider [facility] eval to help with c diff mgt 12/13/16- will continue with nonoperative mgt- NG, IV fluids add IV flagyl for c diff- with sbo , don't know how much Vanco absorbed- depending on progress- may consider CT w/ contrast tomorrow am. 12/14/16- diarrhea/ c diff- on vanco per NG and flagyl IV will check CT w/ contrast via NG to assess transit. consider [facility] eval to help with c diff mgt 12/13/16- will continue with nonoperative mgt- NG, IV fluids add IV flagyl for c diff- with sbo , don't know how much Vanco absorbed- depending on progress- may consider CT w/ contrast tomorrow am.
[2016-12-15] MEDS: METRONIDAZOLE / NSS 500 MG in PREMIXED NSS 100 ML IV SCH ×3 (05:24→21:43)
[2016-12-15] MEDS: DILTIAZEM HCL 60 MG TAB NG SCH ×4 (05:25→18:40)
[2016-12-15] MEDS: CARBIDOPA/LEVODOPA 25/100MG TAB PO SCH ×3 (05:26→16:12)
[2016-12-15] MEDS: HEPARIN SOD 5000 UNIT/0.5 ML CARP SQ SCH ×3 (05:26→21:42)
[2016-12-15 06:10] LABS: HEMATOCRIT 39.4 % (42-52); MEAN CELL VOLUME 92.5 fL (80-100); MEAN CORPUSCULAR HEMOGLOBIN 34.3 pg (25-34); MEAN CORPUSCULAR HGB CONC 37.1 g/dl (32-36); MEAN PLATELET VOLUME 11.4 fL (7.4-10.4); PLATELET COUNT 144 K/uL (130-400); RED BLOOD COUNT 4.26 M/uL (4.7-6.1); WHITE BLOOD COUNT 5.77 K/uL (4.8-10.8)
[2016-12-15 06:48] LABS: BUN/CREATININE RATIO 10.5 (10-20); CALCIUM 8.2 mg/dl (8.5-10.1); CREATININE 0.76 mg/dl (0.60-1.40); MAGNESIUM 1.8 mg/dl (1.8-2.4); POTASSIUM 3.6 mmol/L (3.5-5.1)
[2016-12-15 07:25] VITALS: BP 167/83; PULSE 79; TEMP 36.8; O2SAT 95
[2016-12-15] MEDS: ALLOPURINOL 300 MG TAB NG SCH (08:15)
[2016-12-15] MEDS: SODIUM CHLORIDE 0.9% 1000ML 1,000 ML IV SCH ×3 (08:15→20:19)
[2016-12-15] MEDS: GABAPENTIN 300 MG CAP PO SCH ×3 (08:16→20:25)
[2016-12-15] MEDS: AMANTADINE HCL 100 MG CAP PO SCH ×2 (08:16→20:25)
[2016-12-15] MEDS: AMLODIPINE BESYLATE 5 MG TAB NG SCH (09:34)
[2016-12-15] MEDS: PANTOprazole INJ 40 MG in SYRINGE 0 ML IV SCH (12:19)
--- NOTE | 2016-12-15 12:22 | Gastrointestinal Consultation ---
Gastrointestinal Consultation Date of Consultation: Dec 15, 2016 Attending Physician: Dr. Priest Consulting Physician: Dr. Higginbotham Reason for Consultation: C-diff History of Present Illness Patient is a 71 year old male patient of MACARIO Dc who presented to [facility] on 12/12 for abdominal pain. GI is consulted for management of C-diff in partial SBO. The patient reports that he experienced about 1 1/2 days of "constipation," w/o a BM and with a large abdomin, stating that his " though he was ." This occurred prior to admission. While here, he developed diarrhea, up to 10 liquid BMs, occurring approx hourly through the night on Thursday night. Yesterday, treatment was started with IV Flagyl and Vanco po. Today, he is much improved, having passed just 2 BMs, both small and liquid since bedtime last night. His abdominal distention is also much improved. The pt has not had any blood in stools, nausea or vomiting. He is tolerating a full liquid diet. Dr. Logan is following for PSBO. Past Medical/Surgical History Medical Problems: (1) Lower extremity edema Status: Acute (2) Partial small bowel obstruction Status: Acute Past Medical History: 1. Parkinsons 2. HTN 3. Gout 4. GERD 5. Peripheral Neuropathy (pt suspects this is an effect of agent orange) 6. C-diff about 8 yrs ago Past Surgical History: 1. Appendectomy 2. Cholecystectomy 3. Prostatectomy 4. Knee surgery Family History Diabetes mellitus Social History Smoking Status: Never Smoker Alcohol Use: occasionally Drug Use: none Marital Status: Housing Status: lives with family Occupation Status: retired Allergies Coded Allergies: No Known Allergies (Verified , 12/12/16) Current Medications Home Meds and Scripts Medications Dose Route/Sig Max Daily Dose Days Date Category Sinemet Cr 50-200 mg (Carbidopa-Levodopa) 1 Tab Tab 1 Tab PO HS 12/12/16 Reported Sinemet 25MG/100MG (Carbidopa/Levodopa) Tab 2 Tabs DAILY AT 1600 12/12/16 Reported Neurontin (Gabapentin) 300 Mg Cap 300 Mg PO TID 12/12/16 Reported Amantadine Hcl (Amantadine HCl) 100 Mg Cap 100 Mg PO BID 03/20/16 Reported Klor-Con (Potassium Chloride) 20 Meq Tabcr 20 Meq PO BID 03/20/16 Reported Crestor (Rosuvastatin Calcium) 20 Mg Tab 20 Mg PO DAILY 03/20/16 Reported Sinemet 25MG/100MG (Carbidopa/Levodopa) Tab 3 Tabs PO BID AT 0600 & 1100 03/20/16 Reported Allopurinol 300 Mg Tab 300 Mg PO DAILY 03/20/16 Reported Prilosec (Omeprazole) 20 Mg Capcr 20 Mg PO DAILY 07/18/14 Reported Lasix (Furosemide) 20 Mg Tab 20 Mg PO DAILY 07/18/14 Reported Lipitor (Atorvastatin Calcium) 80 Mg Tab 40 Mg PO DAILY 07/18/14 Reported Aldactone (Spironolactone) 25 Mg Tab 25 Mg PO DAILY 07/18/14 Reported Fish Oil + D3 (Fish Oil-Cholecalciferol) 1 Cap Cap 1 Cap PO DAILY 06/04/13 Reported Tiazac (Diltiazem Hcl) 180 Mg Cap 180 Mg PO BID 06/04/13 Reported Multivitamin (Multivitamins) Tab 1 Tab PO DAILY 01/29/08 Reported Review of Systems Constitutional: No fever, No chills, No sweats, No weight loss, No weakness Eyes: No eye pain, No redness ENT: No sore throat, No trouble swallowing, No pain on swallowing Respiratory: No cough, No wheezing, No shortness of breath, No dyspnea on exertion Cardiac: No chest pain, No edema, No palpitations Abdomen: + see HPI Neuro: No memory loss, No weakness, No numbness/tingling, No vertigo, No balance problems Psych: No depression symptoms, No anxiety, No insomnia Heme: No abnormal bleeding/bruising, No night sweats Endo: No excessive thirst, No excessive urination Skin: No rash, No itch, No new/changing skin lesions, No jaundice Physical Exam Date Time Temp Pulse Resp B/P (MAP) Pulse Ox O2 Delivery O2 Flow Rate FiO2 12/15/16 08:00 Room Air 12/15/16 07:25 36.8 79 17 167/83 (111) 95 Room Air 12/15/16 04:00 164/83 (110) 12/14/16 23:55 Room Air 12/14/16 23:24 36.5 74 16 171/92 (118) 96 Room Air 12/14/16 19:24 76 163/83 (109) 12/14/16 17:45 79 169/96 (120) 12/14/16 15:30 Room Air 12/14/16 15:04 36.6 73 18 165/89 (114) 97 Room Air 12/14/16 12:38 167/78 (107) General Appearance: no apparent distress Eyes: normal inspection, EOMI Neck: supple, no adenopathy, thyroid normal Respiratory/Chest: chest non-tender, lungs clear, normal breath sounds, no accessory muscle use Cardiovascular: regular rate, rhythm, no JVD, no murmur Abdomen: normal bowel sounds, no organomegaly, + tenderness (mild diffuse abdominal tenderness and mild distention) Extremities: normal inspection, no pedal edema, normal capillary refill Neurologic/Psych: alert, normal mood/affect, oriented x 3 Skin: normal color, no jaundice, warm/dry, no rash Laboratory Results Last 24 Hours Test 12/15/16 05:34 White Blood Count 5.77 K/uL Red Blood Count 4.26 M/uL Hemoglobin 14.6 g/dL Hematocrit 39.4 % Mean Corpuscular Volume 92.5 fL Mean Corpuscular Hemoglobin 34.3 pg Mean Corpuscular Hemoglobin Concent 37.1 g/dl RDW Standard Deviation 43.7 fL RDW Coefficient of Variation 12.9 % Platelet Count 144 K/uL Mean Platelet Volume 11.4 fL Sodium Level 138 mmol/L Potassium Level 3.6 mmol/L Chloride Level 107 mmol/L Carbon Dioxide Level 21 mmol/L Anion Gap 11.0 mmol/L Blood Urea Nitrogen 8 mg/dl Creatinine 0.76 mg/dl Est Creatinine Clear Calc Drug Dose 108.1 ml/min Estimated GFR () 107.1 Estimated GFR (Non- 92.4 BUN/Creatinine Ratio 10.5 Random Glucose 72 mg/dl Calcium Level 8.2 mg/dl Magnesium Level 1.8 mg/dl Impression Patient is a 71 year old male with a partial SBO and C-diff diarrhea. C-diff diarrhea is improving on IV Flagyl and po Vancomycin. Plan 1. Tomorrow may stop the Flagyl and continue treating with po Vancomycin 125mg QID x total 10 days. 2. May continue full liquid diet. 3. Reviewed surgery plan and appreciate input. 4. If due for surveillance colonoscopy 5. Will continue to follow. I have seen, examined, and agree with the plan as outlined by MACARIO Zapata. -Improved -Continue oral vancomycin -Plan for outpatient colonoscopy -Continue symptomatic care
[2016-12-15 15:09] VITALS: BP 169/101; PULSE 82; TEMP 36.6; O2SAT 97
[2016-12-15 16:15] VITALS: O2SAT 100
[2016-12-15 16:23] VITALS: BP 162/90; PULSE 78; O2SAT 100
--- NOTE | 2016-12-15 18:52 | Progress Note ---
Medicine Progress Note Date & Time of Visit: Dec 15, 2016 at 18:50. Subjective Patient is doing well, he is tolerating a full liquid diet without any difficulty. No overnight events noted. Patient is still having diarrhea but is less frequent than yesterday. No other complaints at this time. Objective Last 8 Hrs Date Time Temp Pulse Resp B/P (MAP) Pulse Ox O2 Delivery O2 Flow Rate FiO2 12/15/16 16:23 78 162/90 (114) 100 Room Air 12/15/16 16:15 100 Room Air 12/15/16 15:09 36.6 82 18 169/101 (123) 97 Room Air Physical Exam: GENERAL: Patient is in no acute distress. HEENT: No acute trauma, normocephalic atraumatic, mucous membranes moist, no nasal congestion, no scleral icterus. Hearing grossly intact. Conjunctivae clear. NECK: No stridor, trachea is midline. LUNGS: Clear to auscultation bilaterally, no wheeze, no rhonchi, breath sounds equal. HEART: Without murmurs gallops or rubs, regular rate and rhythm. ABDOMEN: Soft, nontender, bowel sounds present, slightly distended EXTREMITIES: No cyanosis or edema, no joint swelling, moving all 4 extremities NEUROLOGIC: Oriented x 3, no acute motor or sensory deficits, no focal weakness. SKIN: No rash, no jaundice, no diaphoresis. Laboratory Results: Last 24 Hours Test 12/15/16 05:34 White Blood Count 5.77 K/uL Red Blood Count 4.26 M/uL Hemoglobin 14.6 g/dL Hematocrit 39.4 % Mean Corpuscular Volume 92.5 fL Mean Corpuscular Hemoglobin 34.3 pg Mean Corpuscular Hemoglobin Concent 37.1 g/dl RDW Standard Deviation 43.7 fL RDW Coefficient of Variation 12.9 % Platelet Count 144 K/uL Mean Platelet Volume 11.4 fL Sodium Level 138 mmol/L Potassium Level 3.6 mmol/L Chloride Level 107 mmol/L Carbon Dioxide Level 21 mmol/L Anion Gap 11.0 mmol/L Blood Urea Nitrogen 8 mg/dl Creatinine 0.76 mg/dl Est Creatinine Clear Calc Drug Dose 108.1 ml/min Estimated GFR () 107.1 Estimated GFR (Non- 92.4 BUN/Creatinine Ratio 10.5 Random Glucose 72 mg/dl Calcium Level 8.2 mg/dl Magnesium Level 1.8 mg/dl Assessment & Plan PARTIAL SBO: -has prior hx of SBO -surgical history: cholecystectomy, prostatectomy and appendectomy -NG tube removed -IV fluids continued, can decrease the rate -PRN pain control and anti emetics -Surgery consulted, appreciate recs -NPO initially, now on full liquids -CT scan 12/14 results show some contrast distal to the point of obstruction but still showing signs of a partial small bowel obstruction C DIFF COLITIS: -started PO vancomycin day #4 (administered via NG) -2nd lifetime occurrence -patient with diarrhea prior to SBO, now again has started with diarrhea even before barium contrast was given -Surgery added IV flagyl -if unable to take the vanco via NG, vanco enemas can be administered -GI consulted per Surgery LLUVIA: -likely prerenal from hypovolemia and above -Cr: 1.5 on admission; now resolved and stable -continued on IV fluids, will decrease rate, can d/c today now that taking PO -hold diuretics -avoid nephrotoxic meds PARKINSONS DISEASE: -continue home meds; if unable to crush sinemet, can hold until NG tube out; resume today as taking PO HTN: -continue cardizem, will need to transition back to cardizem ER -diuretics on hold for now; secondary to LLUVIA GOUT: -continue on allopurinol GERD: -continue PPI IV PERIPHERAL NEUROPATHY: -continue gabapentin -ok to open capsules and give this medication via NG tube Current Inpatient Medications: Current Inpatient Medications Medications (Trade) Dose Ordered Sig/Sylvia Route Start Time Stop Time Status Last Admin Dose Admin Heparin Sodium (Porcine) (Heparin Sq 5000 Unit/0.5ml) 5,000 unit Q8H SQ 12/12/16 14:00 01/11/17 13:59 12/13/16 21:23 5,000 UNIT Acetaminophen (Tylenol Tab) 650 mg Q4H PRN PO 12/12/16 06:30 01/11/17 06:29 12/12/16 18:27 650 MG Ondansetron HCl (Zofran Inj) 4 mg Q6H PRN IV 12/12/16 06:30 01/11/17 06:29 Sodium Chloride 1,000 ml @ 80 mls/hr [id number] IV 12/12/16 08:00 01/11/17 07:59 12/15/16 08:15 125 MLS/HR Morphine Sulfate (MoRPHine SULFATE INJ) 2 mg Q3H PRN IV 12/12/16 06:45 12/26/16 06:44 Amantadine HCl (Symmetrel Cap) 100 mg BID PO 12/12/16 09:00 01/11/17 08:59 12/15/16 08:16 100 MG Diltiazem HCl (TIAzac CAP) 180 mg BID PO 12/12/16 09:00 01/11/17 08:59 Future Hold Gabapentin (Neurontin Cap) 300 mg TID PO 12/12/16 09:00 01/11/17 08:59 12/15/16 14:01 300 MG Carbidopa/Levodopa (Sinemet Cr 50/ 200MG Tab) 1 tab HS PO 12/12/16 21:00 01/11/17 20:59 12/14/16 21:21 1 TAB Carbidopa/Levodopa (Sinemet 25/ 100MG Tab) 3 tab BID@0600,1100 PO 12/12/16 07:00 01/11/17 06:59 12/15/16 12:19 3 TAB Carbidopa/Levodopa (Sinemet 25/ 100MG Tab) 2 tab DAILY@1600 PO 12/12/16 16:00 01/11/17 15:59 12/15/16 16:12 2 TAB Vancomycin HCl (Vancomycin Oral Soln) 125 mg Q6@0400,1000,1600,2200 NG 12/12/16 16:00 12/22/16 15:59 12/15/16 16:11 125 MG Allopurinol (Zyloprim Tab) 300 mg DAILY NG 12/13/16 09:00 01/11/17 08:59 12/15/16 08:15 300 MG Diltiazem HCl (Cardizem Tab) 60 mg Q6 NG 12/12/16 18:00 01/11/17 13:59 12/15/16 18:40 60 MG Metronidazole 500 mg/Prmx 100 ml @ 100 mls/hr Q8H IV 12/13/16 06:00 12/27/16 05:59 12/15/16 14:06 100 MLS/HR Ioversol (Optiray 320) 100 ml UD PRN IV 12/14/16 06:45 12/18/16 06:44 Amlodipine Besylate (Norvasc Tab) 5 mg QAM NG 12/15/16 09:00 01/14/17 08:59 12/15/16 09:34 5 MG Pantoprazole Sodium (Protonix Tab) 40 mg QAM PO 12/16/16 09:00 01/15/17 08:59
[2016-12-15] MEDS ORDERED: NURSING DECISION MEDICATION ORDER SCH (20:00)
[2016-12-15] MEDS: CARBIDOPA/LEVODOPA 50/200MG EXT REL TAB PO SCH (20:25)
[2016-12-15] MEDS: VANCOMYCIN HCL 125 MG/2.5ML SOLN PO SCH (21:43)
[2016-12-15] MEDS: RASPBERRY SYRUP 5 ML UDP PO SCH (21:43)
[2016-12-15 23:25] VITALS: BP 157/89; PULSE 63; TEMP 36.7; O2SAT 96
[2016-12-16] MEDS: DILTIAZEM HCL 60 MG TAB NG SCH ×5 (00:11→23:41)
[2016-12-16] MEDS: RASPBERRY SYRUP 5 ML UDP PO SCH ×4 (04:24→21:00)
[2016-12-16] MEDS: VANCOMYCIN HCL 125 MG/2.5ML SOLN PO SCH ×4 (04:24→21:00)
[2016-12-16 05:51] LABS: HEMATOCRIT 39.3 % (42-52); MEAN CORPUSCULAR HEMOGLOBIN 32.6 pg (25-34); MEAN CORPUSCULAR HGB CONC 35.4 g/dl (32-36); MEAN PLATELET VOLUME 10.6 fL (7.4-10.4); PLATELET COUNT 166 K/uL (130-400); RED BLOOD COUNT 4.27 M/uL (4.7-6.1); WHITE BLOOD COUNT 4.52 K/uL (4.8-10.8)
[2016-12-16] MEDS: HEPARIN SOD 5000 UNIT/0.5 ML CARP SQ SCH ×3 (06:00→20:59)
[2016-12-16 06:12] VITALS: BP 168/91; PULSE 74
[2016-12-16] MEDS: CARBIDOPA/LEVODOPA 25/100MG TAB PO SCH ×3 (06:14→16:28)
[2016-12-16 06:16] LABS: BUN/CREATININE RATIO 7.5 (10-20); CALCIUM 7.9 mg/dl (8.5-10.1); CREATININE 0.76 mg/dl (0.60-1.40); MAGNESIUM 1.8 mg/dl (1.8-2.4); POTASSIUM 3.4 mmol/L (3.5-5.1)
--- NOTE | 2016-12-16 06:51 | Surgery Progress Note ---
Surgery Progress Note Date of Service Dec 16, 2016. Subjective " rumbling" in abd tolerating full liq Objective Vital Signs: Date Time Temp Pulse Resp B/P (MAP) Pulse Ox O2 Delivery O2 Flow Rate FiO2 12/16/16 06:12 74 168/91 (116) 12/16/16 00:15 Room Air 12/15/16 23:25 36.7 63 22 157/89 (111) 96 Room Air 12/15/16 16:23 78 162/90 (114) 100 Room Air 12/15/16 16:15 100 Room Air 12/15/16 15:09 36.6 82 18 169/101 (123) 97 Room Air 12/15/16 08:00 Room Air 12/15/16 07:25 36.8 79 17 167/83 (111) 95 Room Air General Appearance: no apparent distress Respiratory/Chest: no respiratory distress Abdomen: normal bowel sounds, soft Laboratory Results: Results Past 24 Hours Test 12/16/16 05:25 Range/Units White Blood Count 4.52 4.8-10.8 K/uL Red Blood Count 4.27 4.7-6.1 M/uL Hemoglobin 13.9 14.0-18.0 g/dL Hematocrit 39.3 42-52 % Mean Corpuscular Volume 92.0 80-100 fL Mean Corpuscular Hemoglobin 32.6 25-34 pg Mean Corpuscular Hemoglobin Concent 35.4 32-36 g/dl RDW Standard Deviation 43.7 36.4-46.3 fL RDW Coefficient of Variation 13.2 11.5-14.5 % Platelet Count 166 130-400 K/uL Mean Platelet Volume 10.6 7.4-10.4 fL Sodium Level 142 136-145 mmol/L Potassium Level 3.4 3.5-5.1 mmol/L Chloride Level 108 98-107 mmol/L Carbon Dioxide Level 24 21-32 mmol/L Anion Gap 10.0 3-11 mmol/L Blood Urea Nitrogen 6 7-18 mg/dl Creatinine 0.76 0.60-1.40 mg/dl Est Creatinine Clear Calc Drug Dose 108.1 ml/min Estimated GFR () 107.1 Estimated GFR (Non- 92.4 BUN/Creatinine Ratio 7.5 10-20 Random Glucose 102 70-99 mg/dl Calcium Level 7.9 8.5-10.1 mg/dl Magnesium Level 1.8 1.8-2.4 mg/dl Assessment & Plan 12/16/16- still some concern with adhesions but c diff likely exacerbated situation- try low fiber diet 12/15/16- will d/c NG and try liquids- If he fails trial of po- will need abd exploration- likely adhesions- also will ask [facility] to see re- recurrent c diff 12/14/16- diarrhea/ c diff- on vanco per NG and flagyl IV will check CT w/ contrast via NG to assess transit. consider [facility] eval to help with c diff mgt 12/13/16- will continue with nonoperative mgt- NG, IV fluids add IV flagyl for c diff- with sbo , don't know how much Vanco absorbed- depending on progress- may consider CT w/ contrast tomorrow am. 12/15/16- will d/c NG and try liquids- If he fails trial of po- will need abd exploration- likely adhesions- also will ask [facility] to see re- recurrent c diff 12/14/16- diarrhea/ c diff- on vanco per NG and flagyl IV will check CT w/ contrast via NG to assess transit. consider [facility] eval to help with c diff mgt 12/13/16- will continue with nonoperative mgt- NG, IV fluids add IV flagyl for c diff- with sbo , don't know how much Vanco absorbed- depending on progress- may consider CT w/ contrast tomorrow am.
[2016-12-16 07:18] VITALS: BP 154/87; PULSE 76; TEMP 36.6; O2SAT 92
[2016-12-16] MEDS: SODIUM CHLORIDE 0.9% 1000ML 1,000 ML IV SCH ×2 (08:02→20:58)
[2016-12-16] MEDS: PANTOprazole SOD 40 MG TAB PO SCH (08:51)
[2016-12-16] MEDS: AMLODIPINE BESYLATE 5 MG TAB NG SCH (08:51)
[2016-12-16] MEDS: AMANTADINE HCL 100 MG CAP PO SCH ×2 (08:51→20:59)
[2016-12-16] MEDS: GABAPENTIN 300 MG CAP PO SCH ×3 (08:52→20:59)
[2016-12-16] MEDS: ALLOPURINOL 300 MG TAB NG SCH (08:52)
[2016-12-16] MEDS ORDERED: POTASSIUM CHLORIDE 10 MEQ TABCR PO STA (10:00)
--- NOTE | 2016-12-16 11:22 | Gastroenterology Progress Note ---
Progress Note Date of Service: Dec 16, 2016 Subjective Pt evaluation today including: conversation w/ patient, physical exam, chart review, lab review, review of studies, review of inpatient medication list Mr. Lorenzo Liu is a 71 yr old male admitted for partial SBO with C-diff diarrhea. On Flagyl IV, Vanco 125QID, he has decreased BMs, now a "smear" of loose stool with most times that he urinates. Denies pain. Eating a regular consistency diet since last night. Review of Systems Constitutional: No fever Respiratory: No cough Cardiac: No chest pain Abdomen: + diarrhea, No pain, No nausea, No vomiting, No GI bleeding Musculoskeletal: No joint pain Male : No dysuria Neuro: No memory loss Psych: No depression symptoms Heme: No abnormal bleeding/bruising Endo: No fatigue Skin: No rash Medications Current Inpatient Medications Medications (Trade) Dose Ordered Sig/Sylvia Route Start Time Stop Time Status Last Admin Dose Admin Heparin Sodium (Porcine) (Heparin Sq 5000 Unit/0.5ml) 5,000 unit Q8H SQ 12/12/16 14:00 01/11/17 13:59 12/13/16 21:23 5,000 UNIT Acetaminophen (Tylenol Tab) 650 mg Q4H PRN PO 12/12/16 06:30 01/11/17 06:29 12/12/16 18:27 650 MG Ondansetron HCl (Zofran Inj) 4 mg Q6H PRN IV 12/12/16 06:30 01/11/17 06:29 Sodium Chloride 1,000 ml @ 80 mls/hr [id number] IV 12/12/16 08:00 01/11/17 07:59 12/16/16 08:02 80 MLS/HR Morphine Sulfate (MoRPHine SULFATE INJ) 2 mg Q3H PRN IV 12/12/16 06:45 12/26/16 06:44 Amantadine HCl (Symmetrel Cap) 100 mg BID PO 12/12/16 09:00 01/11/17 08:59 12/16/16 08:51 100 MG Diltiazem HCl (TIAzac CAP) 180 mg BID PO 12/12/16 09:00 01/11/17 08:59 Future Hold Gabapentin (Neurontin Cap) 300 mg TID PO 12/12/16 09:00 01/11/17 08:59 12/16/16 08:52 300 MG Carbidopa/Levodopa (Sinemet Cr 50/ 200MG Tab) 1 tab HS PO 12/12/16 21:00 01/11/17 20:59 12/15/16 20:25 1 TAB Carbidopa/Levodopa (Sinemet 25/ 100MG Tab) 3 tab BID@0600,1100 PO 12/12/16 07:00 01/11/17 06:59 12/16/16 11:01 3 TAB Carbidopa/Levodopa (Sinemet 25/ 100MG Tab) 2 tab DAILY@1600 PO 12/12/16 16:00 01/11/17 15:59 12/15/16 16:12 2 TAB Allopurinol (Zyloprim Tab) 300 mg DAILY NG 12/13/16 09:00 01/11/17 08:59 12/16/16 08:52 300 MG Diltiazem HCl (Cardizem Tab) 60 mg Q6 NG 12/12/16 18:00 01/11/17 13:59 12/16/16 06:14 60 MG Ioversol (Optiray 320) 100 ml UD PRN IV 12/14/16 06:45 12/18/16 06:44 Amlodipine Besylate (Norvasc Tab) 5 mg QAM NG 12/15/16 09:00 01/14/17 08:59 12/16/16 08:51 5 MG Pantoprazole Sodium (Protonix Tab) 40 mg QAM PO 12/16/16 09:00 01/15/17 08:59 12/16/16 08:51 40 MG Vancomycin HCl (Vancomycin Oral Soln) 125 mg Q6@0400,1000,1600,2200 PO 12/15/16 22:00 12/22/16 21:59 12/16/16 10:11 125 MG Raspberry (Raspberry Syrup 5ml Cup) 5 ml Q6H PO 12/15/16 22:00 12/25/16 21:59 12/16/16 10:12 5 ML Objective Vital Signs Date Time Temp Pulse Resp B/P (MAP) Pulse Ox O2 Delivery O2 Flow Rate FiO2 12/16/16 07:55 Room Air 12/16/16 07:18 36.6 76 15 154/87 (109) 92 Room Air 12/16/16 06:12 74 168/91 (116) 12/16/16 00:15 Room Air 12/15/16 23:25 36.7 63 22 157/89 (111) 96 Room Air 12/15/16 16:23 78 162/90 (114) 100 Room Air 12/15/16 16:15 100 Room Air 12/15/16 15:09 36.6 82 18 169/101 (123) 97 Room Air Physical Exam General Appearance: no apparent distress ENT: pharynx normal Neck: no JVD Respiratory/Chest: lungs clear Cardiovascular: regular rate, rhythm, no JVD, no murmur Abdomen: non tender, soft, + distended (minimal distention) Neurologic/Psych: alert ( mmmmmmmmmmmmmmmmmmmmmmmmmmmmmmmmmmmmmmmmmmmmmmmmmmmmmmmmmmmmmmmmmmmmmmmmmmmmmmmm mmmmmmmmmmmmmmmmmmmmmmmmmmmmmmmmmmmmmmmmmmmmmmmmmmmmmmmmmmmmmmmmmmmmmmmmmmmmmmmm mmmmmmmmmmmmmm ), normal mood/affect, oriented x 3 Skin: no jaundice Laboratory Results Last 24 Hours Test 12/16/16 05:25 White Blood Count 4.52 K/uL Red Blood Count 4.27 M/uL Hemoglobin 13.9 g/dL Hematocrit 39.3 % Mean Corpuscular Volume 92.0 fL Mean Corpuscular Hemoglobin 32.6 pg Mean Corpuscular Hemoglobin Concent 35.4 g/dl RDW Standard Deviation 43.7 fL RDW Coefficient of Variation 13.2 % Platelet Count 166 K/uL Mean Platelet Volume 10.6 fL Sodium Level 142 mmol/L Potassium Level 3.4 mmol/L Chloride Level 108 mmol/L Carbon Dioxide Level 24 mmol/L Anion Gap 10.0 mmol/L Blood Urea Nitrogen 6 mg/dl Creatinine 0.76 mg/dl Est Creatinine Clear Calc Drug Dose 108.1 ml/min Estimated GFR () 107.1 Estimated GFR (Non- 92.4 BUN/Creatinine Ratio 7.5 Random Glucose 102 mg/dl Calcium Level 7.9 mg/dl Magnesium Level 1.8 mg/dl Assessment and Plan Mr. Liu is a 71 yr old male with a partial SBO - now resolved, with c-diff diarrhea, improving on flagyl IV, vancomycin. Plan: 1. DC IV Flagyl today. 2. Continue Vancomycin 125mg QID x total of 10 - 14 days. 3. Continue regular consistency diet. 4. GI will sign off. I have seen, examined, and agree with the plan as outlined by MACARIO Zapata -Improved
--- NOTE | 2016-12-16 13:41 | Progress Note ---
Internal Med Progress Note Date of Service: Dec 16, 2016. Provider Documentation: SUBJECTIVE: The patient was seen and examined Minimal abdominal pain No Nausea and or vomiting Has hads a small amount of bowel movement OBJECTIVE: Vital Signs-as noted below Exam: General-NO distress at rest Eyes-Normal ENT-normal Neck-supple Lungs-clear to auscultate bilaterally Heart-Regular,no murmur Abdomen-Benign,no masses,bowel sound normal Extremities-no edema Neuro-AAOx3 Lab data as noted below. ASSESSMENT & PLAN: PARTIAL SBO: -has prior hx of SBO. Past surgical history: cholecystectomy, prostatectomy and appendectomy -NG tube was placed and removed later on -IV fluids continued -PRN pain control and anti emetics -Surgery consulted, appreciate recommendation -NPO initially, now on full liquids -CT scan 12/14 results show some contrast distal to the point of obstruction but still showing signs of a partial small bowel obstruction -Tolerating diet -Likely to be discharged tomorrow C DIFF COLITIS: -started PO vancomycin day #5 (administered via NG) -2nd lifetime occurrence -Surgery added IV Flagyl -GI consulted per Surgery -Will discontinue Flagyl LLUVIA: -likely prerenal from hypovolemia and above -Cr: 1.5 on admission; now resolved and stable -continued on IV fluids, will decrease rate, can d/c today now that taking PO -hold diuretics -avoid nephrotoxic meds -resolved PARKINSON DISEASE: -continue home meds; if unable to crush sinemet, can hold until NG tube out HTN: -continue cardizem -diuretics on hold for now; secondary to LLUVIA -remains on the upper side GOUT: -continue on allopurinol GERD: -continue PPI IV PERIPHERAL NEUROPATHY: -continue gabapentin DVT prophylaxis Heparin Disposition Likely discharge tomorrow Vital Signs: Date Time Temp Pulse Resp B/P (MAP) Pulse Ox O2 Delivery O2 Flow Rate FiO2 12/16/16 07:55 Room Air 12/16/16 07:18 36.6 76 15 154/87 (109) 92 Room Air 12/16/16 06:12 74 168/91 (116) 12/16/16 00:15 Room Air 12/15/16 23:25 36.7 63 22 157/89 (111) 96 Room Air 12/15/16 16:23 78 162/90 (114) 100 Room Air 12/15/16 16:15 100 Room Air 12/15/16 15:09 36.6 82 18 169/101 (123) 97 Room Air Lab Results: Results Past 24 Hours Test 12/16/16 05:25 Range/Units White Blood Count 4.52 4.8-10.8 K/uL Red Blood Count 4.27 4.7-6.1 M/uL Hemoglobin 13.9 14.0-18.0 g/dL Hematocrit 39.3 42-52 % Mean Corpuscular Volume 92.0 80-100 fL Mean Corpuscular Hemoglobin 32.6 25-34 pg Mean Corpuscular Hemoglobin Concent 35.4 32-36 g/dl RDW Standard Deviation 43.7 36.4-46.3 fL RDW Coefficient of Variation 13.2 11.5-14.5 % Platelet Count 166 130-400 K/uL Mean Platelet Volume 10.6 7.4-10.4 fL Sodium Level 142 136-145 mmol/L Potassium Level 3.4 3.5-5.1 mmol/L Chloride Level 108 98-107 mmol/L Carbon Dioxide Level 24 21-32 mmol/L Anion Gap 10.0 3-11 mmol/L Blood Urea Nitrogen 6 7-18 mg/dl Creatinine 0.76 0.60-1.40 mg/dl Est Creatinine Clear Calc Drug Dose 108.1 ml/min Estimated GFR () 107.1 Estimated GFR (Non- 92.4 BUN/Creatinine Ratio 7.5 10-20 Random Glucose 102 70-99 mg/dl Calcium Level 7.9 8.5-10.1 mg/dl Magnesium Level 1.8 1.8-2.4 mg/dl
[2016-12-16 15:25] VITALS: BP 162/97; PULSE 78; TEMP 36.7; O2SAT 97
[2016-12-16] MEDS: CARBIDOPA/LEVODOPA 50/200MG EXT REL TAB PO SCH (20:59)
[2016-12-16 23:44] VITALS: BP 157/91; PULSE 68; TEMP 36.5; O2SAT 96
[2016-12-17] MEDS: RASPBERRY SYRUP 5 ML UDP PO SCH ×4 (03:26→21:41)
[2016-12-17] MEDS: VANCOMYCIN HCL 125 MG/2.5ML SOLN PO SCH ×4 (03:26→21:41)
[2016-12-17] MEDS: CARBIDOPA/LEVODOPA 25/100MG TAB PO SCH ×3 (05:26→16:03)
[2016-12-17] MEDS: DILTIAZEM HCL 60 MG TAB NG SCH ×4 (05:26→23:48)
[2016-12-17] MEDS: HEPARIN SOD 5000 UNIT/0.5 ML CARP SQ SCH ×3 (05:26→21:44)
[2016-12-17 06:26] LABS: HEMATOCRIT 40.6 % (42-52); MEAN CELL VOLUME 92.9 fL (80-100); MEAN CORPUSCULAR HEMOGLOBIN 32.5 pg (25-34); MEAN PLATELET VOLUME 10.8 fL (7.4-10.4); PLATELET COUNT 160 K/uL (130-400); RED BLOOD COUNT 4.37 M/uL (4.7-6.1); WHITE BLOOD COUNT 6.29 K/uL (4.8-10.8)
--- NOTE | 2016-12-17 06:42 | Surgery Progress Note ---
Surgery Progress Note Date of Service Dec 17, 2016. Subjective doing ok- wants to go home no abd pain, N/V Objective Vital Signs: Date Time Temp Pulse Resp B/P (MAP) Pulse Ox O2 Delivery O2 Flow Rate FiO2 12/16/16 23:44 36.5 68 16 157/91 (113) 96 Room Air 12/16/16 19:45 Room Air 12/16/16 18:30 Room Air 12/16/16 15:25 36.7 78 17 162/97 (118) 97 Room Air 12/16/16 07:55 Room Air 12/16/16 07:18 36.6 76 15 154/87 (109) 92 Room Air Abdomen: normal bowel sounds Laboratory Results: Results Past 24 Hours Test 12/17/16 06:12 Range/Units White Blood Count 6.29 4.8-10.8 K/uL Red Blood Count 4.37 4.7-6.1 M/uL Hemoglobin 14.2 14.0-18.0 g/dL Hematocrit 40.6 42-52 % Mean Corpuscular Volume 92.9 80-100 fL Mean Corpuscular Hemoglobin 32.5 25-34 pg Mean Corpuscular Hemoglobin Concent 35.0 32-36 g/dl RDW Standard Deviation 44.7 36.4-46.3 fL RDW Coefficient of Variation 13.2 11.5-14.5 % Platelet Count 160 130-400 K/uL Mean Platelet Volume 10.8 7.4-10.4 fL Assessment & Plan 12/17/16- can d/c from surgical standpoint- should F/U with GI as outpt- they can refer back to surgery if workup warrants 12/16/16- still some concern with adhesions but c diff likely exacerbated situation- try low fiber diet 12/15/16- will d/c NG and try liquids- If he fails trial of po- will need abd exploration- likely adhesions- also will ask [facility] to see re- recurrent c diff 12/14/16- diarrhea/ c diff- on vanco per NG and flagyl IV will check CT w/ contrast via NG to assess transit. consider [facility] eval to help with c diff mgt 12/13/16- will continue with nonoperative mgt- NG, IV fluids add IV flagyl for c diff- with sbo , don't know how much Vanco absorbed- depending on progress- may consider CT w/ contrast tomorrow am. 12/16/16- still some concern with adhesions but c diff likely exacerbated situation- try low fiber diet 12/15/16- will d/c NG and try liquids- If he fails trial of po- will need abd exploration- likely adhesions- also will ask [facility] to see re- recurrent c diff 12/14/16- diarrhea/ c diff- on vanco per NG and flagyl IV will check CT w/ contrast via NG to assess transit. consider [facility] eval to help with c diff mgt 12/13/16- will continue with nonoperative mgt- NG, IV fluids add IV flagyl for c diff- with sbo , don't know how much Vanco absorbed- depending on progress- may consider CT w/ contrast tomorrow am.
[2016-12-17 06:59] LABS: BUN/CREATININE RATIO 8.6 (10-20); CREATININE 0.86 mg/dl (0.60-1.40); MAGNESIUM 1.7 mg/dl (1.8-2.4); PHOSPHORUS 2.6 mg/dl (2.5-4.9); POTASSIUM 3.6 mmol/L (3.5-5.1)
[2016-12-17 07:05] VITALS: BP 149/83; PULSE 62; TEMP 36.7; O2SAT 96
[2016-12-17] MEDS: AMLODIPINE BESYLATE 5 MG TAB NG SCH (07:36)
[2016-12-17] MEDS: GABAPENTIN 300 MG CAP PO SCH ×3 (07:37→21:42)
[2016-12-17] MEDS: AMANTADINE HCL 100 MG CAP PO SCH ×2 (07:37→21:43)
[2016-12-17] MEDS: ALLOPURINOL 300 MG TAB NG SCH (07:37)
[2016-12-17] MEDS: PANTOprazole SOD 40 MG TAB PO SCH (07:37)
[2016-12-17] MEDS ORDERED: BISACODYL 10 MG SUPP PR ONE (12:15)
[2016-12-17] MEDS ORDERED: SOD PHOSPHATE/SOD BIPHOSPHATE ENEMA 132 ML BTL PR PRN (14:30)
[2016-12-17 15:06] VITALS: BP 156/102; PULSE 74; TEMP 36.7; O2SAT 98
--- NOTE | 2016-12-17 16:02 | Progress Note ---
Internal Med Progress Note Date of Service: Dec 17, 2016. Provider Documentation: SUBJECTIVE: The patient was seen and examined Minimal abdominal pain No Nausea and or vomiting Has had a small amount of bowel movement Feels bloated today and bowel is not moved OBJECTIVE: Vital Signs-as noted below Exam: General-NO distress at rest Eyes-Normal ENT-normal Neck-supple Lungs-clear to auscultate bilaterally Heart-Regular,no murmur Abdomen-Benign,minimally distended,no masses,bowel sound decreased Extremities-no edema Neuro-AAOx3 Lab data as noted below. ASSESSMENT & PLAN: PARTIAL SBO: -has prior hx of SBO. Past surgical history: cholecystectomy, prostatectomy and appendectomy -NG tube was placed and removed later on -IV fluids continued -PRN pain control and anti emetics -Surgery consulted, appreciate recommendation -NPO initially, now on full liquids -CT scan 12/14 results show some contrast distal to the point of obstruction but still showing signs of a partial small bowel obstruction -Tolerating diet -early obstructive feature since this AM -Bowel not moved -Try suppository and Enema -discharge tomorrow if ok C DIFF COLITIS: -started PO vancomycin day #5 (administered via NG) -2nd lifetime occurrence -Surgery added IV Flagyl -GI consulted per Surgery -Will discontinue Flagyl LLUVIA: -likely prerenal from hypovolemia and above -Cr: 1.5 on admission; now resolved and stable -continued on IV fluids, will decrease rate, can d/c today now that taking PO -hold diuretics -avoid nephrotoxic meds -resolved PARKINSON DISEASE: -continue home meds; if unable to crush sinemet, can hold until NG tube out HTN: -continue cardizem -diuretics on hold for now; secondary to LLUVIA -remains on the upper side GOUT: -continue on allopurinol GERD: -continue PPI IV PERIPHERAL NEUROPATHY: -continue gabapentin DVT prophylaxis Heparin Disposition Likely discharge tomorrow Vital Signs: Date Time Temp Pulse Resp B/P (MAP) Pulse Ox O2 Delivery O2 Flow Rate FiO2 12/17/16 15:06 36.7 74 18 156/102 (120) 98 Room Air 12/17/16 07:45 Room Air 12/17/16 07:05 36.7 62 16 149/83 (105) 96 Room Air 12/16/16 23:44 36.5 68 16 157/91 (113) 96 Room Air 12/16/16 19:45 Room Air 12/16/16 18:30 Room Air Lab Results: Results Past 24 Hours Test 12/17/16 06:12 Range/Units White Blood Count 6.29 4.8-10.8 K/uL Red Blood Count 4.37 4.7-6.1 M/uL Hemoglobin 14.2 14.0-18.0 g/dL Hematocrit 40.6 42-52 % Mean Corpuscular Volume 92.9 80-100 fL Mean Corpuscular Hemoglobin 32.5 25-34 pg Mean Corpuscular Hemoglobin Concent 35.0 32-36 g/dl RDW Standard Deviation 44.7 36.4-46.3 fL RDW Coefficient of Variation 13.2 11.5-14.5 % Platelet Count 160 130-400 K/uL Mean Platelet Volume 10.8 7.4-10.4 fL Sodium Level 140 136-145 mmol/L Potassium Level 3.6 3.5-5.1 mmol/L Chloride Level 109 98-107 mmol/L Carbon Dioxide Level 23 21-32 mmol/L Anion Gap 8.0 3-11 mmol/L Blood Urea Nitrogen 7 7-18 mg/dl Creatinine 0.86 0.60-1.40 mg/dl Est Creatinine Clear Calc Drug Dose 95.5 ml/min Estimated GFR () 101.8 Estimated GFR (Non- 87.9 BUN/Creatinine Ratio 8.6 10-20 Random Glucose 98 70-99 mg/dl Calcium Level 8.0 8.5-10.1 mg/dl Phosphorus Level 2.6 2.5-4.9 mg/dl Magnesium Level 1.7 1.8-2.4 mg/dl
[2016-12-17] MEDS: CARBIDOPA/LEVODOPA 50/200MG EXT REL TAB PO SCH (21:42)
[2016-12-17 23:45] VITALS: BP 151/87; PULSE 73; TEMP 36.9; O2SAT 99
[2016-12-18] MEDS: RASPBERRY SYRUP 5 ML UDP PO SCH ×3 (03:58→15:38)
[2016-12-18] MEDS: VANCOMYCIN HCL 125 MG/2.5ML SOLN PO SCH ×3 (03:58→15:38)
[2016-12-18] MEDS: HEPARIN SOD 5000 UNIT/0.5 ML CARP SQ SCH ×2 (06:00→13:15)
[2016-12-18] MEDS: DILTIAZEM HCL 60 MG TAB NG SCH ×3 (06:02→17:56)
[2016-12-18] MEDS: CARBIDOPA/LEVODOPA 25/100MG TAB PO SCH ×3 (06:03→15:39)
--- NOTE | 2016-12-18 06:28 | Surgery Progress Note ---
Surgery Progress Note Date of Service Dec 18, 2016. Subjective had bm- passing flatus but feels he is "blocked up" no N/V Objective Vital Signs: Date Time Temp Pulse Resp B/P (MAP) Pulse Ox O2 Delivery O2 Flow Rate FiO2 12/17/16 23:45 36.9 73 16 151/87 (108) 99 Room Air 12/17/16 20:05 Room Air 12/17/16 15:06 36.7 74 18 156/102 (120) 98 Room Air 12/17/16 07:45 Room Air 12/17/16 07:05 36.7 62 16 149/83 (105) 96 Room Air General Appearance: no apparent distress Respiratory/Chest: no respiratory distress Abdomen: normal bowel sounds, + pertinent finding (has active bs, mild distention, min pain) Laboratory Results: Results Past 24 Hours Test 12/18/16 04:44 Range/Units Assessment & Plan 12/18/16- will check UGI/SBF- likely has adhesions and partial sbo interesting that his bowel sounds are active- may be some element related to c diff- may still need abd exploration, Lysis of adhesions depending on progress addendum- small bowel follow shows no small bowel obstruction will order regular diet and discuss with medical team- need for Senokot S and Miralax or similar to help with bowel function for now 12/17/16- can d/c from surgical standpoint- should F/U with GI as outpt- they can refer back to surgery if workup warrants 12/16/16- still some concern with adhesions but c diff likely exacerbated situation- try low fiber diet 12/15/16- will d/c NG and try liquids- If he fails trial of po- will need abd exploration- likely adhesions- also will ask [facility] to see re- recurrent c diff 12/14/16- diarrhea/ c diff- on vanco per NG and flagyl IV will check CT w/ contrast via NG to assess transit. consider [facility] eval to help with c diff mgt 12/13/16- will continue with nonoperative mgt- NG, IV fluids add IV flagyl for c diff- with sbo , don't know how much Vanco absorbed- depending on progress- may consider CT w/ contrast tomorrow am. 12/17/16- can d/c from surgical standpoint- should F/U with GI as outpt- they can refer back to surgery if workup warrants 12/16/16- still some concern with adhesions but c diff likely exacerbated situation- try low fiber diet 12/15/16- will d/c NG and try liquids- If he fails trial of po- will need abd exploration- likely adhesions- also will ask [facility] to see re- recurrent c diff 12/14/16- diarrhea/ c diff- on vanco per NG and flagyl IV will check CT w/ contrast via NG to assess transit. consider [facility] to help with c diff mgt 12/13/16- will continue with nonoperative mgt- NG, IV fluids add IV flagyl for c diff- with sbo , don't know how much Vanco absorbed- depending on progress- may consider CT w/ contrast tomorrow am.
[2016-12-18 06:45] LABS: HEMATOCRIT 41.8 % (42-52); MEAN CELL VOLUME 92.9 fL (80-100); MEAN CORPUSCULAR HEMOGLOBIN 33.6 pg (25-34); MEAN CORPUSCULAR HGB CONC 36.1 g/dl (32-36); MEAN PLATELET VOLUME 10.8 fL (7.4-10.4); PLATELET COUNT 183 K/uL (130-400); WHITE BLOOD COUNT 6.34 K/uL (4.8-10.8)
[2016-12-18 07:45] VITALS: BP 156/88; PULSE 73; TEMP 36.6; O2SAT 95
[2016-12-18] MEDS ORDERED: DOCUSATE SODIUM/SENNA 50/8.6MG TAB PO SCH (09:00)
[2016-12-18] MEDS: GABAPENTIN 300 MG CAP PO SCH ×2 (09:00→14:37)
[2016-12-18] MEDS: MAGNESIUM SULFATE 1GM / D5W 1 GM in PREMIXED IN D5W 100 ML IV SCH ×2 (13:10→14:35)
--- NOTE | 2016-12-18 13:15 | Progress Note ---
Internal Med Progress Note Date of Service: Dec 18, 2016. Provider Documentation: SUBJECTIVE: The patient was seen and examined More abdominal distention this AM Bowel moved -small amount Has had negative UGI Series OBJECTIVE: Vital Signs-as noted below Exam: General-N0 distress at rest Eyes-Normal ENT-normal Neck-supple Lungs-clear to auscultate bilaterally Heart-Regular,no murmur Abdomen-Benign,minimally distended,no masses,bowel sound decreased Soft and nontender Extremities-no edema Neuro-AAOx3 Lab data as noted below. ASSESSMENT & PLAN: PARTIAL SBO: -has prior hx of SBO. Past surgical history: cholecystectomy, prostatectomy and appendectomy -NG tube was placed and removed later on -IV fluids continued -PRN pain control and anti emetics -Surgery consulted, appreciate recommendation -NPO initially, now on full liquids and subsequently advanced -CT scan 12/14 results show some contrast distal to the point of obstruction but still showing signs of a partial small bowel obstruction -early obstructive feature since this AM 12/17 and on 12/18 -Try suppository and Enema 12/17/16 -UGI series OK this AM -Surgery advanced his diet and if tolerated will discharge this afternoon C DIFF COLITIS: -started PO vancomycin day #5 (administered via NG) -2nd lifetime occurrence -Surgery added IV Flagyl -GI consulted per Surgery -Will discontinue Flagyl Constipation Will give stool softener on discharge LLUVIA: -likely prerenal from hypovolemia and above -Cr: 1.5 on admission; now resolved and stable -continued on IV fluids, will decrease rate, can d/c today now that taking PO -hold diuretics -avoid nephrotoxic meds -resolved PARKINSON DISEASE: -continue home meds; if unable to crush sinemet, can hold until NG tube out HTN: -continue Cardizem -diuretics on hold for now; secondary to LLUVIA -remains on the upper side GOUT: -continue on allopurinol GERD: -continue PPI IV PERIPHERAL NEUROPATHY: -continue gabapentin DVT prophylaxis Heparin Disposition Likely discharge today Vital Signs: Date Time Temp Pulse Resp B/P (MAP) Pulse Ox O2 Delivery O2 Flow Rate FiO2 12/18/16 08:10 Room Air 12/18/16 07:45 36.6 73 15 156/88 (110) 95 Room Air 12/17/16 23:45 36.9 73 16 151/87 (108) 99 Room Air 12/17/16 20:05 Room Air 12/17/16 15:06 36.7 74 18 156/102 (120) 98 Room Air Lab Results: Results Past 24 Hours Test 12/18/16 06:29 Range/Units White Blood Count 6.34 4.8-10.8 K/uL Red Blood Count 4.50 4.7-6.1 M/uL Hemoglobin 15.1 14.0-18.0 g/dL Hematocrit 41.8 42-52 % Mean Corpuscular Volume 92.9 80-100 fL Mean Corpuscular Hemoglobin 33.6 25-34 pg Mean Corpuscular Hemoglobin Concent 36.1 32-36 g/dl RDW Standard Deviation 45.7 36.4-46.3 fL RDW Coefficient of Variation 13.4 11.5-14.5 % Platelet Count 183 130-400 K/uL Mean Platelet Volume 10.8 7.4-10.4 fL
--- NOTE | 2016-12-18 14:08 | DIAGNOSTIC IMAGING REPORT ---
SMALL BOWEL STUDY CLINICAL HISTORY: Abdominal pain and distention COMPARISON STUDY: CT scan dated 12/14/2016 FLUOROSCOPY TIME: 2.9 minutes. NUMBER OF FLUOROSCOPIC IMAGES: 20 FINDINGS: The patient was administered Enterovue a small bowel study was performed. Contrast reached the cecum in 3 hours and 45 minutes. There are no abnormally dilated loops of jejunum or ileum. There is no abnormal loop separation. No focal small bowel abnormalities are visualized on spot views. There is a small amount of formed fecal material within the distal small bowel. IMPRESSION: No obstructive changes identified. Electronically signed by: Anup Dempsey M.D. 12/18/2016 2:06 PM Dictated Date/Time: 12/18/2016 2:01 PM
[2016-12-18] MEDS: AMANTADINE HCL 100 MG CAP PO SCH (14:38)
[2016-12-18] MEDS: AMLODIPINE BESYLATE 5 MG TAB NG SCH (14:39)
[2016-12-18] MEDS: PANTOprazole SOD 40 MG TAB PO SCH (14:40)
[2016-12-18] MEDS: ALLOPURINOL 300 MG TAB NG SCH (14:40)
[2016-12-18 14:41] VITALS: BP 137/85; PULSE 73
[2016-12-18 15:14] VITALS: BP 147/88; PULSE 69; TEMP 36.6; O2SAT 96
[2016-12-18] MEDS ORDERED: SNK PO (16:27)
[2016-12-18] MEDS ORDERED: NRV5 NG (16:27)
[2016-12-18] MEDS ORDERED: VNCS125 PO (16:27)
--- NOTE | 2016-12-18 16:29 | Discharge Instructions ---
Discharge Instructions Date of Service Dec 18, 2016. Admission Reason for Admission: Partial Small Bowel Obstruction Discharge Discharge Diagnosis / Problem: SBO-resolved,C Diff Colitis Discharge Goals Goal(s): Prevent Disease Progression Activity Recommendations Activity Limitations: resume your previous activity . Instructions / Follow-Up Instructions / Follow-Up Please make an appointment with your PCP in 1 week Current Hospital Diet Patient's current hospital diet: Regular Diet Discharge Diet Recommended Diet: Regular Diet, Low Fiber Diet Pending Studies Studies pending at discharge: no Medical Emergencies . Who to Call and When: Medical Emergencies: If at any time you feel your situation is an emergency, please call 911 immediately. . Non-Emergent Contact Non-Emergency issues call your: Primary Care Provider . Past History Medical & Surgical History: (1) SBO (small bowel obstruction) (2) C. difficile colitis (3) Abdominal pain (4) Back pain (5) Hypertension . "Provider Documentation" section prepared by Ady Barnes. . VTE Core Measure Inpt VTE Proph given/why not?: Unfractionated heparin SQ
[2016-12-18 17:48] VITALS: BP 147/88; PULSE 69; TEMP 36.6; O2SAT 96
--- NOTE | 2016-12-22 14:36 | Discharge Summary ---
Discharge Summary Date of Service Dec 22, 2016. Discharge Summary Admission Date: Dec 12, 2016 at 06:29 Discharge Date: Dec 18, 2016 Discharge Disposition: Home Principal Diagnosis: SBO-resolved,C Diff Colitis Secondary Diagnoses/Problems: Please see H&P and hospital progress note Consultations: Surgery and GI Medication Reconciliation New Medications: Senna (Senna Lax) 8.6 Mg Tab 8.6 MG PO BID, #60 Amlodipine Besylate (Amlodipine Besylate) 5 Mg Tab 5 MG NG QAM for 30 Days, #30 TAB Vancomycin HCl (Vancomycin HCl) 125 Mg/2.5 Ml Susp 125 MG PO Q6@0400,1000,1600,2200 for 8 Days, #32 Continued Medications: Allopurinol (Allopurinol) 300 Mg Tab 300 MG PO DAILY Amantadine Hcl (Amantadine Hcl) 100 Mg Cap 100 MG PO BID, CAP Atorvastatin (Lipitor) 80 Mg Tab 40 MG PO DAILY, TAB Carbidopa-Levodopa (Sinemet Cr 50-200 mg) 1 Tab Tab 1 TAB PO HS Carbidopa/Levodopa (Sinemet 25MG/100MG) Tab 3 TABS PO BID AT 0600 & 1100, TAB Carbidopa/Levodopa (Sinemet 25MG/100MG) Tab 2 TABS DAILY AT 1600 Diltiazem Hcl (Tiazac) 180 Mg Cap 180 MG PO BID, CAP Fish Oil-Cholecalciferol (Fish Oil + D3) 1 Cap Cap 1 CAP PO DAILY Furosemide (Lasix) 20 Mg Tab 20 MG PO DAILY, TAB Gabapentin (Neurontin) 300 Mg Cap 300 MG PO TID, CAP Multivitamin (Multivitamin) Tab 1 TAB PO DAILY, 0 Refills Omeprazole (Prilosec) 20 Mg Capcr 20 MG PO DAILY, CAP Potassium Ext Rel (Klor-Con) 20 Meq Tabcr 20 MEQ PO BID, TAB Rosuvastatin Calcium (Crestor) 20 Mg Tab 20 MG PO DAILY, TAB Spironolactone (Aldactone) 25 Mg Tab 25 MG PO DAILY, TAB Admission Information HPI (per Admitting provider): Patient is a 71 yr male with PMH of Parkinson's disease, HTN, HLP, Gout, GERD, peripheral Neuropathy, SBO and history of C.diff presents with history of worsening abdominal pain associated with nausea, vomiting and diarrhea since yesterday. Reports abdominal pain is diffuse, constant, sharp to dull, 9/10, non radiating and with out any aggravating/relieving factors. Also reports diarrhea, non bloody yesterday which has subsided today after use of pepto- bismol. States he had 2 episodes of watery, non bloody vomitus as well and has intermittent dizziness. He had cholecystectomy, prostatectomy and appendectomy in the past. Denies any history of fever, chills, chest pain, SOB, headache, change in vision, dysuria, cough, wheezing, recent change in medications. Past Medical/Surgical History Medical Problems: (1) Hypertension Status: Chronic Family History Diabetes mellitus Reviewed, Not contributory Social History Smoking Status: Former Smoker Alcohol Use: socially Drug Use: none Marital Status: Housing status: lives with family Occupational Status: retired Immunizations History of Influenza Vaccine: Yes Influenza Vaccine Date: Dec 06, 2009 History of Tetanus Vaccine?: Yes Tetanus Immunization Date: Dec 07, 2002 History of Pneumococcal: No History of Hepatitis B Vaccine: No Multi-Drug Resistant Organisms History of MDRO: No Allergies Coded Allergies: No Known Allergies (Verified , 12/12/16) Home Medications Scheduled Allopurinol (Allopurinol), 300 MG PO DAILY Amantadine Hcl (Amantadine Hcl), 100 MG PO BID Atorvastatin (Lipitor), 40 MG PO DAILY Carbidopa-Levodopa (Sinemet Cr 50-200 mg), 1 TAB PO HS Carbidopa/Levodopa (Sinemet 25MG/100MG), 3 TABS PO BID AT 0600 & 1100 Carbidopa/Levodopa (Sinemet 25MG/100MG), 2 TABS DAILY AT 1600 Diltiazem Hcl (Tiazac), 180 MG PO BID Fish Oil-Cholecalciferol (Fish Oil + D3), 1 CAP PO DAILY Furosemide (Lasix), 20 MG PO DAILY Gabapentin (Neurontin), 300 MG PO TID Multivitamin (Multivitamin), 1 TAB PO DAILY Omeprazole (Prilosec), 20 MG PO DAILY Potassium Ext Rel (Klor-Con), 20 MEQ PO BID Rosuvastatin Calcium (Crestor), 20 MG PO DAILY Spironolactone (Aldactone), 25 MG PO DAILY Review of Systems See HPI for pertinent positives & negatives. A total of 10 systems reviewed and were otherwise negative. Physical Ex - H&P Physical Exam Vital Signs Date Time Temp Pulse Resp B/P (MAP) Pulse Ox O2 Delivery O2 Flow Rate FiO2 12/12/16 05:03 92 18 128/99 95 Room Air 12/12/16 05:00 93 12/12/16 04:40 36.7 106 18 112/73 95 Room Air General Appearance: WD/WN, no apparent distress Head: normocephalic, atraumatic Eyes: normal inspection, PERRL, EOMI, sclerae normal ENT: normal ENT inspection, hearing grossly normal Neck: supple, no JVD, trachea midline Respiratory/Chest: chest non-tender, lungs clear, no accessory muscle use, + decreased breath sounds Cardiovascular: regular rate, rhythm, no edema, no JVD, no murmur Abdomen/GI: soft, + tenderness (Epigastric, LUQ), + pertinent finding ( Distended, decreased bowel sounds) Back: normal inspection Extremities/Musculoskelatal: normal inspection, no pedal edema 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, no motor/sensory deficits, alert, normal mood/affect, oriented x 3 Skin: normal color, warm/dry Diagnostics - H&P Diagnostics Laboratory Results Results Past 24 Hours Test 12/12/16 04:55 12/12/16 05:35 Range/Units White Blood Count 14.98 4.8-10.8 K/uL Red Blood Count 5.25 4.7-6.1 M/uL Hemoglobin 17.5 14.0-18.0 g/dL Hematocrit 48.7 42-52 % Mean Corpuscular Volume 92.8 80-100 fL Mean Corpuscular Hemoglobin 33.3 25-34 pg Mean Corpuscular Hemoglobin Concent 35.9 32-36 g/dl Platelet Count 211 130-400 K/uL Mean Platelet Volume 11.7 7.4-10.4 fL Neutrophils (%) (Auto) 77.3 % Lymphocytes (%) (Auto) 14.4 % Monocytes (%) (Auto) 7.3 % Eosinophils (%) (Auto) 0.5 % Basophils (%) (Auto) 0.2 % Neutrophils # (Auto) 11.57 1.4-6.5 K/uL Lymphocytes # (Auto) 2.16 1.2-3.4 K/uL Monocytes # (Auto) 1.09 0.11-0.59 K/uL Eosinophils # (Auto) 0.08 0-0.5 K/uL Basophils # (Auto) 0.03 0-0.2 K/uL RDW Standard Deviation 45.8 36.4-46.3 fL RDW Coefficient of Variation 13.5 11.5-14.5 % Immature Granulocyte % (Auto) 0.3 % Immature Granulocyte # (Auto) 0.05 0.00-0.02 K/uL Sodium Level 139 136-145 mmol/L Potassium Level 4.2 3.5-5.1 mmol/L Chloride Level 105 98-107 mmol/L Carbon Dioxide Level 25 21-32 mmol/L Anion Gap 9.0 3-11 mmol/L Blood Urea Nitrogen 23 7-18 mg/dl Creatinine 1.50 0.60-1.40 mg/dl Est Creatinine Clear Calc Drug Dose 59.4 ml/min Estimated GFR () 53.9 Estimated GFR (Non- 46.5 BUN/Creatinine Ratio 15.4 10-20 Random Glucose 146 70-99 mg/dl Calcium Level 9.0 8.5-10.1 mg/dl Total Bilirubin 1.4 0.2-1 mg/dl Direct Bilirubin 0.4 0-0.2 mg/dl Aspartate Amino Transf (AST/SGOT) 51 15-37 U/L Alanine Aminotransferase (ALT/SGPT) 52 12-78 U/L Alkaline Phosphatase 159 45-117 U/L Total Protein 7.9 6.4-8.2 gm/dl Albumin 4.0 3.4-5.0 gm/dl Lipase 280 73-393 U/L Urine Color ORANGE Urine Appearance CLOUDY CLEAR Urine pH 5.0 4.5-7.5 Urine Specific Victor 1.039 1.000-1.030 Urine Protein 1+ NEG Urine Glucose (UA) NEG NEG Urine Ketones 1+ NEG Urine Occult Blood NEG NEG Urine Nitrite POS NEG Urine Bilirubin NEG NEG Urine Urobilinogen NEG NEG Urine Leukocyte Esterase SMALL NEG Urine WBC (Auto) 5-10 0-5 /hpf Urine RBC (Auto) 0-4 0-4 /hpf Urine Hyaline Casts (Auto) 10-30 0-5 /lpf Urine Epithelial Cells (Auto) >30 0-5 /lpf Urine Bacteria (Auto) NEG NEG Urine Pathogenic Casts 0-3 GRANULAR CASTS 0 /lpf Urine Mucus PRESENT NONE PRSENT Microbiology Results 10/13/17 C.difficile Toxin B Gene (PCR), Received Pending Diagnostic Radiology Abdominal X ray: findings showed Multiple dilated loops of small bowel with air fluid levels suggestive of SBO Official read is pending EKG EKG: NSR, LAFB Impression - H&P Impression Assessment and Plan Abdominal pain secondary to SBO: h/o SBO and cholecystectomy, prostatectomy and appendectomy NG tube, IV fluids, pain control Surgery consulted NPO for now Diarrhea: Likely secondary to above H/O C.diff Check stool for C.diff LLUVIA: likely prerenal Cr: 1.5 on admission IV fluids Hold diuretics for now monitor renal function avoid nephrotoxic meds as able Leukocytosis: Likely reactive Contaminated Urine sample Afebrile, denies dysuria Urine culture Hold Abx for now check lactate, procalcitonin Parkinson's disease: continue home meds HTN: Continue BB Diuretics held secondary to LLUVIA monitor Gout: on allopurinol GERD: continue PPI Peripheral Neuropathy: continue gabapentin DVT Px: Heparin SQ Code Status: Full Code VTE Prophylaxis VTE Risk Assessment Done? Y/N: Yes Risk Level: Low Physical Exam (per Admitting): General Appearance: WD/WN, no apparent distress Head: normocephalic, atraumatic Eyes: normal inspection, PERRL, EOMI, sclerae normal ENT: normal ENT inspection, hearing grossly normal Neck: supple, no JVD, trachea midline Respiratory/Chest: chest non-tender, lungs clear, no accessory muscle use, + decreased breath sounds Cardiovascular: regular rate, rhythm, no edema, no JVD, no murmur Abdomen/GI: soft, + tenderness (Epigastric, LUQ), + pertinent finding ( Distended, decreased bowel sounds) Back: normal inspection Extremities/Musculoskelatal: normal inspection, no pedal edema 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 Past surgical history: cholecystectomy, prostatectomy and appendectomy -NG tube was placed and removed later on -IV fluids continued -PRN pain control and anti emetics -Surgery consulted, appreciate recommendation -NPO initially, now on full liquids and subsequently advanced -CT scan 12/14 results show some contrast distal to the point of obstruction but still showing signs of a partial small bowel obstruction -early obstructive feature since this AM 12/17 and on 12/18 -Try suppository and Enema 12/17/16 -UGI series OK this AM -Surgery advanced his diet and if tolerated will discharge this afternoon C DIFF COLITIS: -started PO vancomycin day #5 (administered via NG) -2nd lifetime occurrence -Surgery added IV Flagyl -GI consulted per Surgery -Will discontinue Flagyl Constipation Will give stool softener on discharge LLUVIA: -likely prerenal from hypovolemia and above -Cr: 1.5 on admission; now resolved and stable -continued on IV fluids, will decrease rate, can d/c today now that taking PO -hold diuretics -avoid nephrotoxic meds -resolved PARKINSON DISEASE: -continue home meds; if unable to crush sinemet, can hold until NG tube out HTN: -continue Cardizem -diuretics on hold for now; secondary to LLUVIA -remains on the upper side GOUT: -continue on allopurinol GERD: -continue PPI IV PERIPHERAL NEUROPATHY: -continue gabapentin DVT prophylaxis Heparin Disposition Likely discharge today Total time spent on discharge = 35 minutes This includes examination of the patient, discharge planning, medication reconciliation, and communication with other providers. Discharge Instructions Date of Service Dec 18, 2016. Admission Reason for Admission: Partial Small Bowel Obstruction Discharge Discharge Diagnosis / Problem: SBO-resolved,C Diff Colitis Discharge Goals Goal(s): Prevent Disease Progression Activity Recommendations Activity Limitations: resume your previous activity . Instructions / Follow-Up Instructions / Follow-Up Please make an appointment with your PCP in 1 week Current Hospital Diet Patient's current hospital diet: Regular Diet Discharge Diet Recommended Diet: Regular Diet, Low Fiber Diet Pending Studies Studies pending at discharge: no Medical Emergencies . Who to Call and When: Medical Emergencies: If at any time you feel your situation is an emergency, please call 911 immediately. . Non-Emergent Contact Non-Emergency issues call your: Primary Care Provider . Past History Medical & Surgical History: (1) SBO (small bowel obstruction) (2) C. difficile colitis (3) Abdominal pain (4) Back pain (5) Hypertension . "Provider Documentation" section prepared by Ady Barnes. . VTE Core Measure Inpt VTE Proph given/why not?: Unfractionated heparin SQ <Electronically signed by Ady Barnes M.D.> Signed: 12/18/16 [id number] Additional Copies To Diana Witt
== END 2016-12-18 18:49 | disposition home or self-care (01) | DRG 389 ==
LOC: C.EDB 04:39 → UNDOADMIN 06:29 → C.3E 06:29 → ENRESERV 06:44
PROVIDERS: ADMIT Internal Medicine; ATTEND Internal Medicine
DX: K56.51 Intestinal adhesions [bands], with partial obstruction (principal); N17.9 Acute kidney failure, unspecified; A04.71 Enterocolitis due to Clostridium difficile, recurrent; K59.00 Constipation, unspecified; E86.1 Hypovolemia; G20 Parkinson's disease; I10 Essential (primary) hypertension; M10.9 Gout, unspecified; K21.9 Gastro-esophageal reflux disease without esophagitis; G62.9 Polyneuropathy, unspecified; T53.7X1 Toxic effect of other halogen derivatives of aromatic hydrocarbons, accidental (unintentional); E78.5 Hyperlipidemia, unspecified; Z87.891 Personal history of nicotine dependence; Z79.899 Other long term (current) drug therapy

== ENCOUNTER 2019-11-01 08:15 | Observation (INO) ==
--- NOTE | 2019-09-30 14:19 | PAT Medication Instructions ---
Medication Instructions Date of Service September 30, 2019 Home Medications Medication Instructions Recorded meloxicam 15 mg tablet 15 mg PO DAILY PRN #30 tab 09/14/19 Wheeled Walker #1 ea 09/22/19 allopurinol 300 mg PO QAM amantadine HCl 100 mg PO BID atorvastatin [Lipitor] 40 mg PO HS carbidopa-levodopa 1 tab PO HS carbidopa-levodopa 2 tab PO QPM carbidopa-levodopa 3 tab PO BID diltiazem HCl 180 mg PO BID furosemide 20 mg PO Q OTHER DAY gabapentin 300 mg PO BID gabapentin 900 mg PO HS omeprazole 40 mg PO QAM potassium chloride 20 meq PO TID sennosides [Senna Lax] 8.6 mg PO BID PRN spironolactone 25 mg PO QAM meloxicam 15 mg tablet 15 mg PO DAILY PRN duloxetine 30 mg PO QAM famotidine 20 mg PO QAM [id number] oil-vit D3 [Fish Oil-Vit D3] 1 cap PO Q2D ASK your surgeon for instructions meloxicam 15 mg tablet 15 mg PO DAILY PRN STOP taking 2 weeks before surgery (or as soon as possible if surgery is within 2 weeks) [id number]-[id number] oil-vit D3 [Fish Oil-Vit D3] 1 cap PO Q2D DO NOT take the morning of surgery furosemide 20 mg PO Q OTHER DAY potassium chloride 20 meq PO TID sennosides [Senna Lax] 8.6 mg PO BID PRN spironolactone 25 mg PO QAM Take morning of surgery With a small sip of water, OTHERWISE NOTHING TO EAT OR DRINK AFTER MIDNIGHT: allopurinol 300 mg PO QAM amantadine HCl 100 mg PO BID carbidopa-levodopa 3 tab PO BID diltiazem HCl 180 mg PO BID gabapentin 300 mg PO BID omeprazole 40 mg PO QAM duloxetine 30 mg PO QAM famotidine 20 mg PO QAM Take evening before surgery amantadine HCl 100 mg PO BID atorvastatin [Lipitor] 40 mg PO HS carbidopa-levodopa 1 tab PO HS carbidopa-levodopa 2 tab PO QPM carbidopa-levodopa 3 tab PO BID diltiazem HCl 180 mg PO BID gabapentin 300 mg PO BID gabapentin 900 mg PO HS potassium chloride 20 meq PO TID sennosides [Senna Lax] 8.6 mg PO BID PRN (if needed) Other Notes If you have any questions please call us at [phone] or [phone] or [phone] or [phone]
--- NOTE | 2019-10-03 12:43 | Anesthesiology Consultation ---
Date of Service October 03, 2019 Assessment & Plan (1) Encounter for pre-operative examination: Per PAT assessment on 10/02: Travel screen negative. No known COVID-19 positive contacts. No current COVID-19 related symptoms. Surgeon arranging preop COVID testing. Awaiting results. Chart Review Chart Review: Acceptable Risk for Surgery and Patient seen in Pre Admission Testing Teaching & Discussion Pre-Anesthesia Teaching/Discussion Notes: Instructed NPO after midnight before surgery,except medications with 15 cc of water. Medication instructions pr ovided according to the PAT guidelines. History Surgery Operation Date: 11/01/19 08:50 Proposed Procedures p Right Total Knee Arthroplasty - Doe Osuna MD Height/Weight Height: 6 ft 3 in Weight: 107.8 kg Allergies Allergy/AdvReac Type Severity Reaction Status Date / Time simvastatin [From Zocor] AdvReac Unknown Fatigue Verified 09/30/19 14:17 Medications Home Medications Medication Instructions Recorded Confirmed Last Taken allopurinol 300 mg PO QAM 09/09/18 09/27/19 09/09/18 amantadine HCl 100 mg PO BID 09/09/18 09/27/19 09/09/18 atorvastatin [Lipitor] 40 mg PO HS 09/09/18 09/27/19 09/09/18 carbidopa-levodopa 1 tab PO HS 09/09/18 09/27/19 09/08/18 carbidopa-levodopa 2 tab PO QPM 09/09/18 09/27/19 09/08/18 carbidopa-levodopa 3 tab PO BID 09/09/18 09/27/19 09/09/18 diltiazem HCl 180 mg PO BID 09/09/18 09/27/19 09/09/18 furosemide 20 mg PO Q OTHER DAY 09/09/18 09/27/19 09/09/18 gabapentin 300 mg PO BID 09/09/18 09/27/19 09/09/18 gabapentin 900 mg PO HS 09/09/18 09/27/19 09/08/18 omeprazole 40 mg PO QAM 09/09/18 09/27/19 09/09/18 potassium chloride 20 meq PO TID 09/09/18 09/27/19 09/09/18 sennosides [Senna Lax] 8.6 mg PO BID PRN 09/09/18 09/27/19 Unknown spironolactone 25 mg PO QAM 09/09/18 09/27/19 09/09/18 meloxicam 15 mg tablet 15 mg PO DAILY PRN #30 tab 09/14/19 09/27/19 Unknown Wheeled Walker #1 ea 09/22/19 Unknown duloxetine 30 mg PO QAM 09/27/19 09/27/19 Unknown famotidine 20 mg PO QAM 09/27/19 09/27/19 Unknown xp-3-[id number]-epa-fish oil-vit D3 [Fish 1 cap PO Q2D 09/27/19 09/27/19 Unknown Oil-Vit D3] Past Medical History Medical History Acid reflux controlled Arthritis Chronic back pain Gout HLD (hyperlipidemia) Hypertension Neuropathy Parkinson's disease follows with Dr. Dyer/[place] Prostate cancer s/p prostatectomy (2000), no chemo/no XRT SBO (small bowel obstruction) several years ago during admission for c. diff, no surgical intervention Exercise / Class Metabolic Activity III < 4 Walking/Shop/Light housework Past Family History Family History Son Family history of diabetes mellitus Daughter Family history of diabetes mellitus Other Diabetes Past Surgical History Surgical History History of colonoscopy History of esophagogastroduodenoscopy (EGD) History of prostatectomy 2000 Hx of appendectomy Hx of cholecystectomy Past Anesthesia History No Hx of Anesthesia Complications and No Family Hx of Anesthesia Complications History of PONV No Hx of PONV and No Hx of Motion Sickness Social History Smoking Status: Former smoker Do You Dip or Chew Tobacco: No Smoking End Date: QUIT 40 YRS AGO Hx Alcohol Use: Yes Alcohol type: beer alcohol intake frequency: a few times a week Hx Substance Use: No Review of Systems Chronic, GERD-related cough unchanged. Patient denies chest pain, shortness of breath, fever, chills, wheezing, palpitations. Physical Exam Vital Signs VITALS BP 153/84 P 58 TEMP 97.6 SP02 96%RA RESP 18 PHYSICAL Mildly decreased cervical extension 2/2 cervicalgia. Full TMJ range of motion. TMD 3 finger breaths Mallampati Score 3 Dentition: full upper/lower dentures Lungs: clear throughout to auscultation Cardiac: regular rate and rhythm, no murmurs noted Spine: normal Carotid arteries: negative bruit Extremities: no edema Testing Laboratory Results 10/03/19 13:37 10/03/19 13:52 PT 11.0 Seconds (9.0-12.0) 10/03/19 13:37 INR 1.0 (0.9-1.1) 10/03/19 13:37 APTT 28.1 Seconds (21.0-31.0) 10/03/19 13:37 Blood Type AB Positive 10/03/19 13:37 Antibody Screen NEGATIVE 10/03/19 13:37 Electrocardiogram Date: 10/03/19 SB with first degree AVB at 55bpm. LAD. LVH with QRS widening. No significant change compared to 09/09/18 per robotic welding operator review.
[2019-10-03 15:43] LABS: Basophils # (auto) 0.05 K/uL (0-0.2); Basophils % (auto) 0.8 %; Eosinophils # (auto) 0.17 K/uL (0-0.5); Eosinophils % (auto) 2.6 %; Hematocrit (blood only) 46.8 % (42-52); Hemoglobin 16.2 g/dL (14.0-18.0); Immature Granulocytes # (auto) 0.02 K/uL (0.00-0.02); Immature Granulocytes % (auto) 0.3 %; Lymphocytes # (auto) 2.67 K/uL (1.2-3.4); Lymphocytes % (auto) 40.2 %; Mean Corpuscular Hemoglobin 32.5 pg (25-34); Mean Corpuscular Hgb Conc 34.6 g/dL (32-36); Mean Corpuscular Volume 93.8 fL (80-100); Mean Platelet Volume 11.6 fL (7.4-10.4); Monocytes # (auto) 0.59 K/uL (0.11-0.59); Monocytes % (auto) 8.9 %; Neutrophils # (auto) 3.15 K/uL (1.4-6.5); Neutrophils % (auto) 47.2 %; Platelet Count 186 K/uL (130-400); RDW Coefficient of Variation 13.4 % (11.5-14.5); RDW Standard Deviation 45.8 fL (36.4-46.3); Red Blood Count 4.99 M/uL (4.7-6.1); White Blood Count 6.65 K/uL (4.8-10.8)
[2019-10-03 15:55] LABS: Partial Thromboplastin Time 28.1 Seconds (21.0-31.0)
[2019-10-03 15:56] LABS: BUN Creatinine Ratio 12.4 (10-20); Calcium 8.9 mg/dl (8.5-10.1); Est GFR (African American) 70.5; Est GFR (Non-African American) 60.9; Potassium 4.6 mmol/L (3.5-5.1)
--- NOTE | 2019-10-03 18:00 | Electrocardiogram Report ---
Test Reason : Blood Pressure : / mmHG Vent. Rate : 055 BPM Atrial Rate : 055 BPM P-R Int : 202 ms QRS Dur : 116 ms QT Int : 444 ms P-R-T Axes : 001 -39 039 degrees QTc Int : 424 ms Sinus bradycardia with 1st degree AV block Left axis deviation Left ventricular hypertrophy with QRS widening Abnormal ECG When compared with ECG of 09-SEP-2018 15:33, No significant change was found Confirmed by Frederic Hernández ([id number]) on 10/03/2019 5:59:48 PM Referred By: Doe Osuna Confirmed By:Mark Hernández
[~2019-11-01 08:15] MED LIST changes: +ACETAMINOPHEN 500 MG TAB PO SCH; -ALL300 PO; -AMAN100C18 PO; -ATOR-26 PO; +BUPIVACAINE 0.5 % 5 MG/1 ML PF 10ML VIAL ONE; +BUPIVACAINE LIPOSOME/PF 266 MG, BUPIVACAINE/EPINEPHRINE 50 ML, SODIUM CHLORIDE 0.9% 30 ... INFIL SCH; -CARB25TA12 PO; +CEFAZOLIN 2000MG 2,000 MG/15 ML SYR IV SCH; -DILT180C9 PO; +FAMOTIDINE 20 MG TAB PO SCH; -FISH1CAP3 PO; -FURO-85 PO; -GABA-112 PO; +GABAPENTIN 300 MG CAP PO SCH; +LR 500ML BOLUS, THEN 15ML/HR IV SCH; +LR 60ML/HR IV SCH; +METOCLOPRAMIDE HCL 10 MG TABLET PO SCH; +MIDAZOLAM HCL 1 MG/ML 2ML VIAL ONE; -MULT-506 PO; -POTA20TA16 PO; -PRLSR20 PO; +ROPIVACAINE 0.5% 5 MG/ML 30 ML VIAL ONE; -ROSU20TA PO; -SPIR25TA PO; +TRANEXAMIC ACID 1,000 MG **IV Intra-op IV SCH; +fentaNYL citrate 100 MCG/2 ML VIAL ONE
--- NOTE | 2019-11-01 09:14 | History & Physical Bridge Note ---
Date of Service November 01, 2019 History & Physical Bridge Note I have examined the patient, reviewed the History & Physical and in the interval since the performance of the History & Physical I have noted the following changes of clinical significance: no changes noted
[2019-11-01] MEDS ORDERED: PROPOFOL IV EMULSION 10 MG/ML 20 ML VIAL IV ONE (09:38)
[2019-11-01] MEDS ORDERED: LIDOCAINE HCL 2% 2 ML VIAL/AMP(20MG/ML) INFIL ONE (09:38)
[2019-11-01] MEDS ORDERED: ONDANSETRON INJ 2 MG/ML 2 ML VIAL ONE (09:38)
[2019-11-01] MEDS ORDERED: BUPIVACAINE 0.25% 30 ML VIAL ONE (11:14)
[2019-11-01] MEDS ORDERED: BUPIVACAINE LIPOSOME 1.3% 266 MG/20 ML VIAL ONE (11:14)
[2019-11-01] MEDS ORDERED: EPINEPHrine INJ 1 MG/ML AMP ONE (11:14)
[2019-11-01] MEDS ORDERED: SODIUM CHLORIDE 0.9% PF 50 ML VIAL ONE (11:14)
[2019-11-01] MEDS ORDERED: BACITRACIN INJ 50,000 UNIT VIAL ONE (11:15)
--- NOTE | 2019-11-01 13:23 | Post Operative Brief Note ---
PG Immediate Post Op with CF Date of Surgery November 01, 2019 Pre & Post Diagnosis Operation Date: 11/01/19 10:40 Pre-Op Diagnosis: Right Knee Degenerative Joint Disease, Knee Pain Post-Op Diagnosis: Right Knee Degenerative Joint Disease, Knee Pain I identified the patient and participated in the time-out.: Yes Procedure Operation Date: 11/01/19 10:40 Actual Procedures p Right Total Knee Arthroplasty(Right) - Doe Osuna MD Surgeon Doe Osuna MD Service Planner Aracelis, PAC Estimated Blood Loss 50 Findings Consistent with Post-Op Diagnosis Fluids 1400 cc Specimens Specimen Description: A: Right knee bone and tissue Drains Lan Catheter Anesthesia Type Spinal MAC Complications none Disposition Accompanied Patient To Recovery: No Disposition: Recovery Room
--- NOTE | 2019-11-01 13:38 | Operative Report ---
Post Operative Report Pre & Post Diagnosis Operation Date: 11/01/19 10:40 Pre-Op Diagnosis: Right Knee Degenerative Joint Disease, Knee Pain Post-Op Diagnosis: Right Knee Degenerative Joint Disease, Knee Pain I identified the patient and participated in the time-out.: Yes Procedure Operation Date: 11/01/19 10:40 Actual Procedures p Right Total Knee Arthroplasty(Right) - Doe Osuna MD Surgeon Doe Osuna MD Route Supervisor Aracelis, PAC Estimated Blood Loss 50 Findings Consistent with Post-Op Diagnosis Operative findings revealed advanced right knee DJD with grade 4 disease in all 3 compartments. The most severe disease is laterally with the eburnation of the lateral femoral condyle lateral tibial plateau. He had a valgus deformity to his knee. Moderate to large knee joint effusion. Fluids 1400 cc. Specimens Right knee sent for pathology. Drains None. Anesthesia Type Spinal MAC Complications none Disposition Accompanied Patient To Recovery: No Disposition: Recovery Room Indications Patient is a 74-year-old gentleman is had a long history of right knee pain disc omfort. He does have a history of several knee arthroscopies in the past which 5 some temporary relief. Over the past 10 years he developed increased pain and discomfort in his knee. X-rays show advanced DJD most severe in the lateral compartment. He had [id number] disease. He failed conservative measures and elected proceed with total knee arthroplasty. Description of Procedure Operative implants consist of: 1. Biomet Vanguard size 75 right posterior by femoral component. 2. Biomet size 79 tibial tray. 3. 10 mm posterior stabilized polyethylene insert. 4. 34 x 8 and half all poly-patella. The patient was taken to the operating room identified and placed on the operating table supine position protectors were properly padded. IV antibiotics arrived by anesthesia team. A spinal anesthetic and abductor canal block had provided in the holding area. Lan catheter was placed in sterile fashion. Right thigh tourniquet was then placed in the right lower extremities and prepped and draped in usual sterile fashion. The right leg was elevated and exsanguinated with use of an Esmarch and the tourniquet was placed at 300 mmHg. An anterior approach to the right knee was then performed to a longitudinal incision centered over the patella. Sharp dissection was got through subcutaneous tissue down to level the extensor mechanism. A medial parapatellar arthrotomy incision was made. Some subperiosteal dissection was carried out medially. The fat pad was resected from each patella tendon. The lateral patellofemoral ligament was released. Patella was subluxated laterally and the knee was flexed. The osteophytes were taken off the distal femur. The ACL and PCL were in the recent distal femur the tibia subluxate anteriorly. The external tibial alignment jig was then placed in the interface the tibia and adjusted 12 mm medially. Proximal tibial cut was made to remove about 3 to 4 mm of bone from the medial side. The tibia was then sized to a size 79. Attention drawn the femur. The distal femur was entered with a sharp drill. Intramedullary canal was suction. A right 5 degree valgus cutting guide was placed but distal femoral cutting block was pinned in place but distal femoral cut was made to take an additional 3 mm of bone off distal femur. The femur was then sized to a size 75. We did downsize a slightly. The AP cutting block was pinned parallel to the epicondylar axis which was 4 degrees of external rotation. The anterior cut, anterior chamfer, posterior cut, posterior chamfer cuts were made. Box cutting guide was placed in just slight lateral and the box cut was made. The remnants of the medial lateral menisci were excised. The osteophytes were taken off the posterior aspect of the femur. A trial femoral component was placed. The tibial tray was pinned in maximum external rotation and the drill and stem punch were used to create defect in proximal tip for the tibial tray. Knee was then trialed and the 10 mm insert fit most appropriately. Attention drawn the patella. The patella was cleaned of all soft tissues. Patella thickness measured 24 mm in thickness was cut down to 15. Was sized to a size 34 patella. The lug holes were drilled for 34 patella. The lateral osteophyte was removed. Patella button was placed. Knee was taken through range of motion patella tracked nicely with no thumbs test. Attention drawn to place the permanent components. All trial components were removed. A bone plug was placed in the disc femur limit blood loss. A double batch Palacos G cement was mixed. A BiomCinarioguard size 75 right posterior by femoral component, size 79 tibial tray, a 10 mm posterior stabilized polyethylene insert, and a 34 x 8 and half all poly-patella then cement in place. Knees brought out into full extension until cement hardened. Final cement check was then performed. The pericapsular tissues were injected with total 100 cc of combination of 20 cc of Exparel, 30 cc normal saline, 50 cc of quarter percent Marcaine with epinephrine. Patient did receive 1 g tranexamic acid per the tech was then let down for final tourniquet time 56 minutes. Hemostasis assured use electrocautery. The extensor mechanism closed with combination 1 PDS suture #1 Vicryl suture in great fashion. The extensor mechanism checked and found to be intact with subcutaneous tissue then closed with 2 Dexon suture in a buried interrupted fashion and the skin was closed with skin sven. Leg was then cleaned dried a sterile dressed composed Xeroform, 4 x 4's, sterile cast padding, Remy bandage were applied. Patient then transferred to the recovery room in stable condition. Patient tolerated the procedure well and there were no complications. César Hsu, my physician religious assistant, was present for the entire procedure. His presence and assistance was essential to pay proper patient positioning, prepping and draping, surgical exposure, performing the technical details of the operation, placement the implants, closure of the wound, and placement of the sterile bandage. I attest to the content of the Intraoperative Record and any orders documented therein. Any exceptions are noted below.
--- NOTE | 2019-11-01 13:55 | XRay Report ---
XR knee RT 1 or 2V routine CLINICAL HISTORY: Postoperative evaluation COMPARISON: Knee radiographs October 03, 2019 FINDINGS: Alignment of the total right knee arthroplasty is anatomic. There is no periprosthetic fra cture or unexpected radiopaque foreign body. There are skin sven. IMPRESSION: Expected findings following total right knee arthroplasty. ACT 112: Negative or not required by law. Electronically signed by: Jaiden Diggs M.D. 11/01/2019 1:54 PM
[2019-11-01] MEDS ORDERED: ePHEDrine sulfate 50 MG/ML AMP IV PRN (13:56)
[2019-11-01] MEDS ORDERED: ATROPINE SULFATE 0.1 MG/ML 10ML SYR IV PRN (13:56)
--- NOTE | 2019-11-01 14:37 | Anesthesiology Progress Note ---
Date of Service November 01, 2019 Anesthesia Post Procedure Vital Signs Vital Signs: Temp Pulse Pulse Resp BP BP Pulse Ox 11/01/19 14:25 36.5 C 61 16 161/81 H 98 11/01/19 14:15 36.5 C 64 16 150/86 H 98 11/01/19 14:05 36.5 C 63 16 155/83 H 97 11/01/19 13:55 62 16 146/78 H 97 11/01/19 13:45 60 16 132/93 96 11/01/19 13:35 66 16 150/84 H 97 11/01/19 13:25 36.3 C L 70 16 152/75 H 98 11/01/19 09:42 59 L 20 161/93 H 97 11/01/19 09:09 36.5 C 73 20 177/90 H 96 Pain Intensity Right Knee: Pain Intensity: 0 Transfer of Care Handoff Completed per policy Notes Mental Status: alert / awake / arousable and participated in evaluation Patient Amnestic to Procedure: Yes Nausea / Vomiting: adequately controlled Pain: adequately controlled Airway Patency, RR, SpO2: stable & adequate BP & HR: stable & adequate Hydration State: stable & adequate Neuraxial Anesthesia: was administered and sensory block is resolving Anesthetic Complications: no major complications apparent
[2019-11-01] MEDS ORDERED: HYDROmorphone INJ 0.5 MG/0.5 ML SYR IV PRN (15:07)
[2019-11-01] MEDS ORDERED: NALOXONE HCL 0.4 MG/1 ML VIAL/CARP IV PRN (15:07)
[2019-11-01] MEDS ORDERED: MAGNESIUM HYDROXIDE SUSP 30 ML UDC PO PRN (15:07)
[2019-11-01] MEDS ORDERED: bisacodyL 10 MG SUPP PR PRN (15:07)
[2019-11-01] MEDS ORDERED: ONDANSETRON INJ 2 MG/ML 2 ML VIAL IV PRN (15:07)
[2019-11-01] MEDS ORDERED: ALUMINUM/MAGNESIUM SUSP 30 ML UDC PO PRN (15:07)
[2019-11-01] MEDS ORDERED: FAMOTIDINE 20 MG TAB PO PRN (15:07)
[2019-11-01] MEDS ORDERED: SENNA 8.6 MG TAB PO PRN (15:07)
[2019-11-01] MEDS ORDERED: TAMSULOSIN HCL 0.4 MG CAP PO PRN (15:07)
[2019-11-01] MEDS ORDERED: METOCLOPRAMIDE HCL INJ 5 MG/ML 2 ML VIAL IV PRN (15:07)
[2019-11-01] MEDS ORDERED: OMEGA-3 (PURIFIED FISH OIL) 1 GM CAP PO SCH (15:15)
[2019-11-01] MEDS ORDERED: FUROSEMIDE 20 MG TAB PO SCH (16:00)
[2019-11-01] MEDS: ACETAMINOPHEN 500 MG TAB PO SCH ×2 (16:00→21:42)
[2019-11-01] MEDS: POTASSIUM CHLORIDE 20 MEQ TABCR PO SCH ×2 (16:00→19:44)
[2019-11-01] MEDS: SODIUM CHLORIDE 0.9% 1000ML 1,000 ML IV SCH ×2 (16:29→23:22)
[2019-11-01] MEDS: ASCORBIC ACID 500 MG TAB PO SCH (16:31)
[2019-11-01] MEDS: KETOROLAC TROMETHAMINE 15 MG/ML VIAL IV SCH ×2 (16:32→21:43)
[2019-11-01] MEDS ORDERED: TRANEXAMIC ACID / 0.7% NACL 1,000 MG/100 ML BAG IV SCH (19:27)
[2019-11-01] MEDS: CARBIDOPA/LEVODOPA 50/200MG EXT REL TAB PO SCH (19:42)
[2019-11-01] MEDS: dilTIAZem HCL 180 MG CAPCR PO SCH (19:42)
[2019-11-01] MEDS: GABAPENTIN 300 MG CAP PO SCH (19:43)
[2019-11-01] MEDS: ATORVASTATIN 40 MG TAB PO SCH (19:44)
[2019-11-01] MEDS: DOCUSATE SODIUM 100 MG CAP PO SCH (19:44)
[2019-11-01] MEDS: ASPIRIN 81 MG ECTAB PO SCH (19:46)
[2019-11-01] MEDS: AMANTADINE HCL 100 MG CAPSULE PO SCH (19:47)
[2019-11-01] MEDS: SENNA 8.6 MG TAB PO SCH (19:47)
[2019-11-01] MEDS: CEFAZOLIN 2000MG 2,000 MG/15 ML SYR IV SCH (19:52)
[2019-11-02] MEDS: CEFAZOLIN 2000MG 2,000 MG/15 ML SYR IV SCH (04:13)
[2019-11-02] MEDS: KETOROLAC TROMETHAMINE 15 MG/ML VIAL IV SCH ×4 (04:13→21:25)
[2019-11-02] MEDS: ACETAMINOPHEN 500 MG TAB PO SCH ×3 (05:52→21:26)
[2019-11-02] MEDS: CARBIDOPA/LEVODOPA 25/100MG TAB PO SCH ×2 (05:54→10:49)
[2019-11-02 06:23] LABS: Hematocrit (blood only) 39.1 % (42-52); Hemoglobin 13.5 g/dL (14.0-18.0); Mean Corpuscular Hemoglobin 32.2 pg (25-34); Mean Corpuscular Hgb Conc 34.5 g/dL (32-36); Mean Corpuscular Volume 93.3 fL (80-100); Mean Platelet Volume 11.5 fL (7.4-10.4); Platelet Count 162 K/uL (130-400); RDW Coefficient of Variation 13.4 % (11.5-14.5); RDW Standard Deviation 46.1 fL (36.4-46.3); Red Blood Count 4.19 M/uL (4.7-6.1); White Blood Count 8.34 K/uL (4.8-10.8)
[2019-11-02 06:49] LABS: BUN Creatinine Ratio 15.2 (10-20); Creatinine Clr Calc Pharmacy 90.8 ml/min; Est GFR (African American) 89.4; Est GFR (Non-African American) 77.1; Potassium 3.7 mmol/L (3.5-5.1)
[2019-11-02] MEDS ORDERED: GABAPENTIN 300 MG CAP PO SCH (09:00)
[2019-11-02] MEDS: DULOXETINE HCL 30 MG CAP PO SCH (09:08)
[2019-11-02] MEDS: dilTIAZem HCL 180 MG CAPCR PO SCH ×2 (09:08→21:30)
[2019-11-02] MEDS: ASPIRIN 81 MG ECTAB PO SCH ×2 (09:08→21:25)
[2019-11-02] MEDS: POTASSIUM CHLORIDE 20 MEQ TABCR PO SCH ×3 (09:08→21:25)
[2019-11-02] MEDS: GABAPENTIN 300 MG CAP PO SCH ×3 (09:09→21:25)
[2019-11-02] MEDS: MULTIVITAMIN TAB PO SCH (09:09)
[2019-11-02] MEDS: PANTOprazole 40 MG TAB PO SCH (09:09)
[2019-11-02] MEDS: allopurinoL 300 MG TAB PO SCH (09:09)
[2019-11-02] MEDS: AMANTADINE HCL 100 MG CAPSULE PO SCH ×2 (09:10→21:25)
[2019-11-02] MEDS: SPIRONOLACTONE 25 MG TAB PO SCH (09:10)
[2019-11-02] MEDS: ASCORBIC ACID 500 MG TAB PO SCH ×2 (09:10→15:49)
[2019-11-02] MEDS: DOCUSATE SODIUM 100 MG CAP PO SCH ×2 (09:10→21:25)
[2019-11-02] MEDS: TRAMADOL HCL 50 MG TABLET PO PRN ×2 (10:51→17:01)
--- NOTE | 2019-11-02 14:44 | Progress Notes ---
DATE: 11/02/2019 SUBJECTIVE: A 74-year-old gentleman postop day 1 from a right knee replacement. He is doing pretty well. Knees have been pretty painful today, particularly with therapy. No other complaints. No chest pain or shortness of breath. Not feeling dizzy or lightheaded. OBJECTIVE: VITAL SIGNS: Temperature is 36.7. Vital signs stable. GENERAL: Shows a pleasant, middle-aged male. He is sitting up at a bedside chair, looks pretty comfortable this afternoon. LUNGS: Clear to auscultation. HEART: Has a regular rate and rhythm. ABDOMEN: Soft, nontender and nondistended. EXTREMITIES: Grossly neurovascularly intact except as follows: Examination of the right leg reveals the dressing to be clean, dry, and intact. He can dorsiflex and plantarflex his foot appropriately. He is neurologically intact. LABORATORY DATA: Hemoglobin 13.5. Hematocrit 39.1. Electrolytes are stable. ASSESSMENT: A 74-year-old gentleman postoperative day 1 from right knee replacement, doing reasonably well. Moderate amount of pain, but nothing out of the ordinary. PLAN: 1. DVT prophylaxis including thigh-high TEDs, SCDs, and aspirin twice a day. 2. PT/OT. Weight bear as tolerated. Right total knee protocol. 3. Pain control, doing pretty well with current pain regimen. 4. Disposition: Plan to discharge to home with some home health once adequately recovered and medically stable.
[2019-11-02] MEDS ORDERED: CARBIDOPA/LEVODOPA 25/100MG TAB PO SCH (16:00)
[2019-11-02] MEDS: SENNA 8.6 MG TAB PO SCH (21:24)
[2019-11-02] MEDS: CARBIDOPA/LEVODOPA 50/200MG EXT REL TAB PO SCH (21:24)
[2019-11-02] MEDS: ATORVASTATIN 40 MG TAB PO SCH (21:25)
[2019-11-03] MEDS: KETOROLAC TROMETHAMINE 15 MG/ML VIAL IV SCH ×2 (03:50→09:00)
[2019-11-03] MEDS: ACETAMINOPHEN 500 MG TAB PO SCH (05:44)
[2019-11-03] MEDS: CARBIDOPA/LEVODOPA 25/100MG TAB PO SCH ×2 (05:44→11:28)
--- NOTE | 2019-11-03 07:43 | Progress Notes ---
DATE: 11/03/2019 SUBJECTIVE: A 74-year-old gentleman postop day 2 from right knee replacement. He is doing pretty well. Pain is a little bit better this morning. No chest pain or shortness of breath. Not feeling dizzy or lightheaded. Ready to go home. OBJECTIVE: VITAL SIGNS: Temperature 36.7. Vital signs stable. GENERAL: Shows a large middle-aged male. He was getting up and ready to walk to the bathroom with his walker when I visited him this morning. EXTREMITIES: Examination of the right leg reveals the dressing to be clean, dry and intact. Minimal drainage. Some moderate swelling. Calf is soft and supple. He is neurologically intact. ASSESSMENT: A 74-year-old gentleman postop day 2 from right knee replacement, doing well. Pain is controlled. PLAN: 1. DVT prophylaxis including thigh-high TEDs, SCDs, and aspirin twice a day. 2. PT/OT. Weightbear as tolerated. Right total knee protocol. 3. Pain control, doing well with current pain regimen. 4. Disposition: Plan to discharge to home with some home health after therapy today.
[2019-11-03] MEDS: TRAMADOL HCL 50 MG TABLET PO PRN (08:53)
[2019-11-03] MEDS: SPIRONOLACTONE 25 MG TAB PO SCH (08:54)
[2019-11-03] MEDS: MULTIVITAMIN TAB PO SCH (08:54)
[2019-11-03] MEDS: GABAPENTIN 300 MG CAP PO SCH (08:54)
[2019-11-03] MEDS: AMANTADINE HCL 100 MG CAPSULE PO SCH (08:55)
[2019-11-03] MEDS: DULOXETINE HCL 30 MG CAP PO SCH (08:55)
[2019-11-03] MEDS: ASPIRIN 81 MG ECTAB PO SCH (08:55)
[2019-11-03] MEDS: dilTIAZem HCL 180 MG CAPCR PO SCH (08:55)
[2019-11-03] MEDS: DOCUSATE SODIUM 100 MG CAP PO SCH (08:55)
[2019-11-03] MEDS: PANTOprazole 40 MG TAB PO SCH (08:55)
[2019-11-03] MEDS: allopurinoL 300 MG TAB PO SCH (08:56)
[2019-11-03] MEDS: POTASSIUM CHLORIDE 20 MEQ TABCR PO SCH (08:56)
[2019-11-03] MEDS: ASCORBIC ACID 500 MG TAB PO SCH (08:56)
--- NOTE | 2019-11-06 07:21 | Discharge Summary ---
Date of Service November 06, 2019 Admission HPI Per Admitting Provider Documented in the H & P Admission Exam (Per Admitting) Constitutional Documented in the H & P Discharge Data Consultations 11/01/19 15:07 Consult Case Management - Discharge Planning Routine Procedures Performed Operation Date: 11/01/19 10:40 Actual Procedures p Right Total Knee Arthroplasty(Right) - Doe Osuna MD Hospital Course (1) Status post total right knee replacement: This patient is a 74 year old male admitted on 11/01/19 and underwent total knee replacement. He tolerated the procedure well and there were no complications. Transferred to the PACU post op and later to the orthopedic floor for further care. He was given ancef for antibiotic prophylaxis. He was also given GUERLINE stockings, SCDs, and aspirin for DVT prophylaxis. Hemoglobin, hematocrit, and vital signs were monitored during his hospital stay and remained stable. Did not require any blood transfusions. There were no complications during his hospital stay. By post op day #2 the patient was tolerating a regular diet, pain was reasonably controlled with oral pain medicine, and he was participating in physical therapy. On post op day #2 the patient was discharged home and set up with home health care. He was given printed discharge instructions including prescriptions for extra strength tylenol, aspirin, and tramadol. Continue physical therapy, weight bearing as tolerated. Continue GUERLINE stockings. Follow up approximately 2 weeks post op or sooner if there are problems or concerns. Coding Level of Care Code None Diagnoses Status post total right knee replacement Z96.651
== END 2019-11-03 12:38 | disposition home health service (06) ==
LOC: 3E 08:15 → ASU 08:15

== ENCOUNTER 2021-03-06 15:33 | Observation (INO) ==
[2021-03-06] MEDS ORDERED: AMPICILLIN/SULBACTAM SOD 3,000 MG in 0.9 % SODIUM CHLORIDE 100 ML IV STA (18:20)
--- NOTE | 2021-03-06 18:26 | Emergency Department Note ---
History of Present Illness General Chief complaint: Facial Injury/Pain Stated complaint: SWOLLEN CHEEK, [facility] Time Seen by Provider: 03/06/21 18:17 History of Present Illness Maximum Pain Intensity: 7 75-year-old male presents to the ED with a chief complaint of right-sided facial swelling in the area just beneath the right ear and angle of the jaw. He has had the symptoms for several days. Is progressively worsening and has become very tender and painful. It is worse with palpation. Denies any fevers. No nausea or vomiting. He has had something similar in the past related to his saliva gland. Home Medications Medication Instructions Recorded Confirmed Type amantadine HCl 100 mg tablet 100 mg PO BID 09/09/18 04/26/20 History atorvastatin 80 mg tablet (Lipitor) 40 mg PO HS 09/09/18 01/01/21 History carbidopa 25 mg-levodopa 100 mg 2 tab PO QPM 09/09/18 01/01/21 History tablet carbidopa 25 mg-levodopa 100 mg 3 tab PO BID 09/09/18 01/01/21 History tablet carbidopa ER 50 mg-levodopa 200 mg 1 tab PO HS 09/09/18 01/01/21 History tablet,extended release diltiazem HCl 180 mg 180 mg PO BID 09/09/18 01/01/21 History capsule,extended release 24 hr (Cardizem CD) furosemide 20 mg tablet 20 mg PO Q OTHER DAY 09/09/18 01/01/21 History gabapentin 300 mg capsule 900 mg PO HS 09/09/18 01/01/21 History omeprazole 20 mg capsule,delayed 40 mg PO QAM 09/09/18 01/01/21 History release potassium chloride 20 mEq 20 meq PO TID 09/09/18 01/01/21 History tablet,extended release spironolactone 25 mg tablet 25 mg PO QAM 09/09/18 01/01/21 History (Aldactone) Raquel Walker #1 ea 09/22/19 02/13/20 Rx famotidine 20 mg tablet 20 mg PO QAM PRN 09/27/19 01/01/21 History ht-7-rlw-epa-fish oil-vit D3 300 1 cap PO Q2D 09/27/19 01/01/21 History mg-1,000 mg-1,000 unit capsule (Fish Oil-Vit D3) Arik Miranda #1 ea 11/17/19 02/13/20 Rx gabapentin 300 mg capsule 300 mg PO ONCE cap 03/28/20 01/01/21 History acetaminophen 500 mg tablet 500 mg PO QID PRN 01/01/21 01/01/21 History allopurinol 300 mg tablet 300 mg PO DAILY 01/01/21 01/01/21 History aspirin 81 mg capsule 81 mg PO BID 01/01/21 01/01/21 History bismuth subsalicylate 262 mg/15 mL 0 mg PO QID 01/01/21 01/01/21 History oral suspension cholecalciferol (vitamin D3) 10 10 mcg PO DAILY 01/01/21 01/01/21 History mcg (400 unit) tablet duloxetine 30 mg capsule,delayed 30 mg PO QAM 01/01/21 01/01/21 History release Allergies Allergy/AdvReac Type Severity Reaction Status Date / Time simvastatin [From Zocor] AdvReac Intermediate Fatigue Verified 01/01/21 14:21 Past Med/Surg History Medical History Acid reflux controlled Arthritis Chronic back pain HLD (hyperlipidemia) Hypertension Neuropathy Parkinson's disease follows with [facility] Prostate cancer s/p prostatectomy (2000), no chemo/no XRT SBO (small bowel obstruction) several years ago during admission for c. diff, no surgical intervention Surgical History History of colonoscopy History of esophagogastroduodenoscopy (EGD) History of prostatectomy 2000 History of tooth extraction History of total knee replacement RT Hx of appendectomy Hx of cholecystectomy Family History Son Family history of diabetes mellitus Daughter Family history of diabetes mellitus Other Diabetes No family history of adverse response to anesthesia Social History Smoking Status: Never smoker Second Hand Exposure: Yes (FATHER SMOKED); Hx Alcohol Use: Yes Alcohol type: beer Preferred Language: Tajik Communication Ability: Effective Top Lifter Required: No Beliefs That Will Affect Care: None marital status: Current Living Situation: Spouse Feels Safe at Home: Yes Assistive Devices: Denture - Upper, Denture - Lower, Glasses and Walker Review of Systems A total of 10 systems reviewed and were otherwise negative Physical Exam Vital Signs Vital Signs - 24 hr 03/06/21 15:39 03/06/21 19:35 Temperature 36.8 C Temperature Source Oral Pulse Rate 86 Pulse Rate [Finger] 74 Pulse Rhythm Regular Pulse Strength Normal Respiratory Rate 18 20 Respiratory Effort / Characteristics Non-Labored Spontaneous Non-Labored Spontaneous Respiratory Depth Normal Normal Respiratory Pattern Regular Regular Blood Pressure 156/97 H Blood Pressure [Left Arm] 166/87 H Blood Pressure Mean 116 Blood Pressure Mean [Left Arm] 113 Blood Pressure Position Sitting Pulse Oximetry 94 97 Oxygen Delivery Method Room Air Room Air Sepsis Recent Fever Within 48 Hours No Sepsis New/Unexplained Change in Mental Status No Sepsis Action Taken by Nursing No Action Required CONSTITUTIONAL/VITAL SIGNS: Reviewed / noted above. GENERAL: Non-toxic in appearance. INTEGUMENTARY: Warm, dry, and Home. HEAD: Normocephalic. EYES: without scleral icterus or trauma. ENT/OROPHARYNX: clear and moist. The patient has moderate swelling to the right jaw angle and the area of the masseters. This is tender and erythematous. There was a tiny bit of pus seen at the Stensen's duct but not enough was expressed to could be cultured LYMPHADENOPATHY/NECK: Is supple without lymphadenopathy or meningismus. RESPIRATORY: Clear to auscultation bilaterally. No increased work of breathing. CARDIOVASCULAR: Regular rate and rhythm. GI/ABDOMEN: Soft and nontender. No organomegaly or pulsatile mass. EXTREMITIES: Warm and well perfused. NEUROLOGICAL: Intact without focal deficits. PSYCHIATRIC: normal affect. MUSCULOSKELETAL: Normally developed with good muscle tone. TRIAGE NURSING DOCUMENTATION REVIEWED. Course Administered Medications Discontinued Medications Ampicillin Sodium/Sulbactam Sodium 3,000 mg/ Sodium Chloride 108 mls @ 200 mls/hr IV NOW STA; Protocol Stop: 03/06/21 18:52 Last Infusion: 03/06/21 19:35 Dose: 0 mls/hr Documented by: [id number] Admin: 03/06/21 18:52 Dose: 200 mls/hr Documented by: [id number] Ioversol (Optiray 320 100ml) 95 ml IV ONCE ONE Stop: 03/06/21 19:17 Last Admin: 03/06/21 19:20 Dose: 95 ml Documented by: [id number] Medical Decision Making Differential Diagnosis Differential includes parotitis, cellulitis, abscess, cancer Medical Records Attestation: I reviewed the patient's medical records. Home Medications Current Medication List: was personally reviewed by me Laboratory Data Attestation: I reviewed the patient's lab results. Result diagrams: 03/06/21 18:35 03/06/21 18:35 Lab Results 03/06/21 03/06/21 Range/Units 18:35 18:35 WBC 15.55 H (4.8-10.8) K/uL RBC 5.08 (4.7-6.1) M/uL Hgb 16.7 (14.0-18.0) g/dL Hct 48.0 (42-52) % MCV 94.5 (80-100) fL MCH 32.9 (25-34) pg MCHC 34.8 (32-36) g/dL RDW Std Deviation 46.3 (36.4-46.3) fL RDW Coeff of Marek 13.4 (11.5-14.5) % Plt Count 181 (130-400) K/uL MPV 11.4 H (7.4-10.4) fL Immature Gran % (Auto) 0.3 % Neut % (Auto) 77.3 % Lymph % (Auto) 10.4 % Erie % (Auto) 11.3 % Eos % (Auto) 0.5 % Baso % (Auto) 0.2 % Neut # (Auto) 12.02 H (1.4-6.5) K/uL Lymph # (Auto) 1.61 (1.2-3.4) K/uL Erie # (Auto) 1.76 H (0.11-0.59) K/uL Eos # (Auto) 0.08 (0-0.5) K/uL Baso # (Auto) 0.03 (0-0.2) K/uL Immature Gran # (Auto) 0.05 H (0.00-0.02) K/uL Sodium 134 L (136-145) mmol/L Potassium 3.9 (3.5-5.1) mmol/L Chloride 100 (98-107) mmol/L Carbon Dioxide 28 (21-32) mmol/L Anion Gap 6.0 (3-11) BUN 12 (7-18) mg/dl Creatinine 1.14 (0.6-1.4) mg/dl Est Cr Clr Drug Dosing 72.2 ml/min Est GFR ( Amer) 73.0 ml/min Est GFR (Non-Af Amer) 63.0 ml/min BUN/Creatinine Ratio 10.2 (10-20) Glucose 110 H (70-99) mg/dl Calcium 9.0 (8.5-10.1) mg/dl Imaging Data Radiologist's Impression: Soft Tissue Neck CT 03/06/21 18:20 CT SCAN OF THE NECK WITH IV CONTRAST CLINICAL HISTORY: Right neck/parotid swelling COMPARISON STUDY: No priors. TECHNIQUE: Following the IV administration of 95 cc of Optiray 320, CT scan of the soft tissues of the neck was performed from the skull base to the upper chest. Images are reviewed in the axial, sagittal, and coronal planes. IV contrast was administered without complication. A dose lowering technique was utilized adhering to the principles of ALARA. CT DOSE: 380.06 mGy.cm FINDINGS: Pharynx: The pharyngeal soft tissues are normal in appearance. The pharyngeal airway is widely patent. There is no evidence of mass lesion. The vocal cords are symmetric. The parapharyngeal fat is well maintained. The prevertebral/retropharyngeal soft tissues are within normal limits. The epiglottis is normal. Lymphadenopathy: Prominent right cervical chain lymph nodes are likely reactive Thyroid: Normal in size and attenuation. Salivary glands: The right parotid gland is enlarged and heterogeneous with surrounding infiltration and fluid. Fluid tracks inferiorly along the sternocleidomastoid muscle. This is deep to the marker at site of interest and the appearance is typical for parotitis. No calcified sialoliths are identified in the parotid duct is normal in caliber. No organized fluid collection is seen suggest abscess. The left parotid gland and the submandibular glands are normal in appearance. Brain parenchyma: The visualized brain parenchyma at the skull base is normal in appearance. Vascular structures: The carotid arteries are patent. There is atherosclerotic calcification of the carotid bulbs. Skeletal structures: The skeletal structures are osteopenic. Imaged portions of the calvarium at the skull base are within normal limits. The cervical spine appears intact noting multilevel spondylosis. No lytic or blastic lesion is seen. Sinuses and mastoids: The visualized paranasal sinuses are clear. The mastoid air cells are well pneumatized. Orbits: The bony orbits are intact. Orbital contents are normal as visualized. Lung apices: Apical scarring is noted. Visualized apical upper lobe lung parenchyma is otherwise clear as imaged. IMPRESSION: Findings are consistent with right-sided parotitis. This is deep to the marker at the site of interest and clinical correlation will be required. ACT 112: Negative or not required by law. Electronically signed by: Ti Mathews M.D. 03/06/2021 7:36 PM MDM Narrative Patient presents with several days of right facial swelling in the area of the parotid gland. Vital signs are stable. He is afebrile. White blood cell count is 15,000. CT scan suggest parotitis. Based on the exam of significant tenderness in the right parotid gland as well as a tiny bit of pus at the Sten sen's duct and his leukocytosis, I suspect that this could be related to a suppurative proctitis. The patient was treated with IV Unasyn. Will be seen by the hospitalist for further inpatient evaluation and care. Impression & Plan Acute suppurative parotitis Discharge Plan Visit Data Chief Complaint: Facial Injury/Pain Stated Complaint: SWOLLEN CHEEK[facility] Provider: Alfredito Cowan Discharge Problem: Acute suppurative parotitis Patient Disposition: Being Evaluated by Hospitalist Forms Stand Alone Forms: [facility] RxCost Containment Prescriptions Prescriptions: No Action (DME) Raquel Guallpa [facility] See Rx Instructions .ROUTE .MEDSUPPLY Qty: 1 RF: 0 (DME) Arik Villa See Rx Instructions .MEDSUPPLY Qty: 1 RF: 0 famotidine 20 mg Tablet 20 mg PO QAM PRN (Reason: Indigestion) RF: 0 [id number]-1-[id number]-epa-fish oil-vit D3 [Fish Oil-Vit D3] 300-1,000-1,000 mg-mg-unit Capsule 1 cap PO Q2D RF: 0 atorvastatin [Lipitor] 80 mg tablet 40 mg PO HS RF: 0 diltiazem HCl [Cardizem CD] 180 mg capsule,extended release 24hr 180 mg PO BID RF: 0 carbidopa-levodopa 50-200 mg tablet extended release 1 tab PO HS RF: 0 gabapentin 300 mg capsule 900 mg PO HS RF: 0 carbidopa-levodopa 25-100 mg tablet 2 tab PO QPM RF: 0 carbidopa-levodopa 25-100 mg tablet 3 tab PO BID RF: 0 amantadine HCl 100 mg Tablet 100 mg PO BID RF: 0 spironolactone [Aldactone] 25 mg Tablet 25 mg PO QAM RF: 0 omeprazole 20 mg Capsule,Delayed Release(Dr/Ec) 40 mg PO QAM RF: 0 furosemide 20 mg Tablet 20 mg PO Q OTHER DAY RF: 0 potassium chloride 20 mEq Tablet Extended Release 20 meq PO TID RF: 0 gabapentin 300 mg capsule 300 mg PO ONCE RF: 0 allopurinol 300 mg tablet 300 mg PO DAILY RF: 0 acetaminophen 500 mg Tablet 500 mg PO QID PRN (Reason: Pain) RF: 0 bismuth subsalicylate 262 mg/15 mL Suspension 0 mg PO QID RF: 0 cholecalciferol (vitamin D3) 10 mcg (400 unit) Tablet 10 mcg PO DAILY RF: 0 duloxetine 30 mg capsule,delayed release(DR/EC) 30 mg PO QAM RF: 0 aspirin 81 mg Capsule 81 mg PO BID RF: 0 Referrals Referrals: Liliya Hinkle, RADHA [Primary Care Provider] -
[2021-03-06 18:48] LABS: Basophils # (auto) 0.03 K/uL (0-0.2); Basophils % (auto) 0.2 %; Eosinophils # (auto) 0.08 K/uL (0-0.5); Eosinophils % (auto) 0.5 %; Hemoglobin 16.7 g/dL (14.0-18.0); Immature Granulocytes # (auto) 0.05 K/uL (0.00-0.02); Immature Granulocytes % (auto) 0.3 %; Lymphocytes # (auto) 1.61 K/uL (1.2-3.4); Lymphocytes % (auto) 10.4 %; Mean Corpuscular Hemoglobin 32.9 pg (25-34); Mean Corpuscular Hgb Conc 34.8 g/dL (32-36); Mean Corpuscular Volume 94.5 fL (80-100); Mean Platelet Volume 11.4 fL (7.4-10.4); Monocytes # (auto) 1.76 K/uL (0.11-0.59); Monocytes % (auto) 11.3 %; Neutrophils # (auto) 12.02 K/uL (1.4-6.5); Neutrophils % (auto) 77.3 %; Platelet Count 181 K/uL (130-400); RDW Coefficient of Variation 13.4 % (11.5-14.5); RDW Standard Deviation 46.3 fL (36.4-46.3); Red Blood Count 5.08 M/uL (4.7-6.1); White Blood Count 15.55 K/uL (4.8-10.8)
[2021-03-06 19:07] LABS: BUN Creatinine Ratio 10.2 (10-20); Creatinine Clr Calc Pharmacy 72.2 ml/min; Potassium 3.9 mmol/L (3.5-5.1)
[2021-03-06] MEDS ORDERED: OPTIRAY 320 100ml IV ONE (19:16)
--- NOTE | 2021-03-06 19:37 | CT Scan Report ---
CT SCAN OF THE NECK WITH IV CONTRAST CLINICAL HISTORY: Right neck/parotid swelling COMPARISON STUDY: No priors. TECHNIQUE: Following the IV administration of 95 cc of Optiray 320, CT scan of the soft tissues of th e neck was performed from the skull base to the upper chest. Images are reviewed in the axial, sagitt al, and coronal planes. IV contrast was administered without complication. A dose lowering techniqu e was utilized adhering to the principles of ALARA. CT DOSE: 380.06 mGy.cm FINDINGS: Pharynx: The pharyngeal soft tissues are normal in appearance. The pharyngeal airway is widely patent . There is no evidence of mass lesion. The vocal cords are symmetric. The parapharyngeal fat is well maintained. The prevertebral/retropharyngeal soft tissues are within normal limits. The epiglottis is normal. Lymphadenopathy: Prominent right cervical chain lymph nodes are likely reactive Thyroid: Normal in size and attenuation. Salivary glands: The right parotid gland is enlarged and heterogeneous with surrounding infiltration and fluid. Fluid tracks inferiorly along the sternocleidomastoid muscle. This is deep to the marker a t site of interest and the appearance is typical for parotitis. No calcified sialoliths are identifie d in the parotid duct is normal in caliber. No organized fluid collection is seen suggest abscess. Th e left parotid gland and the submandibular glands are normal in appearance. Brain parenchyma: The visualized brain parenchyma at the skull base is normal in appearance. Vascular structures: The carotid arteries are patent. There is atherosclerotic calcification of the c arotid bulbs. Skeletal structures: The skeletal structures are osteopenic. Imaged portions of the calvarium at the skull base are within normal limits. The cervical spine appears intact noting multilevel spondylosis. No lytic or blastic lesion is seen. Sinuses and mastoids: The visualized paranasal sinuses are clear. The mastoid air cells are well pneu matized. Orbits: The bony orbits are intact. Orbital contents are normal as visualized. Lung apices: Apical scarring is noted. Visualized apical upper lobe lung parenchyma is otherwise nimisha r as imaged. IMPRESSION: Findings are consistent with right-sided parotitis. This is deep to the marker at the si te of interest and clinical correlation will be required. ACT 112: Negative or not required by law. Electronically signed by: Ti Mathews M.D. 03/06/2021 7:36 PM
--- NOTE | 2021-03-06 21:48 | History & Physical Report ---
Date of Service March 06, 2021 Assessment & Plan (1) Acute suppurative parotitis: Plan: 75yo Male presents with right sided facial pain and swelling ongoing 2 days. PMH parkinson's, HTN HLD neuropathy GERD prostate cancer s/p prostectomy. ()Parotitis -R sided facial swelling 2 days, note 7cm and 5cm diameter lumps -different from his usual yearly blocked salivary gland, not improved with ice -WBC 15.55, no fever -CT Neck: Findings are consistent with right-sided parotitis. This is deep to the marker at the site of interest and clinical correlation will be required. -given unasyn 3g IV in ED -continue unasyn 3g IV q6h, if demonstrate clinical improvement can switch to amoxicillin-clavulanate 875/125 PO BID, total 10 days if therapy against MRSA indicated, add vancomycin or linezolid -trend cbc, bmp ()Parkinsons -continue carbidopa/levodopa, amantadine ()Neuropathy -continue gabapentin ()HTN -continue diltiazem, ASA, spironolactone ()HLD -continue atorvastatin ()Hx. Gout -continue allopurinol ()Chronic back pain -continue duloxetine ()GERD -continue omeprazole FENa: regular Code Status: full DVT PPX: SCDs Dispo: med/surg Rylee Condon Do PGY 1, FCM (2) Acid reflux: (3) Parkinson's disease: (4) HLD (hyperlipidemia): (5) Hypertension: (6) Back pain: History of Present Illness Chief Complaint: Parotitis Primary Care Provider: Liliya Hinkle PA-C 75yo Male presents with right sided facial pain and swelling ongoing 2 days. PMH parkinson's, HTN HLD neuropathy GERD prostate cancer s/p prostectomy. Patient seen at bedside calm comfortable cooperative, here with . He states he thought it was his yearly case of salivary gland swelling that he usually marco ats with ice pack, this time it did not improve so he came to ED. States the swelling came within the course of a day, painful to the touch. He denies sick contacts, lives with his and 2 cats, COVID and flu vaccinated. He states the swelling causes difficulty swallowing but no SOB, fever/chills, nausea/vomitting. Patient denies smoking, drinks two 12oz beers 4-5 days a week, drinks 1c coffee daily. Occasionally uses Aleve. States he has some difficulty walking due to his parkinsons. Patient expressed understanding of his current condition, hopes he can get his COVID booster this coming Thursday. Allergies Allergy/AdvReac Type Severity Reaction Status Date / Time simvastatin [From Zocor] AdvReac Intermediate Fatigue Verified 03/06/21 21:53 lisinopril AdvReac Cough Verified 03/06/21 21:52 Home Medications Medication Instructions Recorded Confirmed Type amantadine HCl 100 mg tablet 100 mg PO BID 09/09/18 03/06/21 History atorvastatin 80 mg tablet (Lipitor) 40 mg PO HS 09/09/18 03/06/21 History carbidopa 25 mg-levodopa 100 mg 2 tab PO QPM 09/09/18 03/06/21 History tablet carbidopa 25 mg-levodopa 100 mg 3 tab PO BID 09/09/18 03/06/21 History tablet carbidopa ER 50 mg-levodopa 200 mg 1 tab PO HS 09/09/18 03/06/21 History tablet,extended release diltiazem HCl 180 mg 180 mg PO BID 09/09/18 03/06/21 History capsule,extended release 24 hr (Cardizem CD) gabapentin 300 mg capsule 900 mg PO HS 09/09/18 03/06/21 History omeprazole 20 mg capsule,delayed 40 mg PO QAM 09/09/18 03/06/21 History release potassium chloride 20 mEq 20 meq PO TID 09/09/18 03/06/21 History tablet,extended release spironolactone 25 mg tablet 25 mg PO QAM 09/09/18 03/06/21 History (Aldactone) Wheeled Walker #1 ea 09/22/19 03/06/21 Rx famotidine 20 mg tablet 20 mg PO BID PRN 09/27/19 03/06/21 History qp-9-mhg-epa-fish oil-vit D3 300 1 cap PO Q2D 09/27/19 03/06/21 History mg-1,000 mg-1,000 unit capsule (Fish Oil-Vit D3) Arik Miranda #1 ea 11/17/19 03/06/21 Rx gabapentin 300 mg capsule 300 mg PO BID cap 03/28/20 03/06/21 History acetaminophen 500 mg tablet 500 mg PO QID PRN 01/01/21 03/06/21 History allopurinol 300 mg tablet 300 mg PO DAILY 01/01/21 03/06/21 History aspirin 81 mg capsule 81 mg PO BID 01/01/21 03/06/21 History cholecalciferol (vitamin D3) 10 10 mcg PO DAILY 01/01/21 03/06/21 History mcg (400 unit) tablet duloxetine 30 mg capsule,delayed 30 mg PO QAM 01/01/21 03/06/21 History release torsemide 10 mg tablet 10 mg PO Q OTHER DAY 03/06/21 03/06/21 History Past Med/Surg History Medical History Acid reflux controlled Arthritis Chronic back pain HLD (hyperlipidemia) Hypertension Neuropathy Parkinson's disease follows with [facility] Prostate cancer s/p prostatectomy (2000), no chemo/no XRT SBO (small bowel obstruction) several years ago during admission for c. diff, no surgical intervention Surgical History History of colonoscopy History of esophagogastroduodenoscopy (EGD) History of prostatectomy 2000 History of tooth extraction History of total knee replacement RT Hx of appendectomy Hx of cholecystectomy Family History Son Family history of diabetes mellitus Daughter Family history of diabetes mellitus Other Diabetes No family history of adverse response to anesthesia Social History Smoking Status: Former smoker Second Hand Exposure: Yes (FATHER SMOKED); Do You Dip or Chew Tobacco: No; Hx Alcohol Use: Yes Alcohol type: beer Hx Substance Use: No Preferred Language: Niuean Communication Ability: Effective Study Abroad Advisor Required: No Beliefs That Will Affect Care: None marital status: Current Living Situation: Spouse How many Children do You have: 1 Other Information That Helps Us Care for You: No Feels Safe at Home: Yes Safety Concerns: Feels Safe At This Time Assistive Devices: Cane Review of Systems Review of Systems: difficulty swallowing Negative fever chills Negative headache dizziness Negative chest pain palpitations SOB Negative nausea vomitting diarrhea constipation Negative numbness tingling rash swelling Physical Exam Constitutional: WD/WN, vitals as above + obese, cooperative and comfortable Eyes: PERRL, conjunctivae normal, anicteric sclerae ENMT: oropharynx moist Neck: 2 masses identified on right angle of jaw by ear, 7cm and 5cm in diameter overlapping, erythematous tender to light touch warm. Patient also expresses pain on palpation to left angle of jaw. Respiratory: normal respiratory effort, lungs clear to auscultation Cardiovascular: RRR, no murmur, no edema Heart Sounds: normal S1 and normal S2 Gastrointestinal (Abdomen): Inspection/Auscultation: abdomen normal to inspection and normal bowel sounds; abdomen not distended Percussion/Palpation: + abdomen tender (RLQ, chronic, extends to back, worse on twisting motion) and abdomen soft Musculoskeletal: no cyanosis or clubbing, extremities motor strength 5/5 Skin: no rashes, warm and dry Psychiatric: A+Ox3, euthymic affect Results & Data Results & Data ([facility]) Vital Signs (Past 12 Hours) Vital Signs Temp Pulse Pulse Resp BP BP Pulse Ox 03/06/21 21:35 75 18 174/89 H 95 03/06/21 19:35 74 20 166/87 H 97 03/06/21 15:39 36.8 C 86 18 156/97 H 94 Laboratory Results 03/06/21 03/06/21 03/06/21 Range/Units 20:31 18:35 18:35 WBC 15.55 H (4.8-10.8) K/uL RBC 5.08 (4.7-6.1) M/uL Hgb 16.7 (14.0-18.0) g/dL Hct 48.0 (42-52) % MCV 94.5 (80-100) fL MCH 32.9 (25-34) pg MCHC 34.8 (32-36) g/dL RDW Std Deviation 46.3 (36.4-46.3) fL RDW Coeff of Marek 13.4 (11.5-14.5) % Plt Count 181 (130-400) K/uL MPV 11.4 H (7.4-10.4) fL Immature Gran % (Auto) 0.3 % Neut % (Auto) 77.3 % Lymph % (Auto) 10.4 % Bremer % (Auto) 11.3 % Eos % (Auto) 0.5 % Baso % (Auto) 0.2 % Neut # (Auto) 12.02 H (1.4-6.5) K/uL Lymph # (Auto) 1.61 (1.2-3.4) K/uL Bremer # (Auto) 1.76 H (0.11-0.59) K/uL Eos # (Auto) 0.08 (0-0.5) K/uL Baso # (Auto) 0.03 (0-0.2) K/uL Immature Gran # (Auto) 0.05 H (0.00-0.02) K/uL Sodium 134 L (136-145) mmol/L Potassium 3.9 (3.5-5.1) mmol/L Chloride 100 (98-107) mmol/L Carbon Dioxide 28 (21-32) mmol/L Anion Gap 6.0 (3-11) BUN 12 (7-18) mg/dl Creatinine 1.14 (0.6-1.4) mg/dl Est Cr Clr Drug Dosing 72.2 ml/min Est GFR ( Amer) 73.0 ml/min Est GFR (Non-Af Amer) 63.0 ml/min BUN/Creatinine Ratio 10.2 (10-20) Glucose 110 H (70-99) mg/dl Calcium 9.0 (8.5-10.1) mg/dl SARS-CoV-2, RNA, NAAT NEGATIVE (NEGATIVE) Diagnostic Findings Soft Tissue Neck CT 03/06/21 18:20 CT SCAN OF THE NECK WITH IV CONTRAST CLINICAL HISTORY: Right neck/parotid swelling COMPARISON STUDY: No priors. TECHNIQUE: Following the IV administration of 95 cc of Optiray 320, CT scan of the soft tissues of the neck was performed from the skull base to the upper chest. Images are reviewed in the axial, sagittal, and coronal planes. IV contrast was administered without complication. A dose lowering technique was utilized adhering to the principles of ALARA. CT DOSE: 380.06 mGy.cm FINDINGS: Pharynx: The pharyngeal soft tissues are normal in appearance. The pharyngeal airway is widely patent. There is no evidence of mass lesion. The vocal cords are symmetric. The parapharyngeal fat is well maintained. The prevertebral/re tropharyngeal soft tissues are within normal limits. The epiglottis is normal. Lymphadenopathy: Prominent right cervical chain lymph nodes are likely reactive Thyroid: Normal in size and attenuation. Salivary glands: The right parotid gland is enlarged and heterogeneous with surrounding infiltration and fluid. Fluid tracks inferiorly along the sternocleidomastoid muscle. This is deep to the marker at site of interest and the appearance is typical for parotitis. No calcified sialoliths are identified in the parotid duct is normal in caliber. No organized fluid collection is seen suggest abscess. The left parotid gland and the submandibular glands are normal in appearance. Brain parenchyma: The visualized brain parenchyma at the skull base is normal in appearance. Vascular structures: The carotid arteries are patent. There is atherosclerotic calcification of the carotid bulbs. Skeletal structures: The skeletal structures are osteopenic. Imaged portions of the calvarium at the skull base are within normal limits. The cervical spine appears intact noting multilevel spondylosis. No lytic or blastic lesion is seen. Sinuses and mastoids: The visualized paranasal sinuses are clear. The mastoid air cells are well pneumatized. Orbits: The bony orbits are intact. Orbital contents are normal as visualized. Lung apices: Apical scarring is noted. Visualized apical upper lobe lung parenchyma is otherwise clear as imaged. IMPRESSION: Findings are consistent with right-sided parotitis. This is deep to the marker at the site of interest and clinical correlation will be required. ACT 112: Negative or not required by law. Electronically signed by: Ti Mathews M.D. 03/06/2021 7:36 PM Medications Administered Current Inpatient Medications Amantadine HCl (Amantadine Hcl 100 Mg Capsule) 100 mg PO ONE ONE Stop: 03/06/21 21:59 Atorvastatin Calcium (Atorvastatin 40 Mg Tab) 40 mg PO ONE ONE Stop: 03/06/21 21:59 Carbidopa/Levodopa (Carbidopa/Levodopa 50/200mg Ext Rel Tab) 1 tab PO ONE ONE Stop: 03/06/21 22:01 Carbidopa/Levodopa (Carbidopa/Levodopa 25/100mg Tab) 2 tab PO NOW STA Stop: 03/06/21 21:58 Diltiazem HCl (Diltiazem Hcl 60 Mg Tab) 180 mg PO NOW ONE Stop: 03/06/21 21:58 Gabapentin (Gabapentin 800 Mg Tab) 900 mg PO ONE ONE Stop: 03/06/21 22:02 Supervising Physician Co-Signing Physician Notes Attending addendum: I have physically seen this patient, have supervised the medical residents activities, and agree with the H&P unless as otherwise noted. Assessment and Plan: Acute right-sided parotitis- History of blocked salivary glands Continue Unasyn 3 g IV every 6 hours, begun in ED If nonresponsive, will consult ENT Remaining orders and notations as noted Resident Activity Tracking Resident Involvement: Resident Care Provided Care Provided: Adult [facility]
[2021-03-06] MEDS ORDERED: CARBIDOPA/LEVODOPA 25/100MG TAB PO STA (21:57)
[2021-03-06] MEDS ORDERED: AMANTADINE HCL 100 MG CAPSULE PO ONE (21:58)
[2021-03-06] MEDS ORDERED: ATORVASTATIN 40 MG TAB PO ONE (21:58)
[2021-03-06] MEDS ORDERED: CARBIDOPA/LEVODOPA 50/200MG EXT REL TAB PO ONE (22:00)
[2021-03-06] MEDS ORDERED: dilTIAZem HCL 180 MG CAPCR PO ONE (22:30)
[2021-03-06] MEDS ORDERED: GABAPENTIN 300 MG CAP PO ONE (22:30)
[2021-03-06] MEDS ORDERED: FAMOTIDINE 20 MG TAB PO PRN (23:02)
[2021-03-06] MEDS ORDERED: ACETAMINOPHEN 325 MG TAB PO PRN (23:02)
[2021-03-06] MEDS ORDERED: POLYETHYLENE (MIRALAX) 17 GM PACK PO PRN (23:02)
[2021-03-06] MEDS ORDERED: ONDANSETRON INJ 2 MG/ML 2 ML VIAL IV PRN (23:02)
[2021-03-07] MEDS: AMPICILLIN/SULBACTAM SOD 3,000 MG in 0.9 % SODIUM CHLORIDE 100 ML IV SCH ×4 (01:15→18:57)
[2021-03-07] MEDS: CARBIDOPA/LEVODOPA 25/100MG TAB PO SCH ×3 (06:17→18:42)
[2021-03-07 06:43] LABS: Basophils # (auto) 0.04 K/uL (0-0.2); Basophils % (auto) 0.5 %; Eosinophils # (auto) 0.18 K/uL (0-0.5); Eosinophils % (auto) 2.1 %; Hemoglobin 14.3 g/dL (14.0-18.0); Immature Granulocytes # (auto) 0.02 K/uL (0.00-0.02); Immature Granulocytes % (auto) 0.2 %; Lymphocytes # (auto) 2.08 K/uL (1.2-3.4); Lymphocytes % (auto) 24.4 %; Mean Corpuscular Hemoglobin 32.4 pg (25-34); Mean Platelet Volume 10.9 fL (7.4-10.4); Monocytes # (auto) 1.06 K/uL (0.11-0.59); Monocytes % (auto) 12.4 %; Neutrophils # (auto) 5.14 K/uL (1.4-6.5); Neutrophils % (auto) 60.4 %; Platelet Count 162 K/uL (130-400); RDW Coefficient of Variation 13.4 % (11.5-14.5); RDW Standard Deviation 46.9 fL (36.4-46.3); Red Blood Count 4.42 M/uL (4.7-6.1); White Blood Count 8.52 K/uL (4.8-10.8)
[2021-03-07 07:10] LABS: BUN Creatinine Ratio 12.9 (10-20); Calcium 8.4 mg/dl (8.5-10.1); Creatinine Clr Calc Pharmacy 81.5 ml/min; Est GFR (African American) 84.5 ml/min; Est GFR (Non-African American) 72.9 ml/min; Potassium 3.4 mmol/L (3.5-5.1)
--- NOTE | 2021-03-07 07:14 | Hospitalist Progress Note ---
Date of Service March 07, 2021 Assessment & Plan (1) Acute suppurative parotitis: Plan: 75yo Male presents with right sided facial pain and swelling ongoing 2 days. PMH parkinson's, HTN HLD neuropathy GERD prostate cancer s/p prostectomy. ()Parotitis -R sided facial swelling 2 days, note 7cm and 5cm diameter lumps -different from his usual yearly blocked salivary gland, not improved with ice -WBC 15.55, no fever -CT Neck: Findings are consistent with right-sided parotitis. This is deep to the marker at the site of interest and clinical correlation will be required. -given unasyn 3g IV in ED. -WBC 8.52 this morning. Swelling going down since patient arrived. -continue unasyn 3g IV q6h, if demonstrate clinical improvement can switch to amoxicillin-clavulanate 875/125 PO BID, total 10 days -trend cbc, bmp; monitor vitals. ()Parkinsons -continue carbidopa/levodopa, amantadine ()Neuropathy -continue gabapentin ()HTN -continue diltiazem, ASA, spironolactone ()HLD -continue atorvastatin ()Hx. Gout -continue allopurinol ()Chronic back pain -continue duloxetine ()GERD -continue omeprazole FENa: regular Code Status: full DVT PPX: SCDs Dispo: med/surg Rylee Condon Do PGY 1, FCM (2) Acid reflux: (3) Parkinson's disease: (4) HLD (hyperlipidemia): (5) Hypertension: (6) Back pain: Admission and Anticipated Discharge Date Admission Date: March 06, 2021 Supervising Physician Co-Signing Physician Notes Patient seen and examined at bedside. Patient has acute suppurative parotitis. During face to face encounter, performed obtained brief history of today's symptoms and physical examination. Patient's parotitis, appears to be less severe as it has decreased in size. Discussed plan of care with Dr. Woo and patient. I reviewed above note and agree with it. Patient will be admitted and continued on IV antibiotics. Subjective Patient seen at the bedside this morning. Patient stated he is feeling fine with still some tenderness to touch at the right parotid gland/cheek. Stated he is able to swallow better today than when he first came in. Denies fevers, chills, nausea. Review of Systems Review of Systems: All systems reviewed & are unremarkable except as noted in HPI & below Physical Exam Constitutional: WD/WN, vitals as above ENMT: Notable swelling at the right cheek from inferior ear to top of mandible. Respiratory: normal respiratory effort, lungs clear to auscultation Cardiovascular: RRR, no murmur, no edema Gastrointestinal (Abdomen): normal bowel sounds, soft, nontender, no hepatosplenomegaly Results & Data Results & Data ([facility]) Vital Signs (Past 12 Hours) Vital Signs Temp Pulse Resp BP Pulse Ox 03/06/21 22:50 36.8 C 75 14 159/94 H 94 03/06/21 21:35 75 18 174/89 H 95 03/06/21 19:35 74 20 166/87 H 97 Resident Activity Tracking Resident Involvement: Resident Care Provided Care Provided: Adult Hospital Medicine
[2021-03-07] MEDS: allopurinoL 300 MG TAB PO SCH (08:40)
[2021-03-07] MEDS: AMANTADINE HCL 100 MG CAPSULE PO SCH ×2 (08:40→14:47)
[2021-03-07] MEDS: dilTIAZem HCL 180 MG CAPCR PO SCH ×2 (08:41→21:08)
[2021-03-07] MEDS: ASPIRIN 81 MG ECTAB PO SCH ×2 (08:41→21:06)
[2021-03-07] MEDS: CHOLECALCIFEROL 400 UNITS 10 MCG TAB PO SCH (08:41)
[2021-03-07] MEDS: DULoxetine HCL 30 MG CAP PO SCH (08:42)
[2021-03-07] MEDS: GABAPENTIN 300 MG CAP PO SCH ×2 (08:43→14:48)
[2021-03-07] MEDS: POTASSIUM CHLORIDE CRTAB 20 MEQ TABCR PO SCH ×3 (08:43→21:11)
[2021-03-07] MEDS: PANTOprazole 40 MG TAB PO SCH (08:43)
[2021-03-07] MEDS: SPIRONOLACTONE 25 MG TAB PO SCH (08:44)
--- NOTE | 2021-03-07 20:56 | Billing Data ---
Date of Service March 07, 2021 Coding Level of Care Code 66965 Subseq Obs Care Lvl 2
[2021-03-07] MEDS ORDERED: GABAPENTIN 300 MG CAP PO SCH (21:00)
[2021-03-07] MEDS ORDERED: CARBIDOPA/LEVODOPA 50/200MG EXT REL TAB PO SCH (21:00)
[2021-03-07] MEDS ORDERED: ATORVASTATIN 40 MG TAB PO SCH (21:00)
--- NOTE | 2021-03-07 21:56 | Billing Data ---
Date of Service March 07, 2021 Coding Level of Care Code INT OBSERVATION CARE 70M LVL 3
[2021-03-08] MEDS: AMPICILLIN/SULBACTAM SOD 3,000 MG in 0.9 % SODIUM CHLORIDE 100 ML IV SCH ×3 (01:55→12:47)
[2021-03-08] MEDS: CARBIDOPA/LEVODOPA 25/100MG TAB PO SCH ×3 (06:17→16:55)
[2021-03-08 06:30] LABS: Basophils # (auto) 0.03 K/uL (0-0.2); Basophils % (auto) 0.5 %; Eosinophils # (auto) 0.29 K/uL (0-0.5); Eosinophils % (auto) 5.2 %; Hematocrit (blood only) 43.4 % (42-52); Hemoglobin 14.7 g/dL (14.0-18.0); Immature Granulocytes # (auto) 0.02 K/uL (0.00-0.02); Immature Granulocytes % (auto) 0.4 %; Lymphocytes # (auto) 1.72 K/uL (1.2-3.4); Lymphocytes % (auto) 30.8 %; Mean Corpuscular Hemoglobin 32.5 pg (25-34); Mean Corpuscular Hgb Conc 33.9 g/dL (32-36); Mean Platelet Volume 11.6 fL (7.4-10.4); Monocytes # (auto) 0.76 K/uL (0.11-0.59); Monocytes % (auto) 13.6 %; Neutrophils # (auto) 2.76 K/uL (1.4-6.5); Neutrophils % (auto) 49.5 %; Platelet Count 176 K/uL (130-400); RDW Coefficient of Variation 13.4 % (11.5-14.5); Red Blood Count 4.52 M/uL (4.7-6.1); White Blood Count 5.58 K/uL (4.8-10.8)
[2021-03-08 06:58] LABS: BUN Creatinine Ratio 12.8 (10-20); Calcium 8.7 mg/dl (8.5-10.1); Creatinine Clr Calc Pharmacy 73.5 ml/min; Est GFR (African American) 74.6 ml/min; Est GFR (Non-African American) 64.4 ml/min; Potassium 3.9 mmol/L (3.5-5.1)
[2021-03-08] MEDS: POTASSIUM CHLORIDE CRTAB 20 MEQ TABCR PO SCH ×2 (07:37→12:49)
[2021-03-08] MEDS: AMANTADINE HCL 100 MG CAPSULE PO SCH ×2 (07:38→12:48)
[2021-03-08] MEDS: ASPIRIN 81 MG ECTAB PO SCH (07:38)
[2021-03-08] MEDS: CHOLECALCIFEROL 400 UNITS 10 MCG TAB PO SCH (07:39)
[2021-03-08] MEDS: SPIRONOLACTONE 25 MG TAB PO SCH (07:39)
[2021-03-08] MEDS: GABAPENTIN 300 MG CAP PO SCH ×2 (07:39→12:49)
[2021-03-08] MEDS: allopurinoL 300 MG TAB PO SCH (07:40)
[2021-03-08] MEDS: PANTOprazole 40 MG TAB PO SCH (07:40)
[2021-03-08] MEDS: DULoxetine HCL 30 MG CAP PO SCH (07:41)
[2021-03-08] MEDS: dilTIAZem HCL 180 MG CAPCR PO SCH (07:41)
--- NOTE | 2021-03-08 07:48 | Hospitalist Progress Note ---
Date of Service March 08, 2021 Assessment & Plan (1) Acute suppurative parotitis: Plan: 75yo Male presents with right sided facial pain and swelling ongoing 2 days. PMH parkinson's, HTN HLD neuropathy GERD prostate cancer s/p prostectomy. ()Parotitis -R sided facial swelling 2 days, note 7cm and 5cm diameter lumps -different from his usual yearly blocked salivary gland, not improved with ice -WBC 15.55, no fever -CT Neck: Findings are consistent with right-sided parotitis. This is deep to the marker at the site of interest and clinical correlation will be required. -given unasyn 3g IV in ED. -WBC 8.52 this morning. Swelling going down since patient arrived. -continue unasyn 3g IV q6h, if demonstrate clinical improvement can switch to amoxicillin-clavulanate 875/125 PO BID, total 10 days -trend cbc, bmp; monitor vitals. ()Parkinsons -continue carbidopa/levodopa, amantadine ()Neuropathy -continue gabapentin ()HTN -continue diltiazem, ASA, spironolactone ()HLD -continue atorvastatin ()Hx. Gout -continue allopurinol ()Chronic back pain -continue duloxetine ()GERD -continue omeprazole FENa: regular Code Status: full DVT PPX: SCDs Dispo: med/surg Rylee Condon Do PGY 1, FCM (2) Acid reflux: (3) Parkinson's disease: (4) HLD (hyperlipidemia): (5) Hypertension: (6) Back pain: Admission and Anticipated Discharge Date Admission Date: March 06, 2021 Subjective Patient seen at bedside this morning. Results & Data Results & Data ([facility]) Vital Signs (Past 12 Hours) Vital Signs Temp Pulse Pulse Resp BP BP Pulse Ox 03/07/21 22:27 36.5 C 66 16 157/83 H 96 03/07/21 21:05 65 157/86 H
[2021-03-08] MEDS ORDERED: TORSEMIDE 10 MG TAB PO SCH (09:00)
[2021-03-08] MEDS ORDERED: OMEGA-3 (PURIFIED FISH OIL) 1 GM CAP PO SCH (09:00)
--- NOTE | 2021-03-08 12:22 | Discharge Summary ---
Date of Service March 08, 2021 Admission HPI Per Admitting Provider 75yo Male presents with right sided facial pain and swelling ongoing 2 days. PMH parkinson's, HTN HLD neuropathy GERD prostate cancer s/p prostectomy. Patient seen at bedside calm comfortable cooperative, here with . He states he thought it was his yearly case of salivary gland swelling that he usually treats with ice pack, this time it did not improve so he came to ED. States the swelling came within the course of a day, painful to the touch. He denies sick contacts, lives with his and 2 cats, COVID and flu vaccinated. He states the swelling causes difficulty swallowing but no SOB, fever/chills, nause a/vomitting. Patient denies smoking, drinks two 12oz beers 4-5 days a week, drinks 1c coffee daily. Occasionally uses Aleve. States he has some difficulty walking due to his parkinsons. Patient expressed understanding of his current condition, hopes he can get his COVID booster this coming Thursday. Admission Exam Per Admitting Provider Constitutional: WD/WN, vitals as above + obese, cooperative and comfortable Eyes: PERRL, conjunctivae normal, anicteric sclerae ENMT: oropharynx moist Neck: 2 masses identified on right angle of ja w by ear, 7cm and 5cm in diameter overlapping, erythematous tender to light touch warm. Patient also expresses pain on palpation to left angle of jaw. Respiratory: normal respiratory effort, lungs clear to auscultation Cardiovascular: RRR, no murmur, no edema Heart Sounds: normal S1 and normal S2 Gastrointestinal (Abdomen): Inspection/Auscultation: abdomen normal to inspection and normal bowel sounds; abdomen not distended Percussion/Palpation: + abdomen tender (RLQ, chronic, extends to back, worse on twisting motion) and abdomen soft Musculoskeletal: no cyanosis or clubbing, extremities motor strength 5/5 Skin: no rashes, warm and dry Psychiatric: A+Ox3, euthymic affect Principal Diagnosis Parotitis Discharge Exam Constitutional WD/WN, vitals as above Eyes PERRL, conjunctivae normal, anicteric sclerae ENMT Swelling from right inferior tragus to lateral mandible on right. Erythema present as well. Both swelling and erythema improved from previous day. Mild tenderness to palpation at swelling. Mild right anterior cervical lymphadenopathy. No tenderness, swelling, or lymphadenopathy on left. Respiratory normal respiratory effort, lungs clear to auscultation Cardiovascular RRR, no murmur, no edema Gastrointestinal (Abdomen) normal bowel sounds, soft, nontender, no hepatosplenomegaly Discharge Data Allergies Allergy/AdvReac Type Severity Reaction Status Date / Time simvastatin [From Zocor] AdvReac Intermediate Fatigue Verified 03/06/21 21:53 lisinopril AdvReac Cough Verified 03/06/21 21:52 Consultations 03/06/21 19:58 ED Decision to Admit Stat Ordered Studies 03/06/21 18:20 CT soft tissue neck w con Stat Salivary glands: The right parotid gland is enlarged and heterogeneous with surrounding infiltration and fluid. Fluid tracks inferiorly along the sternocleidomastoid muscle. This is deep to the marker at site of interest and the appearance is typical for parotitis. No calcified sialoliths are identified in the parotid duct is normal in caliber. No organized fluid collection is seen suggest abscess. The left parotid gland and the submandibular glands are normal in appearance. Findings are consistent with right-sided parotitis. This is deep to the marker at the site of interest and clinical correlation will be required. Hospital Course (1) Acute suppurative parotitis: 75yo Male presents with right sided facial pain and swelling ongoing 2 days. PMH parkinson's, HTN HLD neuropathy GERD prostate cancer s/p prostectomy. -R sided facial swelling 2 days. -different from his usual yearly blocked salivary gland, not improved with ice -WBC 15.55 on entry to hospital, no fever. -CT Neck:Findings are consistent with right-sided parotitis. This is deep to the marker at the site of interest and clinical correlation will be required. -given Unasyn 3g IV in ED. -WBC 5.58 this morning. Swelling and ease of swallow going down since patient arrived. -Received Unasyn 3g IV Q6h for 2 days. Sent home with instructions to take Augmentin 875-125 BID for 10 days and follow up with PCP. (2) Acid reflux: (3) Parkinson's disease: (4) HLD (hyperlipidemia): (5) Hypertension: (6) Back pain: Total Time Total Time Spent Total Time Spent (In Minutes): Please see attending attestation. Discharge Plan Discharge Items Patient Disposition: Home - Self-Care Reason For Visit: PAROTITIS Discharge Diagnosis: Parotitis Activity: Per Instructions section Non-emergency contact: Primary Care Provider Call non-emergency contact if: your symptoms worsen, your pain is worsening and your temperature is above 101 Follow-up/Referrals: Liliya Hinkle PA-C [Primary Care Provider] - Diet: Regular Addtl Attending Provider Instructions: A discharge summary will be sent to your primary care physician to ensure continuity of care. You came in for increased swelling and pain at your right cheek. This was most likely secondary to a bacterial infection. You were given antibiotics during the course of your stay with improvement. You voiced your swallowing was getting better and you were without fever for 24 hours under monitoring. You are safe to return home with antibiotics to finish up the course. It is important for you to follow up with your primary care provider for follow up on resolution of the bacterial infection. If you develop fevers or the swelling does not go away this could be concern for an abscess in the area. Follow-up: * You should be seen by your primary physician within the next 7 days to make sure your swelling has gone down and you're condition is not getting worse. Medications: Your medication list has been reviewed and reconciled upon discharge to ensure accuracy and continuity of care. An updated list of all your medications is included with your hospital discharge paperwork. Please review this list closely, and make note of any changes. * You will be taking Augmentin twice a day for 10 days. Be sure to take probiotics with food to help prevent potential diarrhea from the antibiotics. Take your medications as instructed; do not skip a dose of your medicines. Make sure all of your doctors know every medicine you are taking (including [id number]-[id number] medicines, vitamins, and supplements). let your primary care provider know before taking any new medicines because some of these may interact with your current medications, or may make your symptoms worse. CONTACT YOUR PRIMARY CARE PROVIDER if you experience any of the following: * Fevers or shaking chills * Your swelling gets worse. * Shortness of breath not relieved by inhalers, fainting * Sudden abdominal distension not relieved by catheterization. * Difficulty following your treatment plan, or difficulty taking medications CALL 911 OR GO TO THE EMERGENCY DEPARTMENT if you experience any of the following: * Sudden, severe abdominal pain or nausea/vomiting * You find you cannot eat or breathe or your eating or breathing is worsening. * Severe chest pain, or chest pain that radiates (moves) to your jaw or arm * Sudden, severe shortness of breath or difficulty breathing It was was our pleasure taking care of you here at [facility] . Thank you for allowing us to participate in your care. Pending Studies at Discharge: No Stand-Alone Forms: My [facility], Smoking Cessation Medications and DC Order Prescriptions: New amoxicillin-pot clavulanate [Augmentin] 875-125 mg tablet 1 tab PO BID 10 Days Qty: 20 RF: 0 Continued (DME) Raquel [facility] [place] See Rx Instructions .ROUTE .MEDSUPPLY Qty: 1 RF: 0 (DME) Arik [facility] [place] See Rx Instructions .MEDSUPPLY Qty: 1 RF: 0 famotidine 20 mg Tablet 20 mg PO BID PRN (Reason: Indigestion) RF: 0 gw-2-mll-epa-fish oil-vit D3 [Fish Oil-Vit D3] 300-1,000-1,000 mg-mg-unit Capsule 1 cap PO Q2D RF: 0 atorvastatin [Lipitor] 80 mg tablet 40 mg PO HS RF: 0 diltiazem HCl [Cardizem CD] 180 mg capsule,extended release 24hr 180 mg PO BID RF: 0 carbidopa-levodopa 50-200 mg tablet extended release 1 tab PO HS RF: 0 gabapentin 300 mg capsule 900 mg PO HS RF: 0 carbidopa-levodopa 25-100 mg tablet 2 tab PO QPM RF: 0 carbidopa-levodopa 25-100 mg tablet 3 tab PO BID RF: 0 amantadine HCl 100 mg Tablet 100 mg PO BID RF: 0 spironolactone [Aldactone] 25 mg Tablet 25 mg PO QAM RF: 0 omeprazole 20 mg Capsule,Delayed Release(Dr/Ec) 40 mg PO QAM RF: 0 potassium chloride 20 mEq Tablet Extended Release 20 meq PO TID RF: 0 gabapentin 300 mg capsule 300 mg PO BID RF: 0 allopurinol 300 mg tablet 300 mg PO DAILY RF: 0 acetaminophen 500 mg Tablet 500 mg PO QID PRN (Reason: Pain) RF: 0 cholecalciferol (vitamin D3) 10 mcg (400 unit) Tablet 10 mcg PO DAILY RF: 0 duloxetine 30 mg capsule,delayed release(DR/EC) 30 mg PO QAM RF: 0 aspirin 81 mg Capsule 81 mg PO BID RF: 0 torsemide 10 mg tablet 10 mg PO Q OTHER DAY RF: 0 Discharge Orders: Discharge Order (Routine); Ordered 03/08/21 Ordered By: Alok Woo Admission Data Admit Date/Time: 03/06/21 21:57 Attending Provider: Akshat Chapa Admit Provider: Rylee Condon Primary Care Provider: Liliya Hinkle Other Providers: Naun López Other Interventions: Discharge Summary Assessment (RN) Last Done: 03/08/21 17:00 Supervising Physician Co-Signing Physician Notes Patient seen and examined, chart reviewed, case discussed with Dr. Woo and I agree with the assessment and plan as above except as otherwise noted General: A&Ox3. NAD. Cooperative. HEENT: Minimally tender right jaw swelling without erythema, warmth, fluctuance. Uvula midline, no airway compromise. Pulm: CTAB A&P. -wheezes, -rales, -rhonchi. Symmetrical chest rise. No increase work of breathing. No respiratory distress. Cardiac: RRR, -mrg. Radial pulses intact and symmetrical. Abdominal: Nontender, nondistended, soft. BS present. All labs and images reviewed Patient with right-sided parotiditis clinically improving no signs of airway compromise. No fever/chills/sweats, clinically progressing well. We will continue conversion to oral Augmentin, return precautions given. Patient is independently ambulatory at baseline, is able to stand easily with arms crossed across chest and ambulates independently in room with good balance and a normal gait. 35 minutes spent including patient counseling, documentation, review of labs and images, and review of case with resident provider and patient. Resident Activity Tracking Resident Involvement: Resident Care Provided Care Provided: Adult Hospital Medicine
--- NOTE | 2021-03-08 18:10 | Billing Data ---
Date of Service March 08, 2021 Coding Level of Care Code D/C DAY MANAGEMENT >30 MINS
== END 2021-03-08 17:34 | disposition home or self-care (01) ==
LOC: ED 15:33 → 3W 15:33 → SUATTDRO 21:57 → 3W 22:37